=== PATIENT | male | born 1955 | race Caucasian/White ===

== ENCOUNTER → 2017-08-11 06:54 | Outpatient (CLI) | payer MEDICAID, SELFPAY ==
--- NOTE | 2017-08-11 06:57 | CT_ITS ---
STUDY: CT MAXILLOFACIAL SINUSES REASON FOR EXAM: Male, 61 years old. RADIATION DOSAGE (If Supplied By Facility): CTDIvol = ( 33.06 ) mGy, DLP = ( 858.64 ) mGycm TECHNIQUE: The patient was scanned in a multi detector CT scanner. High resolution axial imaging was performed without the administration of intravenous contrast material. Sagittal and coronal images were reconstructed. Individualized dose optimization techniques were used for this CT. COMPARISON: None. FINDINGS: FRONTAL SINUSES: Mucosal thickening of the frontal sinuses. ETHMOIDAL SINUSES: Opacification of the ethmoid sinuses bilaterally. MAXILLARY SINUSES: Mild degree of mucosal thickening of the left maxillary sinus. There is been prior resection of the medial aspects of both maxillary sinuses. SPHENOIDAL SINUSES: Mucosal thickening of the sphenoid sinuses. There is patency of the bilateral maxillary infundibuli with normal uncinate processes, ethmoid bullae, and hiatus semilunaris. Normal bilateral middle turbinates. Normal bilateral inferior turbinates. There is a left sided nasal septal deviation, but without a nasal septal spur. There is patency of the bilateral nasal airways. The visualized osseous structures are normal. The visualized bilateral orbital contents are normal. CT/Sinus/Facial Bone IMPRESSION: Medrano sinusitis. Electronically Signed: Juan Baires MD at 12:36 EST Tel [phone], Service support ,
== END ==
PROVIDERS: Family Provider Family Medicine; PCP Family Medicine; Visit Provider Otolaryngology
DX: J32.9 Chronic sinusitis, unspecified (principal)
CPT/HCPCS: 70486

== ENCOUNTER 2017-08-19 14:45 | Emergency (ER) | payer MEDICAID, SELFPAY ==
[2017-08-19 14:46] VITALS: BP 126/82; PULSE 70; RESP 16; TEMP 36.6; O2SAT 94; BMI 31.4
[2017-08-19 15:00] VITALS: O2SAT 92
--- NOTE | 2017-08-19 15:12 | RAD_ITS ---
STUDY: X-RAY CHEST REASON FOR EXAM: Male, 61 years old. Chest pain and shortness of breath. TECHNIQUE: Single AP portable view of the chest. COMPARISON: May 07, 2017. FINDINGS: Cardiac monitoring leads are present. There appears to be a neurostimulator within the spinal canal. The lungs are underexpanded. There is mild elevation of the right hemidiaphragm. There is right basilar subsegmental atelectasis. There is mild prominence of bronchovascular markings. There is no demonstrated pleural abnormality. There is borderline cardiomegaly. Normal mediastinum and marcell. Normal visualized pulmonary arteries. There is atherosclerotic calcification of the aortic arch with tortuosity. There is demineralization of the osseous structures. Normal visualized ribs, clavicles, and shoulders. There is no demonstrated abnormality of the visualized soft tissue structures of the upper abdomen. RAD/Chest 1 View (Portable) IMPRESSION: 1. Expiratory chest radiograph with pulmonary congestion. 2. A right basilar subsegmental atelectasis. Electronically Signed: Leyda Jain MD at 16:23 EST , Service support ,
--- NOTE | 2017-08-19 15:13 | EKG12_ITS ---
Test Reason : SOB Blood Pressure : / mmHG Vent. Rate : 071 BPM Atrial Rate : 000 BPM P-R Int : 000 ms QRS Dur : 090 ms QT Int : 394 ms P-R-T Axes : 000 -06 -44 degrees QTc Int : 428 ms Normal sinus rhythm Confirmed by ISHAN NGUYEN ([id number]), editorial manager DANY MONTALVO ([id number] on 08/22/2017 1:18:08 PM Referred By: JESUS Confirmed By:ISHAN NGUYEN
--- NOTE | 2017-08-19 15:24 | ED.DCSUM_ITS ---
- ER Visit Summary Date of Service: 08/19/17 Chief Complaint: Shortness of breath, pneumonia History of Present Illness: The patient is a 61 M patient reports fever, body aches, congestion, and cough for the past 6 days. He was seen at urgent care on the and was diagnosed with pneumonia. Patient had no labs or x-rays performed. He was started on albuterol, Medrol Dosepak, and Zithromax. Patient states he was told if not better 24 hours to go to the emergency room. Patient presents today stating he has not had any significant improvement. He does report when he was seen on the his pulse ox was initially 90% but did improve after an albuterol treatment. He has no known respiratory chronic illness. Physical Examination: Blood pressure is 126/82, temperature 97.8, heart rate 70 , respiratory rate 16, pulse ox 94% on room air. Patient sitting upright in bed in no acute distress. He appears nontoxic. Systolic blood pressure the time of my examination is in the 90s. Head and neck examination is unremarkable. Heart is regular rate and rhythm. Lung sounds are diminished throughout. He is speaking full sentences. Abdomen is soft nontender. Test Results: EKG is sinus at 71. No acute ischemia is noted. Artifact from spinal stimulator is noted. Portable chest x-ray reveals pulmonary congestion. Right basilar subsegmental atelectasis is noted. CBC was a white count of 4.1 with 73% neutrophils. Chemistry studies are significant only for glucose of 162. LFTs are normal. Troponin negative. BNP is normal at 56. Lactate is normal. Emergency Department Course and Treatment: Patient was given IV fluids and a cycle of aerosols. After initial round of aerosols there was slight improvement in his air movement. He received 2 more albuterol treatments. Patient was taken off of his supplemental oxygen. He is 92% on room air after returning from a relating to the restroom. He feels significantly improved. He was walked up and down the halls with his sats up to 96% with ambulation. Patient already has Medrol Dosepak, Zithromax, and albuterol at home. He is given a spacer for his inhaler. I also recommended taking Mucinex to help break up the chest congestion. Treatment Plan: [] Disposition: Discharge Impression: URI with bronchospasm This note was generated with Dragon dictation software. It may contain incorrect words, spelling, and punctuation that were not noted in review of the chart prior to signing ED Disposition - Plan for ED Patient: Chief Complaint: Shortness of Breath Referrals: Joshua Blood MD [Primary Care Provider] -
[2017-08-19] MEDS: Ipratropium/Albuterol Sulfate 3 ML AMPUL.NEB INHALATION (15:26)
[2017-08-19] MEDS: Albuterol 2.5 MG/3 ML VIAL.NEB. INHALATION ×4 (15:26→16:58)
[2017-08-19 15:29] VITALS: PULSE 65; RESP 16
[2017-08-19 15:31] LABS: Absolute Lymphocyte Count 0.72 X10^3/ul (0.83-4.51); Basophil# 0.02 X10^3/uL; Basophil% 0.5 % (0-1); Hematocrit 42.4 % (40-54); Hemoglobin 14.2 g/dl (13.0-16.5); Lymphocyte # 0.72 X10^3/ul (4.0); Lymphocyte % 17.7 % (19-41); Mean Corp Hgb Conc 33.5 g/gl (32-36); Mean Corpuscular Hgb 28.7 pg (27.0-32.0); Mean Corpuscular Volume 85.8 fL (80-94); Mean Platelet Vol. 10.4 fl (6.2-12.0); Monocyte# 0.36 X10^3/uL; Monocyte% 8.9 % (0-10); Neutrophil # 2.96 X10^3/uL (2.7-7.7); Neutrophil % 72.9 % (47-70); Platelet Count 152 K/mm3 (150-450); RBC Distribution Width CV 14.1 % (11.6-14.6); RBC Distribution Width SD 43.8 fl (35.1-43.9); Red Blood Count 4.94 M/mm3 (4.6-6.2); White Blood Count 4.1 K/mm3 (4.4-11.0)
[2017-08-19 15:36] LABS: POSITIVE COUNT NO; POSITIVE DIFFERENTIAL NO; POSITIVE MORPHOLOGY NO
[2017-08-19 15:44] LABS: AST(SGOT) 32 U/L (15-37); Alanine Aminotransfer ALT/SGPT 39 U/L (16-61); Albumin, Serum 3.3 g/dL (3.2-5.0); Alkaline Phosphatase 50 U/L (45-117); Anion Gap 8 (5-15); BUN 17 mg/dL (7-18); BUN/Creat Ratio 16.7 RATIO (10-20); Bilirubin, Direct 0.09 mg/dL (0.00-0.30); Calcium,Total 8.1 mg/dL (8.5-10.1); Chloride 107 mmol/L (98-107); Creatinine, Serum 1.02 mg/dL (0.70-1.30); EST Glomerular Filtration Rate 78 mL/min (>60); Est Glom Filt Rate - Afr Amer 95 mL/min (>60); Estimated Creatinine Clearance 79.98 ml/min; Globulin 3.7 g/dL (2.2-4.2); Glucose 162 mg/dL (74-106); Potassium 3.8 mmol/L (3.5-5.1); Sodium Level 139 mmol/L (136-145)
[2017-08-19] MEDS: 0.9% Normal Saline 1,000 ML 1000 ML IV (15:45)
[2017-08-19 16:24] LABS: Lactic Acid 1.8 mmol/L (0.4-2.0)
[2017-08-19 16:59] VITALS: PULSE 67; RESP 16
[2017-08-19 17:05] VITALS: BP 112/74; PULSE 64; RESP 17; O2SAT 96
[2017-08-19 17:28] VITALS: O2SAT 95
[2017-08-19 17:47] LABS: BNP,B-Type NATRIURETIC PEPTIDE 56.6 pg/mL (0-100)
--- NOTE | 2017-08-19 18:22 | ED.DEP ---
ED Disposition - Plan for ED Patient: Disposition: Home or Assisted Living Chief Complaint: Shortness of Breath Instructions: ED URI Viral W Wheezing Prescriptions: Guaifenesin [Mucinex] 1,200 mg PO BID PRN #10 tab PRN Reason: Chest Congestion/Secretions Referrals: Joshua Blood MD [Primary Care Provider] - 5-7 Days
== END 2017-08-19 18:33 | disposition home or self-care (01) ==
PROVIDERS: Emergency Provider Emergency Medicine; Family Provider Family Medicine; PCP Family Medicine
DX: J98.01 Acute bronchospasm (principal); J06.9 Acute upper respiratory infection, unspecified; J18.9 Pneumonia, unspecified organism; K21.9 Gastro-esophageal reflux disease without esophagitis; I10 Essential (primary) hypertension; E78.00 Pure hypercholesterolemia, unspecified; F41.9 Anxiety disorder, unspecified; Z79.51 Long term (current) use of inhaled steroids; Z79.82 Long term (current) use of aspirin; Z79.899 Other long term (current) drug therapy
CPT/HCPCS: 36415; 71045; 80048; 80076; 83605; 83880; 84484; 85025; 87040; 93005; 94640; 94664; 96360; 96361; 99284; J7030; A4216

== ENCOUNTER → 2019-01-25 | Outpatient (CLI) | payer OTHER, SELFPAY ==
--- NOTE | 2019-01-25 12:57 | CT_ITS ---
STUDY: CT LUMBAR SPINE WITHOUT CONTRAST REASON FOR EXAM: Male, 63 years old. Lumbar radiculopathy. Bilateral leg pain. History of multiple spinal surgeries and spinal cord stimulator. RADIATION DOSAGE (If Supplied By Facility): CTDIvol = ( 29.89 ) mGy, DLP = ( 853.84 ) mGycm TECHNIQUE: The patient was scanned in a multi detector CT scanner. High resolution transaxial imaging was performed. Images were obtained from T12 to the sixth. Sagittal and coronal images were reconstructed. Individualized dose optimization techniques were used for this CT. COMPARISON: None FINDINGS: Normal lumbar lordosis. There is no substantial scoliosis. Normal alignment of the lumbar vertebral bodies. There is no evidence of posterior fusion of L3-L5 with L4 laminectomy. There is no evidence of acute fracture or loss of vertebral axial height. T12-L1: There is endplate spondylosis. There is loss of disc height with vacuum disc phenomenon. There is facet joint degenerative change. Normal spinal canal and lateral recesses. Normal bilateral intervertebral neural foramina. L1-2: Endplate spondylosis. There is loss of disc height with a diffusely bulging annulus. There is facet joint degenerative change. Normal central canal and bilateral lateral recesses. Normal bilateral intervertebral neural foramina. L2-3: Loss of disc height with endplate spondylosis. There is a diffusely bulging annulus. There is facet joint degenerative change. There is minimal stenosis of the central canal. Normal bilateral lateral recesses. Narrowing on the bilateral intervertebral neural foramina without impingement on the exiting nerve root. L3-4: There is a disc spacer slightly to the left of center. There is surgical absence of the upper facet of the L4 vertebral body on the left. Normal central canal and bilateral lateral recesses. Normal bilateral intervertebral neural foramina. L4-5: There is a disc spacer to the left of center. There is surgical absence of the left facet joint. Normal central canal and bilateral lateral recesses. Normal bilateral intervertebral neural foramina. L5-S1: Normal endplates. There is mild loss of disc height with a minimal bulging annulus. There is marked facet joint degenerative change. Central canal. There is mild impingement on the lateral bilateral lateral recess. Normal bilateral intervertebral neural foramina. Mild atherosclerotic changes of the abdominal aorta. CT/Spine Lumbar without Contrast IMPRESSION: 1. Surgical fusion of L3-L5 as above. 2. Degenerative changes of the upper lumbar spine, as above. No acute fracture or subluxation. Electronically Signed: Aris Leonard DO at 17:08 EDT Tel [phone], Service support ,
== END | disposition home or self-care (01) ==
PROVIDERS: Family Provider Family Medicine; PCP Family Medicine
DX: M54.16 Radiculopathy, lumbar region (principal)
CPT/HCPCS: 72131

== ENCOUNTER → 2020-05-27 10:21 | Outpatient (CLI) | payer MEDICARE, SELFPAY ==
[2020-05-20 09:29] VITALS: BMI 30.7
--- NOTE | 2020-05-27 10:24 | ECHOD_ITS ---
Reason For Study: Arrhythmia Procedure This was a 2D Doppler, Color Flow transthoracic echocardiogram. Exam performed in department. Left Ventricle Normal LV size. The estimated ejection fraction is 53 %. Left ventricular systolic function is lower limits of normal. Stage 1 diastolic dysfunction. No regional wall motion abnormalities noted. Right Ventricle Normal RV size. Normal systolic function. Atria Normal left atrium. Normal right atrium. Bubble contrast study negative for right to left interatrial shunt. Mitral Valve Normal mitral valve. Mild (1+) eccentric mitral valve insufficiency. Tricuspid Valve Normal tricuspid valve. Mild tricuspid valve insufficiency. Pulmonary artery systolic pressure is 20 mmHg. Aortic Valve Normal aortic valve. Trisinus/trileaflet aortic valve. Pulmonic Valve Normal pulmonic valve. Great Vessels Normal aortic root. The pulmonary artery is normal size. Normal inferior vena cava. Pericardium/Pleural No pericardial effusion. Medication 22 gauge I.V. with prn adaptor inserted into right arm. Performed a rapid injection of agitated mix of 9 cc saline and 1cc air to assess for atrial septal defect. MMode/2D Measurements & Calculations LVIDd: 4.3 cm IVSd: 1.4 cm Ao root diam: 3.5 cm LVIDs: 2.7 cm LVPWd: 1.1 cm RVDd: 3.2 cm FS: 37.6 % LAV(MOD-bp): 50.3 ml EDV(MOD-sp4): 91.4 ml EDV(MOD-sp2): 90.4 ml LAV(MOD-bp) Indexed: 23.4 ml/m2 ESV(MOD-sp4): 44.4 ml EF(MOD-sp2): 54.3 % LAV(MOD-sp2): 57.3 ml EF(MOD-sp4): 51.5 % LAV(MOD-sp4): 43.8 ml SV(MOD-sp4): 47.1 ml SV(MOD-sp2): 49.1 ml LA A4 area: 17.0 cm2 LA dimension(2D): 4.2 cm RA A4 area: 10.8 cm2 Doppler Measurements & Calculations MV E max abraham: 55.9 cm/sec Lat Peak E' Abraham: 8.3 cm/sec Med Peak E' Abraham: 5.4 cm/sec MV A max abraham: 92.5 cm/sec E/E' lat: 6.8 E/E' med: 10.4 MV E/A: 0.60 LV V1 max: 91.3 cm/sec PA V2 max: 98.0 cm/sec TR max abraham: 202.0 cm/sec LV V1 max P.3 mmHg TR max P.4 mmHg Interpretation Summary Normal LV size. The estimated ejection fraction is 53 %. Left ventricular systolic function is lower limits of normal. Mild (1+) eccentric mitral valve insufficiency. Stage 1 diastolic dysfunction. Pulmonary artery systolic pressure is 20 mmHg. Ordering Physician: Bipin Fernandes Referring Physician: Aarti Resendiz M.D. Performed By: Leslie Contreras RDCS
== END ==
PROVIDERS: PCP Family Medicine; Referring Provider Internal Medicine Cardiovascular Disease; Visit Provider Internal Medicine Cardiovascular Disease
DX: R00.2 Palpitations (principal)
CPT/HCPCS: 93306; A4216

== ENCOUNTER → 2020-06-15 10:11 | Outpatient (CLI) | payer MEDICARE, SELFPAY ==
[2020-05-20 09:29] VITALS: BMI 30.7
== END ==
PROVIDERS: PCP Family Medicine; Referring Provider Registered Nurse; Visit Provider Registered Nurse
DX: R05 Cough (principal)
CPT/HCPCS: 87633; 87635; C9803; U0003

== ENCOUNTER → 2020-08-21 13:57 | Outpatient (CLI) | payer MEDICARE, SELFPAY ==
[2020-06-22 09:57] VITALS: BMI 29.0
--- NOTE | 2020-08-21 14:01 | RAD_ITS ---
STUDY: X-RAY - CERVICAL SPINE REASON FOR EXAM: Male, 64 years old. neck and right shoulder pain -- surgery years ago TECHNIQUE: 5 view(s) of the cervical spine were obtained. COMPARISON: None FINDINGS: Normal anterior atlantoaxial articulation. Normal odontoid process. There is straightening of the normal cervical lordosis. Status post anterior spinal fusion of C3, C4 and C5 with plate and screw hardware. Normal alignment of the fused segment and hardware. Interbody fusion hardware at C6 and C7. Facet articulations appear largely fused bilaterally. The oblique positioning is not ideal for evaluation of the foramen; however, I suspect a component of foraminal narrowing at most levels. The soft tissue structures are unremarkable. RAD/Cerv Spine 4 or 5 Views IMPRESSION: Straightening of the cervical spine status post anterior spinal fusion of C3, C4 and C5 with plate and screw hardware and interbody fusion of C6 and C7. Hardware appears in good position. Facet articulations appear largely fused bilaterally through these segments. I suspect significant foraminal narrowing bilaterally. CT evaluation recommended for more adequate visualization of the foramen. Electronically Signed: Shanti Mcintyre MD at 17:06 EST , Service support ,
== END ==
PROVIDERS: PCP Family Medicine; Referring Provider Family Medicine; Visit Provider Family Medicine
DX: M54.2 Cervicalgia (principal)
CPT/HCPCS: 72050

== ENCOUNTER 2021-10-02 11:16 | Outpatient (CLI) | payer MEDICARE, SELFPAY | END 2021-10-02 23:59 | disposition home or self-care (01) | LOC: LABSPEC 11:17 | PROVIDERS: PCP Family Medicine; Visit Provider Otolaryngology | DX: J32.9 Chronic sinusitis, unspecified (principal) | CPT/HCPCS: 87070; 87205 ==

== ENCOUNTER → 2021-10-14 | Outpatient (CLI) | payer MEDICARE, SELFPAY ==
--- NOTE | 2021-10-14 13:11 | CT_ITS ---
STUDY: CT MAXILLOFACIAL SINUSES REASON FOR EXAM: Male, 66 years old. CHRONIC SINUSITIS RADIATION DOSAGE (If Supplied By Facility): CTDIvol = ( 33.06 ) mGy, DLP = ( 780.13 ) mGycm TECHNIQUE: The patient was scanned in a multi detector CT scanner. High resolution axial imaging was performed without the administration of intravenous contrast material. Sagittal and coronal images were reconstructed. Individualized dose optimization techniques were used for this CT. COMPARISON: CT sinuses 08/11/2017. FINDINGS: FRONTAL SINUSES: Mucosal thickening bilateral greater on the left. ETHMOIDAL SINUSES: Partially opacified bilaterally. MAXILLARY SINUSES: Postsurgical changes bilaterally. Minimal mucosal thickening decreased compared to prior. SPHENOIDAL SINUSES: Minimal mucosal thickening. There is patency of the bilateral maxillary infundibuli with normal uncinate processes, ethmoid bullae, and hiatus semilunaris. Normal bilateral middle turbinates. Normal bilateral inferior turbinates. Mild leftward septal deviation. There is patency of the bilateral nasal airways. The visualized osseous structures are normal. The visualized bilateral orbital contents are normal. CT/Sinus/Facial Bone IMPRESSION: Pansinusitis similar to prior study. Electronically Signed: Jenni Acuna MD at 2:17 EDT ,
== END | disposition home or self-care (01) ==
LOC: CT 13:10
PROVIDERS: PCP Family Medicine; Referring Provider Otolaryngology; Visit Provider Otolaryngology
DX: J32.9 Chronic sinusitis, unspecified (principal)
CPT/HCPCS: 70486

== ENCOUNTER → 2022-05-05 | Outpatient (CLI) | payer MEDICARE, SELFPAY ==
--- NOTE | 2022-05-05 16:32 | CT_ITS ---
EXAM: CT SPINE - CERVICAL WITHOUT IV REASON FOR EXAM: Male, 66 years old. NECK PAIN CERVICAL RADICULITIS HISTORY: NECK PAIN CERVICAL RADICULITIS Individualized dose optimization techniques were used for this CT. TECHNIQUE: Multiplanar images were obtained of the cervical spine. IV contrast was not utilized. COMPARISON: xr 2.. FINDINGS: The vertebral bodies do maintain their height. The odontoid process is intact. No pre-vertebral soft tissue swelling is seen. The intravertebral disc height is lost. There are scattered lymph nodes in the neck. There are degenerative changes of the osseous structures. There is bilateral facet arthropathy. There are scattered levels of foraminal stenosis. There are vascular calcifications. Cervical spine fusion hardware noted. Fusion cages in place. CT/Spine Cervical without Contras IMPRESSION: Degenerative changes of the cervical spine. There are no acute findings. Electronically Signed: Trell Aguiar MD at 19:32 EST ,
== END | disposition home or self-care (01) ==
PROVIDERS: PCP Family Medicine
DX: M54.12 Radiculopathy, cervical region (principal)
CPT/HCPCS: 72125

== ENCOUNTER 2022-05-07 12:12 | Emergency (ER) | payer MEDICARE, SELFPAY ==
[2022-05-07 12:14] VITALS: BP 157/95; PULSE 93; RESP 14; TEMP 36.8; O2SAT 96; BMI 33.0
--- NOTE | 2022-05-07 12:37 | EDS_ITS ---
HPI History of Present Illness Chief Complaint: Dizziness Informant: patient Onset/Context/Timing Onset: Today Context: Sudden Onset Timing: Continuous Quality: Lightheaded Location: Generalized Worsened by: Nothing Relieved by: Nothing Narrative Narrative: Patient presents with dizziness that began today. Patient states he woke up and had a headache. Patient states he felt dizzy when he woke up. Patient describes it as a lightheaded feeling. Patient states nothing makes it worse and nothing makes it better. Patient admits to some increasing fatigue over the last few days. Patient states his blood pressure today was in the 150s systolic over upper 90s diastolic. Patient admits to a mild headache. Patient states nothing makes his dizziness worse and nothing makes it better. Patient denies any spinning sensation. Patient denies any nausea or vomiting. [facility] Medical History GERD (gastroesophageal reflux disease) Graves' disease Hyperlipidemia Obesity Home Medications fluticasone propionate 50 mcg/actuation nasal spray,suspension 9.9 ml NS PRN PRN Allergies 05/07/17 [History Last Taken Unknown] oxycodone-acetaminophen 5 mg-325 mg tablet 0.5 tab PO Q4H PRN PRN Pain 05/07/17 [History Last Taken Unknown] levothyroxine 25 mcg tablet (Levoxyl) 25 mcg PO DAILY 05/18/20 [History Last Taken Unknown] loratadine 10 mg disintegrating tablet (Alavert) 10 mg PO DAILY 05/18/20 [History Last Taken Unknown] pantoprazole 40 mg tablet,delayed release 40 mg PO DAILY 05/18/20 [History Last Taken Unknown] aspirin 81 mg tablet,delayed release (Adult Aspirin Regimen) 81 mg PO DAILY 05/20/20 [History Last Taken Unknown] ibuprofen 200 mg capsule 200 mg PO Q6H PRN 05/20/20 [History Last Taken Unknown] tizanidine 2 mg capsule 2 mg PO QHS 05/20/20 [History Last Taken Unknown] cholecalciferol (vitamin D3) 125 mcg (5,000 unit) capsule 125 mcg PO DAILY 06/22/20 [History Last Taken Unknown] multivitamin 1 tab PO DAILY 06/22/20 [History Last Taken Unknown] meclizine 25 mg tablet 25 mg PO Q8H PRN PRN Dizziness #20 tabs 05/07/22 [Rx Last Taken Unknown] Allergy/AdvReac Type Severity Reaction Status Date / Time promethazine [From Phenergan] AdvReac spinning Verified 05/07/22 12:14 Family History Brother Hypertension Heart disease Atrial Fib RFA Uncle CAD (coronary artery disease) maternal Myocardial infarction, Onset Age: 68 maternal Uncle CVA (cerebral vascular accident) Hypertension paternal Father Cancer lung cancer Grandmother Cancer lung Brother Heart disease Surgical History H/O arthroscopic knee surgery History of back surgery History of left heart catheterization (05/08/17) History of neck surgery S/P insertion of spinal cord stimulator Social History Smoking Status: Never smoker alcohol intake: never ROS ROS ED Constitutional Constitutional ED: Denies chills or fever(s) Eyes Eyes: Denies blurry vision or change in vision ENT ENT ED: Denies rhinorrhea or sore throat Cardiovascular Cardiovascular: Denies chest pain or palpitations Respiratory/Chest Respiratory/Chest: Denies cough or dyspnea Gastrointestinal Gastrointestinal: Denies nausea or vomiting Genitourinary Genitourinary ED: Denies dysuria or hematuria Musculoskeletal Musculoskeletal: Reports neck pain; Denies back pain Integumentary Denies abscess or rash Neurologic Neurologic: Reports headache(s); Denies weakness Allergic/Immunologic Allergic/Immunologic ED: Denies mouth swelling or urticaria EXAM Physical Exam Const Vital Signs: 05/07/22 12:14 05/07/22 12:44 05/07/22 13:35 Temperature 98.2 F Temperature Source Temporal Pulse Rate 93 Pulse Rate [Lying] 82 Pulse Rate [Sitting (for 1 minute prior to obtaining)] 96 Pulse Rate [Standing (for 1 minute prior to obtaining)] 96 Respiratory Rate 14 Respiratory Effort Normal Non-Labored Respiratory Pattern Normal Blood Pressure 157/95 H Blood Pressure [Lying] 157/97 H Blood Pressure [Sitting (for 1 minute prior to obtaining)] 138/101 H Blood Pressure [Standing (for 1 minute prior to obtaining)] 148/103 H Blood Pressure Mean 115 Blood Pressure Mean [Lying] 117 Blood Pressure Mean [Sitting (for 1 minute prior to obtaining)] 113 Blood Pressure Mean [Standing (for 1 minute prior to obtaining)] 118 Pulse Ox 96 Oxygen Delivery Method Room Air 05/07/22 14:20 Temperature Temperature Source Pulse Rate 84 Pulse Rate [Lying] Pulse Rate [Sitting (for 1 minute prior to obtaining)] Pulse Rate [Standing (for 1 minute prior to obtaining)] Respiratory Rate 18 Respiratory Effort Respiratory Pattern Blood Pressure 155/99 H Blood Pressure [Lying] Blood Pressure [Sitting (for 1 minute prior to obtaining)] Blood Pressure [Standing (for 1 minute prior to obtaining)] Blood Pressure Mean 117 Blood Pressure Mean [Lying] Blood Pressure Mean [Sitting (for 1 minute prior to obtaining)] Blood Pressure Mean [Standing (for 1 minute prior to obtaining)] Pulse Ox 93 Oxygen Delivery Method Room Air Positive well nourished and well developed General Appearance ED: well developed and NAD HEENT Reports moist mucous membranes Eyes PERRL and EOMs intact bilaterally Eyes Narrative: There is no nystagmus noted. Neck supple and no JVD Resp normal respiratory effort and clear to auscultation bilaterally Cardio regular rate, regular rhythm and no murmurs GI normal to inspection, nondistended, normoactive bowel sounds and non-tender Palpation: soft Extremity normal to inspection General Extremety ED: Negative for edema or tenderness General Extremity: Negative for edema Neuro oriented x3, CN's II-XII intact bilaterally and no sensory deficits noted Sensorium / Orientation: alert Motor Exam: strength 5/5 throughout Psych mental status grossly normal Skin no rashes or lesions noted MDM MDM MDM Narrative Medical decision making narrative: Patient was given IV fluids and meclizine here. CT scan of the brain was obtained. There is no acute intracranial abnormality. This was interpreted by the radiologist and reviewed by myself. CBC was within normal limits. Comprehensive metabolic profile was within normal limits. Patient is feeling better on reevaluation. Patient was able to ambulate to the bathroom without difficulty. Patient states his dizziness has improved. Patient was given a prescription for meclizine. Patient was instructed to continue to monitor his blood pressures at home. Patient was instructed to follow-up with his primary care physician in 3 to 5 days. Patient understood and was agreeable with the plan. All questions were answered. Lab Data Attestation: I reviewed the patient's lab results. Labs: Laboratory Results - last 24 hr 05/07/22 05/07/22 13:06 13:06 WBC 5.9 RBC 5.00 Hgb 15.1 Hct 44.0 MCV 88.0 MCH 30.2 MCHC 34.3 RDW Std Deviation 44.7 H RDW Coeff of Linda 13.9 Plt Count 266 MPV 9.4 Immature Gran % (Auto) 0.300 Neut % (Auto) 68.2 Lymph % (Auto) 21.9 [place] % (Auto) 6.0 Eos % (Auto) 2.7 Baso % (Auto) 0.9 Absolute Neuts (auto) 4.0 Absolute Lymphs (auto) 1.28 Nucleated RBC % 0 Sodium 140 Potassium 3.8 Chloride 108 H Carbon Dioxide 25.0 Anion Gap 7 BUN 17 Creatinine 1.02 Estim Creat Clear Calc 72.56 Est GFR (MDRD) Af Amer 94 Est GFR (MDRD) Non-Af 77 BUN/Creatinine Ratio 16.7 Glucose 139 H Calcium 9.2 Total Bilirubin 0.20 AST 17 ALT 24 Alkaline Phosphatase 53 Total Protein 7.2 Albumin 3.9 Globulin 3.3 Albumin/Globulin Ratio 1.2 Radiography Diagnostic Testing: Clinical Impression(s) from Imaging Studies Brain CT 05/07/22 12:43 IMPRESSION: No acute intracranial process identified. Mild chronic involutional and white matter changes. Mild paranasal sinus inflammatory disease. Electronically Signed: Manju Santana MD at 13:57 EST Reading Location ID and State: [facility] / ID Tel , Service support , Discharge Plan Triage Chief Complaint: Dizziness ED Provider: Param Bowman Dx/Rx/DC Orders Clinical Impression: Vertigo Instructions: ED Vertigo, Unspecified Prescriptions: New meclizine 25 MG tablet 25 mg PO Q8H PRN PRN (Reason: Dizziness) Qty: 20 0RF No Action pantoprazole 40 mg tablet,delayed release (DR/EC) 40 mg PO DAILY loratadine [Alavert] 10 mg tablet,disintegrating 10 mg PO DAILY levothyroxine [Levoxyl] 25 mcg tablet 25 mcg PO DAILY ibuprofen 200 mg capsule 200 mg PO Q6H PRN aspirin [Adult Aspirin Regimen] 81 mg tablet,delayed release (DR/EC) 81 mg PO DAILY cholecalciferol (vitamin D3) 125 mcg (5,000 unit) capsule 125 mcg PO DAILY multivitamin Tablet 1 tab PO DAILY oxycodone-acetaminophen 1 TABLET tablet 0.5 tab PO Q4H PRN PRN (Reason: Pain) fluticasone propionate 9.9 ML spray,suspension 9.9 ml NS PRN PRN (Reason: Allergies) tizanidine 2 mg capsule 2 mg PO QHS Primary Care Provider: Aarti Resendiz Referrals: Aarti Resendiz MD [Primary Care Provider] - 5-7 Days Disposition Disposition: Home, Self Care
--- NOTE | 2022-05-07 12:43 | CT_ITS ---
HISTORY: Dizziness. TECHNIQUE: Multiple axial images were obtained of the head without intravenous contrast. A radiation dose optimization technique was used for this scan. 261 images. COMPARISON: CT sinuses 10/14/2021. FINDINGS: BRAIN PARENCHYMA: Mild chronic small vessel ischemic gliosis. No acute intra-axial hemorrhage identified. CSF SPACES: Mild volume loss. Left parietal encephalomalacia, likely old infarct. No midline shift or other significant mass effect. No acute extra-axial hemorrhage seen. OTHER: Intact calvarium. Sinonasal postoperative change with mild frontal ethmoid mucosal thickening. Unremarkable orbits. CT/Brain/Head without Contrast IMPRESSION: No acute intracranial process identified. Mild chronic involutional and white matter changes. Mild paranasal sinus inflammatory disease. Electronically Signed: Manju Santana MD at 13:57 EST ,
[2022-05-07 12:44] VITALS: BP 138/101; BP 148/103; BP 157/97; PULSE 82; PULSE 96
[2022-05-07 13:13] LABS: Absolute Lymphocyte Count 1.28 X10^3/uL (0.83-4.51); Basophil# 0.05 X10^3/uL; Basophil% 0.9 % (0-1); Eosinophil# 0.16 X10^3/uL; Eosinophils% 2.7 % (0-5); Hemoglobin 15.1 g/dL (13.0-16.5); Lymphocyte # 1.28 X10^3/ul (0.83-4.51); Lymphocyte % 21.9 % (19-41); Mean Corp Hgb Conc 34.3 g/dL (32-36); Mean Corpuscular Hgb 30.2 pg (27.0-32.0); Mean Platelet Vol. 9.4 fl (6.2-12.0); Monocyte# 0.35 X10^3/uL; NRBC Flagged by Analyzer 0 % (0-5); Neutrophil # 3.99 X10^3/uL (2.7-7.7); Neutrophil % 68.2 % (47-70); Platelet Count 266 K/mm3 (150-450); RBC Distribution Width CV 13.9 % (11.6-14.6); RBC Distribution Width SD 44.7 fl (35.1-43.9); White Blood Count 5.9 K/mm3 (4.4-11.0)
[2022-05-07 13:29] LABS: ALB/GLOB Ratio 1.2 RATIO (0.9-2.4); AST(SGOT) 17 U/L (15-37); Alanine Aminotransfer ALT/SGPT 24 U/L (16-61); Albumin, Serum 3.9 g/dL (3.2-5.0); Alkaline Phosphatase 53 U/L (45-117); Anion Gap 7 (5-15); BUN 17 mg/dL (7-18); BUN/Creat Ratio 16.7 RATIO (10-20); Calcium,Total 9.2 mg/dL (8.5-10.1); Chloride 108 mmol/L (98-107); Creatinine, Serum 1.02 mg/dL (0.70-1.30); EST Glomerular Filtration Rate 77 mL/min (>60); Est Glom Filt Rate - Afr Amer 94 mL/min (>60); Estimated Creatinine Clearance 72.56 ml/min; Globulin 3.3 g/dL (2.2-4.2); Glucose 139 mg/dL (74-106); Potassium 3.8 mmol/L (3.5-5.1); Protein, Total 7.2 g/dL (6.4-8.2); Sodium Level 140 mmol/L (136-145)
[2022-05-07] MEDS: 0.9% Normal Saline 1,000 ML 1000 ML IV (13:33)
[2022-05-07] MEDS: Meclizine HCl 25 MG Tablet PO (14:18)
--- NOTE | 2022-05-07 14:19 | ED.RN ---
pt denies feeling dizzy at this time. was up to bathroom and back to bed.
[2022-05-07 14:20] VITALS: BP 155/99; PULSE 84; RESP 18; O2SAT 93
[2022-05-07 15:26] VITALS: RESP 16
== END 2022-05-07 15:40 | disposition home or self-care (01) ==
PROVIDERS: Emergency Provider Emergency Medicine; PCP Family Medicine; Visit Provider Emergency Medicine
DX: R42 Dizziness and giddiness (principal); E78.5 Hyperlipidemia, unspecified; R51.9 Headache, unspecified
CPT/HCPCS: 70450; 80053; 85025; 87428; 96360; 96361; 99285; J7030; A4216

== ENCOUNTER → 2023-02-07 | Outpatient (CLI) | payer MEDICARE, SELFPAY | END | disposition home or self-care (01) | LOC: CVS 13:22 | PROVIDERS: PCP Family Medicine; Referring Provider Physician Assistant Surgical; Visit Provider Physician Assistant Surgical | DX: S53.401A Unspecified sprain of right elbow, initial encounter (principal); M25.521 Pain in right elbow; M25.421 Effusion, right elbow; X58.XXXA Exposure to other specified factors, initial encounter ==

== ENCOUNTER 2023-07-21 15:49 | Outpatient (CLI) | payer MEDICARE, SELFPAY ==
--- OUTSIDE RECORDS SUMMARY | 2023-07-21 16:22 | XMS RPT_ITS | CCD ---
Author Name Unknown Address [address] [place] [address] Organization [facility] Care Team Providers Care Rug Setter [place] Name Role Phone CELY ASTORGA Unavailable Unavailable ARI ASTORGANETH Unavailable Unavailable ARI ASTORGANETH Unavailable Unavailable CELY ASTORGA Unavailable Unavailable NOEMI PAYAN Unavailable CELY ASTORGA E Unavailable Unavailable CELY ASTORGA Unavailable Unavailable Noemi Payan MD Primary Care Provider Noemi Payan MD Primary Care Provider Noemi Payan MD Primary Care Provider Noemi Payan MD Primary Care Provider HASAN, MIRIAN Referring Unavailable NOEMI PAYAN Primary Care Unavailab NOEMI Antoine Primary Care Unavailab le HASAN, MIRIAN Referring Unavailable NOEMI PAYAN Primary Care Unavailab le HASAN, MIRIAN Attending Unavailable NOEMI PAYAN Referring Unavailab le HASAN, MIRIAN Attending Unavailable NOEMI PAYAN Primary Care Unavailab hector Allergies Allergy Classification Reported Allergen(s) Allergy Type Date of Onset Reaction(s) Facility (8 sources) promethazine; Translations: [PROMETHAZINE HCL] Drug Allergy 7 Mental Status Change [facility] Repository (2 sources) Amoxicillin Drug Allergy 3 [facility] sources) Promethazine-Ph enylephrine Propensity to adverse reactions to drug 3 [facility] Work Phone: Medications Current Medications Medication Drug Class(es) Dates Sig (Normalized) Sig (Original) acetaminophen 325 mg / oxyCODONE hydrochloride 5 mg oral tablet (5 sources) Opioid Agonist Start: 03-03-2022 End: 04-02-2022 take 1 tablet by mouth once at bedtime oxyCODONE-acetaminop hen (PERCOCET) 5-325 MG per tablet Indications: Displacement of lumbar intervertebral disc without myelopathy Take 1 tablet by mouth in the morning and at bedtime for 30 days. 60 tablet 0 03/03/2022 04/02/2022 Active Completed/Discontinued Medications Medication Drug Class(es) Dates Sig (Normalized) Sig (Original) acetaminophen 250 mg / aspirin 250 mg / caffeine 65 mg oral tablet (2 sources) Platelet Aggregation Inhibitor, Nonsteroidal Anti-inflammatory Drug, Central Nervous System Stimulant, Methylxanthine take 1 tablet by mouth every six hours as needed for headache aspirin-acetamin ophen-caffeine (EXCEDRIN MIGRAINE) 250-250-65 MG per tablet Take 1 tablet by mouth every 6 hours as needed for Headaches 0 Suspended [id number] 200 actuat albuterol 0.09 mg/actuat metered dose inhaler (4 sources) beta2-Adrenergic Agonist Start: 08-24-2017 take 2 puff(s) by inhalation every four hours as needed for wheezing albuterol HFA (VENTOLIN HFA) 90 mcg/actuation inhaler Indications: Bacterial pneumonia Inhale 2 Puffs as instructed every 4 hours as needed for Wheezing/Shortne ss of Breath. 1 Inhaler 2 08/24/2017 Active Problems Active Problems Problem Classification Problem Date Documented Date Episodic/Chronic Diabetes mellitus without complication (9 sources) Prediabetes; Translations: [Prediabetes] Onset: 10-05-2018 Episodic Disorders of lipid metabolism (4 sources) Mixed hyperlipidemia; Translations: [Mixed hyperlipidemia] Onset: 06-13-2017 06-13-2017 Chronic Esophageal disorders (4 sources) Gastroesophageal reflux disease; Translations: [Gastro-esophageal reflux disease without esophagitis] 03-28-2017 Chronic Essential hypertension (1 source) Essential (primary) hypertension; Translations: [Essential (primary) hypertension] Onset: 04-26-2017 Chronic Nutritional deficiencies (8 sources) Vitamin D deficiency; Translations: [Vitamin D deficiency, unspecified] Onset: 09-11-2019 Chronic Other connective tissue disease (2 sources) Sympathetically maintained pain; Translations: [Neuralgia and neuritis, unspecified] 04-26-2018 Episodic Other lower respiratory disease (1 source) Snoring; Translations: [Snoring] Episodic Other nervous system disorders (2 sources) Complex regional pain syndrome; Translations: [Complex regional pain syndrome I, unspecified] 03-09-2017 Chronic Other nutritional; endocrine; and metabolic disorders (1 source) Obese class I; Translations: [Obesity, unspecified] Chronic Other nutritional; endocrine; and metabolic disorders (4 sources) Body mass index 30+ - obesity; Translations: [Obesity, unspecified] 03-28-2017 Chronic Other nutritional; endocrine; and metabolic disorders (2 sources) Obese class II; Translations: [Obesity, unspecified] Chronic Residual codes; unclassified (4 sources) H/O Spinal surgery; Translations: [Presence of other specified functional implants] 04-13-2017 Chronic Spondylosis; intervertebral disc disorders; other back problems (12 sources) Degeneration of cervical intervertebral disc; Translations: [Other cervical disc degeneration, unspecified cervical region] Onset: 05-16-2013 03-28-2017 Chronic Spondylosis; intervertebral disc disorders; other back problems (9 sources) Chronic back pain ; Translations: [Dorsalgia, unspecified] Onset: 05-16-2013 03-28-2017 Episodic Thyroid disorders (13 sources) Hypothyroidism; Translations: [Hypothyroidism, unspecified] Onset: 02-09-2017 Chronic Unclassified (1 source) Unknown / UNK(Unknown) Onset: 04-26-2017 Past or Other Problems Problem Classification Problem Date Documented Da te Episodic/Chronic Malaise and fatigue (4 sources) Fatigue; Translations: [Other fatigue] Onset: 06-13-2017 06-13-2017 Episodic Nonspecific chest pain (2 sources) Chest pain, unspecified; Translations: [Chest pain, unspecified] Onset: 04-26-2017 Episodic Other circulatory disease (3 sources) Elevated blood-pressure reading without diagnosis of hypertension; Translations: [Elevated blood-pressure reading, without diagnosis of hypertension] Onset: 10-04-2022 Episodic Other lower respiratory disease (1 source) Other forms of dyspnea; Translations: [Other forms of dyspnea] Onset: 04-26-2017 Episodic Other non-traumatic joint disorders (3 sources) Shoulder pain; Translations: [Pain in left shoulder] Onset: 08-20-2019 08-20-2019 Episodic Other non-traumatic joint disorders (1 source) Pain in left shoulder; Translations: [Pain in joint, shoulder region] Onset: 08-20-2019 08-20-2019 Episodic Results Test Name Value Interpretation Reference Range Facil ity Vital Signs Date Time Vital Sign Value Performing Clinician Faci lity 04-06-2023 09:23-0400 Body height 172.7 cm Mirian Carias MD Work Phone: [facility] 04-06-2023 09:23-0400 Body weight 104.33 kg Mirian Carias MD Work Phone: [facility] 04-06-2023 09:23-0400 Diastolic blood pressure 81 mm[Hg] Mirian Carias MD Work Phone: [facility] 04-06-2023 09:23-0400 Heart rate 83 /min Mirian Carias MD Work Phone: [facility] 04-06-2023 09:23-0400 Respiratory rate 16 /min Mirian Carias MD Work Phone: [facility] 04-06-2023 09:23-0400 SaO2% (BldA) [Mass fraction] 96 % Mirian Carias MD Work Phone: [facility] 04-06-2023 09:23-0400 Systolic blood pressure 130 mm[Hg] Mirian Carias MD Work Phone: [facility] 10-04-2022 09:11-0400 Diastolic blood pressure 94 mm[Hg] Mirian Carias MD Work Phone: [facility] 10-04-2022 09:11-0400 Systolic blood pressure 147 mm[Hg] Mirian Carias MD Work Phone: [facility] 10-04-2022 08:23-0400 Body height 172.7 cm Mirian Carias MD Work Phone: [facility] 10-04-2022 08:23-0400 Body temperature 97.5 [degF] Mirian Carias MD Work Phone: [facility] 10-04-2022 08:23-0400 Body weight 107.5 kg Mirian Carias MD Work Phone: [facility] 10-04-2022 08:23-0400 Heart rate 85 /min Mirian Carias MD Work Phone: [facility] 10-04-2022 08:23-0400 Respiratory rate 19 /min Mirian Carias MD Work Phone: [facility] 10-04-2022 08:23-0400 SaO2% (BldA) [Mass fraction] 97 % Mirian Carisa MD Work Phone: [facility] 06-16-2022 13:11-0500 Diastolic blood pressure 95 mm[Hg] [facility] [employer] 06-16-2022 13:11-0500 Heart rate 72 /min Robin Johansen MD [facility] [employer] 06-16-2022 13:11-0500 Respiratory rate 18 /min Robin Johansen MD Work [facility] [employer] 06-16-2022 13:11-0500 SaO2% (BldA) [Mass fraction] 95 % Robin Johansen MD [facility] 06-16-2022 13:11-0500 Systolic blood pressure 155 mm[Hg] Robin Johansen MD [facility] 06-16-2022 12:56-0500 Body temperature 97.5 [degF] Robin Johansen MD Work Phone: [facility] [employer] 06-16-2022 11:26-0500 Body height 180.3 cm Robin Johansen MD Work Phone[facility] 06-16-2022 11:26-0500 Body mass index (BMI) [Ratio] 29.99 kg/m2 Robin Johansen MD Work Phone: [facility] [employer] 06-16-2022 11:26-0500 Body weight 97.52 kg Robin Johansen MD [facility] 03-31-2022 13:08-0400 Diastolic blood pressure 88 mm[Hg] Robin Johansen MD [facility] 03-31-2022 13:08-0400 Heart rate 77 /min Robin Johansen MD [facility] 03-31-2022 13:08-0400 Respiratory rate 16 /min Robin Johansen MD [facility] 03-31-2022 13:08-0400 SaO2% (BldA) [Mass fraction] 96 % Robin Johansen MD [facility] 03-31-2022 13:08-0400 Systolic blood pressure 135 mm[Hg] Robin Johansen MD [facility] Phone[facility] 03-31-2022 11:37-0400 Body height 180.3 cm Robin Johansen MD Work Phone[facility] 03-31-2022 11:37-0400 Body mass index (BMI) [Ratio] 29.99 kg/m2 Robin Johansen MD [facility] 03-31-2022 11:37-0400 Body temperature 98.4 [degF] Robin Johansen MD [facility] 03-31-2022 11:37-0400 Body weight 97.52 kg Robin Johansen MD [facility] 12-30-2021 15:16-0400 Body height 180.3 cm Mirian Carias MD Work Phone: [facility] 12-30-2021 15:16-0400 Body weight 102.97 kg Mirian Carias MD Work Phone: [facility] 12-30-2021 15:16-0400 Diastolic blood pressure 89 mm[Hg] Mirian Carias MD Work Phone: [facility] 12-30-2021 15:16-0400 Heart rate 76 /min Mirian Carias MD Work Phone: [facility] 12-30-2021 15:16-0400 SaO2% (BldA) [Mass fraction] 96 % Mirian Carias MD Work Phone: [facility] 12-30-2021 15:16-0400 Systolic blood pressure 140 mm[Hg] Mirian Carias MD Work Phone: [facility] Encounters Encounter Date Encounter Type Care Provider Facility Start: 04-13-2023 End: 04-14-2023 [facility] Facility:[facility] Start: 04-06-2023 End: 04-06-[address] [facility] Facility:[facility] Start: 04-06-2023 End: 04-06-2023 Patient encounter procedure Mirian Carias MD Work Phone: Endocrinology Procedures Date Procedure Procedure Detail Performing Clinician Start: 01-21-2020 Adult depression screening assessment Mirian Carias MD Work Phone: Start: 09-25-2018 Lipid 1996 panel - S edison or Plasma Mirian Carias MD Work Phone: Plan of Treatment Date Care Activity Detail Author Start: 10-04-2025 Diabetes Screening Diabetes Screenin g [facility] Start: 01-03-2025 DIABETES SCREEN DIABETES SCREEN [facility] Start: 07-02-2024 DIABETES SCREEN DIABETES SCREEN [facility] Start: 09-26-2023 Lipid 1996 panel - Serum or Plasma Lipid Screening [facility] Start: 09-26-2023 LIPID SCREEN LIPID SCREEN [facility] Start: 04-06-2023 End: 06-06-2023 Hemoglobin A1c in Blood HGB A1C Lab Routine Prediabetes Expected: 04/06/2023, Expires: 06/06/2023 [facility] Work Phone: Immunizations Immunization Date Immunization Notes Care Provider Fa socoty 04-27-2020 pneumococcal conjuga te vaccine, 13 valent Mirian Carias MD Work Phone: [facility] 03-30-2020 influenza virus vacc ine, unspecified formulation Mirian Carias MD Work Phone: [facility] 04-16-2019 influenza, seasonal, injectable Mirian Carias MD Work Phone: [facility] Payers Date Payer Category Payer Medicare MMO MEDICARE MMO MEDADVANTAGE O [id number] 2018-Present [phone] [address] [place] [id number] O [id number] 2018 Medicare MMO MEDICARE MMO MEDADVANTAGE O [id number] 2018-Present [phone] [address] [place] [id number] O [id number] 2018 Unknown [id number] 1999 Unknown ESIS ESIS [id number] 1999-Present [address] [place] [address] [id number] Unknown [id number] Social History Date Type Detail Facility Start: 09-03-2016 End: 04-06-2023 Tobacco smoking status NHIS Never smoked tobacco [facility] Start: 09-03-2016 End: 04-06-2023 Tobacco use and exposure Smokeless tobacco non-user [facility] Start: 12-30-2021 End: 04-06-2023 Alcohol intake Current non-drinker of alcohol (finding) [facility] Start: 01-21-2020 History SDOH Alcohol Frequency 1 [facility] Start: 01-21-2020 History SDOH Physica l Activity MPS 0 [facility] Start: 01-21-2020 History SDOH Stress 2 [facility] Start: 01-21-2020 History SDOH Financial 4 [facility] Start: 01-21-2020 Education 12 [facility] Start: 1955 Sex Assigned At Not on file [facility] Start: 12-20-2021 End: 06-16-2022 Exposure to SARS-CoV-2 (event) Not sure [facility] Start: 01-21-2020 End: 04-06-2023 History of Social function [facility] Start: 01-21-2020 End: 04-06-2023 Alcohol Use Disorder Identification Test - Consumption [AUDIT-C] [facility] How often to you hav e a drink containing alcohol? Never [facility] Average Number of Drinks Not on file [facility] How hard is it for y ou to pay for the very basics like food, housing, medical care, and heating Not very hard [facility] Do you feel stress - tense, restless, nervous, or anxious, or unable to sleep at night because your mind is troubled all the time - these days [OSQ] Only a little [facility] (I/We) worried wheth er (my/our) food would run out before (I/we) got money to buy more. Never true [facility] Clinical Notes 12-30-2021 to 04-06-2023 Patient InstructionsMirian Carias MD - 04/06/2023 9:34 AM EDTPatient InstructionsMirian Carias MD - 10/04/2022 8:39 AM Umesh Gonzalez RN - 06/16/2022 1:27 PM ESTDischarge Instructions Note Date & Type Note Facility 04-06-2023 Note HNO ID: [id number] Author: Mirian Carias MD Service: ? Author Type: Physician Type: Progress Notes Filed: 04/06/2023 9:58 AM Note Text: Subjective: Jimena Simms is a 67 year old male here for hypothyroidism, vitamin D deficiency and pre-diabetes follow up. Interval history: Steroid injection in neck Reports increased stressors - his best friend is sick Previously, he had Graves disease, which has been in remission. History in brief, initially he had hypothyroidism and took Synthroid for few years Hyperthyroidism was diagnosed 3 years ago when he lost weight and developed palpitations At that time, he was started on methimazole Subsequently, he became hypothyroid and methimazole was discontinued in Feb 2017. In September 2018, his TSH was 5 and was started on Levothyroxine at that time Current treatment: Levothyroxine 50 mcg daily He ran out of levothyroxine 50 mcg a week ago, so he has been taking 25 mcg daily Previous treatment: Levothyroxine 25 mcg daily He takes protonix at night General symptoms: Fatigue: yes Energy level varies Weight change: weight loss of 7 lbs since last visit Change in bowel habits: No Temperature intolerance: No Pre-diabetes- last A1c was 5.9 He does more activity during summer time Vitamin D deficiency: He takes vitamin D 5000 IU intermittently REVIEW OF SYSTEMS: Answers submitted by the patient for this visit: Core Review of Systems (Submitted on 04/06/2023) Fever : No Night Sweats: No Recent Unintentional Weight Change: No Nasal Congestion: No Hearing Loss: Yes Vision Disturbance: No A Cough: No Difficulty Breathing?: No Chest Pain: No Irregular Heart Beat: No Leg Swelling: No Nausea: No Diarrhea: No Black Tarry Stools: No Difficulty Urinating?: No Awaken at Night More Than Once to Urinate?: No Joint Pain or Stiffness: Yes Muscle Aches: Yes Leg or Foot Discomfort at Night?: No A Rash: No Dizziness: No Headaches: Yes Memory Loss: No Seizures: No ALLERGIES: ALLERGIES Allergen Reactions Phenergan [Prometha* Mental Status Change MEDICATIONS: Current Outpatient Medications on File Prior to Visit Medication Sig loratadine (ALAVERT ORAL) Take by mouth. levothyroxine (SYNTHROID) 50 mcg tablet Take 1 tablet by mouth once daily. pantoprazole DR (PROTONIX) 40 mg tablet Take 1 tablet by mouth once daily. Take on empty stomach, 1/2 hr before meal. fluticasone (FLONASE) 50 mcg/actuation nasal spray USE TWO SPRAYS IN EACH NOSTRIL ONCE DAILY. RINSE MOUTH AFTER USE tiZANidine (ZANAFLEX) 2 mg tablet Take 2 mg by mouth once daily. oxyCODONE-acetaminophen (PERCOCET) 5-325 mg tablet Take 1 tablet by mouth every 4 hours as needed. PREDNISONE ORAL Take 1 tablet by mouth as needed. Lactobacillus acidophilus (FLORAJEN) 460 mg (20 billion cell) cap Take 460 mg by mouth once daily. meloxicam (MOBIC) 15 mg tablet Take 1 tablet by mouth once daily. With food. albuterol HFA (VENTOLIN HFA) 90 mcg/actuation inhaler Inhale 2 Puffs as instructed every 4 hours as needed for Wheezing/Shortness of Breath. atorvastatin (LIPITOR) 20 mg tablet Take 1 tablet by mouth daily at bedtime. For cholesterol. LORATADINE (CLARITIN ORAL) Take 1 tablet by mouth once daily. (Patient not taking: Reported on 10/04/2022) No current facility-administered medications on file prior to visit. PAST MEDICAL HISTORY: PAST MEDICAL HISTORY Diagnosis Date Allergic rhinitis Appendicitis Chronic back pain 2/2 injury at work for [employer]. Seeing Dr. Johansen pain management DDD (degenerative disc disease), cervical DDD (degenerative disc disease), lumbar Environmental allergies GERD (gastroesophageal reflux disease) Graves disease seeing Dr. Carias Hyperlipidemia Hypothyroidism Obesity (BMI 35.0-39.9 without comorbidity) Prediabetes Status post insertion of spinal cord stimulator PHYSICAL EXAM: BP 130/81 Pulse 83 Resp 16 Ht 172.7 cm (5' 8 ) Wt 104.3 kg (230 lb) SpO2 96% BMI 34.97 kg/m? General:Alert and oriented x3, no acute distress Eyes: Anicteric sclera. Pupils are equally round. Extraocular motions intact Thyroid: normal size, normal texture, no palpable nodules Lungs: Breathing unlabored, clear to auscultation. No wheezing Heart regular rate and rhythm, no murmer Abdomen:Normal abdominal sounds, non tender to palpation Neuro: Gait normal. Sensation grossly intact. No focal findings Musculoskeletal: Muscular strength intact, No joint swelling Extremities without edema, no deformities Skin: no rashes/ erythema LAB: Latest Reference Range AND Units 01/03/22 07:22 10/04/22 09:25 Hemoglobin A1C 4.3 - 5.6 % 6.2 (H) 5.9 (H) Estimated Average Glucose mg/dL 131 123 Free T4 0.9 - 1.7 ng/dL 1.2 TSH 0.270 - 4.200 mIU/L 2.690 2.950 Vitamin D 25 Hydroxy 31.0 - 80.0 ng/mL 38.5 ASSESSMENT/PLAN: 1) Hypothyroidism Clinically, he appears euthyroid Restart levothyroxine 50 mcg daily Updat (more content not included)... [facility] 04-06-2023 Instructions Mirian Carias MD - 04/06/2023 9:47 AM EDT Restart levothyroxine 50 mcg daily Get labs drawn in 7-10 days I will send you a message in my chart once the lab results become available Follow up in 6 months documented in this encounter [facility] 04-06-2023 History of Presen t illness Narrative Subjective: Jimena Simms is a 67 year old male here for hypothyroidism, vitamin D deficiency and pre-diabetes follow up. Interval history: Steroid injection in neck Reports increased stressors - his best friend is sick Previously, he had Graves disease, which has been in remission. History in brief, initially he had hypothyroidism and took Synthroid for few years Hyperthyroidism was diagnosed 3 years ago when he lost weight and developed palpitations At that time, he was started on methimazole Subsequently, he became hypothyroid and methimazole was discontinued in Feb 2017. In September 2018, his TSH was 5 and was started on Levothyroxine at that time Current treatment: Levothyroxine 50 mcg daily He ran out of levothyroxine 50 mcg a week ago, so he has been taking 25 mcg daily Previous treatment: Levothyroxine 25 mcg daily He takes protonix at night General symptoms: Fatigue: yes Energy level varies Weight change: weight loss of 7 lbs since last visit Change in bowel habits: No Temperature intolerance: No Pre-diabetes- last A1c was 5.9 He does more activity during summer time Vitamin D deficiency: He takes vitamin D 5000 IU intermittently REVIEW OF SYSTEMS: Answers submitted by the patient for this visit: Core Review of Systems (Submitted on 04/06/2023) Fever : No Night Sweats: No Recent Unintentional Weight Change: No Nasal Congestion: No Hearing Loss: Yes Vision Disturbance: No A Cough: No Difficulty Breathing?: No Chest Pain: No Irregular Heart Beat: No Leg Swelling: No Nausea: No Diarrhea: No Black Tarry Stools: No Difficulty Urinating?: No Awaken at Night More Than Once to Urinate?: No Joint Pain or Stiffness: Yes Muscle Aches: Yes Leg or Foot Discomfort at Night?: No A Rash: No Dizziness: No Headaches: Yes Memory Loss: No Seizures: No ALLERGIES: ALLERGIES Allergen Reactions Phenergan [Prometha* Mental Status Change MEDICATIONS: Current Outpatient Medications on File Prior to Visit Medication Sig loratadine (ALAVERT ORAL) Take by mouth. levothyroxine (SYNTHROID) 50 mcg tablet Take 1 tablet by mouth once daily. pantoprazole DR (PROTONIX) 40 mg tablet Take 1 tablet by mouth once daily. Take on empty stomach, 1/2 hr before meal. fluticasone (FLONASE) 50 mcg/actuation nasal spray USE TWO SPRAYS IN EACH NOSTRIL ONCE DAILY. RINSE MOUTH AFTER USE tiZANidine (ZANAFLEX) 2 mg tablet Take 2 mg by mouth once daily. oxyCODONE-acetaminophen (PERCOCET) 5-325 mg tablet Take 1 tablet by mouth every 4 hours as needed. PREDNISONE ORAL Take 1 tablet by mouth as needed. Lactobacillus acidophilus (FLORAJEN) 460 mg (20 billion cell) cap Take 460 mg by mouth once daily. meloxicam (MOBIC) 15 mg tablet Take 1 tablet by mouth once daily. With food. albuterol HFA (VENTOLIN HFA) 90 mcg/actuation inhaler Inhale 2 Puffs as instructed every 4 hours as needed for Wheezing/Shortness of Breath. atorvastatin (LIPITOR) 20 mg tablet Take 1 tablet by mouth daily at bedtime. For cholesterol. LORATADINE (CLARITIN ORAL) Take 1 tablet by mouth once daily. (Patient not taking: Reported on 10/04/2022) No current facility-administered medications on file prior to visit. PAST MEDICAL HISTORY: PAST MEDICAL HISTORY Diagnosis Date Allergic rhinitis Appendicitis Chronic back pain 2/2 injury at work for [employer]. Seeing Dr. Johansen pain management DDD (degenerative disc disease), cervical DDD (degenerative disc disease), lumbar Environmental allergies GERD (gastroesophageal reflux disease) Graves disease seeing Dr. Carias Hyperlipidemia Hypothyroidism Obesity (BMI 35.0-39.9 without comorbidity) Prediabetes Status post insertion of spinal cord stimulator PHYSICAL EXAM: BP 130/81 Pulse 83 Resp 16 Ht 172.7 cm (5' 8 ) Wt 104.3 kg (230 lb) SpO2 96% BMI 34.97 kg/m General:Alert and oriented x3, no acute distress Eyes: Anicteric sclera. Pupils are equally round. Extraocular motions intact Thyroid: normal size, normal texture, no palpable nodules Lungs: Breathing unlabored, clear to auscultation. No wheezing Heart regular rate and rhythm, no murmer Abdomen:Normal abdominal sounds, non tender to palpation Neuro: Gait normal. Sensation grossly intact. No focal findings Musculoskeletal: Muscular strength intact, No joint swelling Extremities without edema, no deformities Skin: no rashes/ erythema LAB: Latest Reference Range & Units 01/03/22 07:22 10/04/22 09:25 Hemoglobin A1C 4.3 - 5.6 % 6.2 (H) 5.9 (H) Estimated Average Glucose mg/dL 131 123 Free T4 0.9 - 1.7 ng/dL 1.2 TSH 0.270 - 4.200 mIU/L 2.690 2.950 Vitamin D 25 Hydroxy 31.0 - 80.0 ng/mL 38.5 ASSESSMENT/PLAN: 1) Hypothyroidism Clinically, he appears euthyroid Restart levothyroxine 50 mcg daily Update thyroid function function in 7-10 days 2) Pre-diabetes: 3) Obesity/BMI 34 Last A1c was 5.9 Patient has been successful losing weight since last visit Update an A1c 4) Vitamin D deficiency Vitamin D level was optimal Continue 5000 international unit(s) daily I will send him a message in my chart once the lab results become available Follow up in 6 months Mirian Carias MD documented in this encounter [facility] 10-04-2022 Note HNO ID: [id number] Author: Mirian Carias MD Service: ? Author Type: Physician Type: Progress Notes Filed: 10/04/2022 9:37 AM Note Text: Subjective: Jimena Simms is a 67 year old male here for hypothyroidism, vitamin D deficiency and pre-diabetes follow up. Interval history: He has DDD in C spine He received an epidural injection. Patient reports weight gain and intermittent fluctuations in his BP. Patient also received 2 epidural injection in his back last year Previously, he had Graves disease, which has been in remission. History in brief, initially he had hypothyroidism and took Synthroid for few years Hyperthyroidism was diagnosed 3 years ago when he lost weight and developed palpitations At that time, he was started on methimazole Subsequently, he became hypothyroid and methimazole was discontinued in Feb 2017. In September 2018, his TSH was 5 and was started on Levothyroxine at that time Current treatment: Levothyroxine 50 mcg daily He takes vitamin D along with Levothyroxine Previous treatment: Levothyroxine 25 mcg daily He takes protonix at night General symptoms: Fatigue: yes Energy level varies Weight change: weight gain of 10 lbs since last visit No changes in eating habits Change in bowel habits: No Temperature intolerance: No Pre-diabetes- last A1c was 6.2 Physical activity decreased during winter time Vitamin D deficiency: He takes vitamin D 5000 IU intermittently BP is elevated today He monitors BP at home No headaches or vision changes REVIEW OF SYSTEMS: Answers submitted by the patient for this visit: Core Review of Systems (Submitted on 09/27/2022) Fever : No Night Sweats: No Recent Unintentional Weight Change: Yes Nasal Congestion: No Hearing Loss: Yes Vision Disturbance: Yes A Cough: No Difficulty Breathing?: No Chest Pain: No Irregular Heart Beat: No Leg Swelling: No Nausea: No Diarrhea: No Black Tarry Stools: No Difficulty Urinating?: No Awaken at Night More Than Once to Urinate?: Yes Joint Pain or Stiffness: Yes Muscle Aches: Yes Leg or Foot Discomfort at Night?: No A Rash: No Dizziness: No Headaches: No Memory Loss: No Seizures: No ALLERGIES: ALLERGIES Allergen Reactions Phenergan [Prometha* Mental Status Change MEDICATIONS: Current Outpatient Medications on File Prior to Visit Medication Sig loratadine (ALAVERT ORAL) Take by mouth. levothyroxine (SYNTHROID) 50 mcg tablet Take 1 tablet by mouth once daily. pantoprazole DR (PROTONIX) 40 mg tablet Take 1 tablet by mouth once daily. Take on empty stomach, 1/2 hr before meal. fluticasone (FLONASE) 50 mcg/actuation nasal spray USE TWO SPRAYS IN EACH NOSTRIL ONCE DAILY. RINSE MOUTH AFTER USE tiZANidine (ZANAFLEX) 2 mg tablet Take 2 mg by mouth once daily. oxyCODONE-acetaminophen (PERCOCET) 5-325 mg tablet Take 1 tablet by mouth every 4 hours as needed. PREDNISONE ORAL Take 1 tablet by mouth as needed. Lactobacillus acidophilus (FLORAJEN) 460 mg (20 billion cell) cap Take 460 mg by mouth once daily. meloxicam (MOBIC) 15 mg tablet Take 1 tablet by mouth once daily. With food. albuterol HFA (VENTOLIN HFA) 90 mcg/actuation inhaler Inhale 2 Puffs as instructed every 4 hours as needed for Wheezing/Shortness of Breath. atorvastatin (LIPITOR) 20 mg tablet Take 1 tablet by mouth daily at bedtime. For cholesterol. LORATADINE (CLARITIN ORAL) Take 1 tablet by mouth once daily. (Patient not taking: Reported on 10/04/2022) No current facility-administered medications on file prior to visit. PAST MEDICAL HISTORY: PAST MEDICAL HISTORY Diagnosis Date Allergic rhinitis Appendicitis Chronic back pain 2/2 injury at work for [employer]. Seeing Dr. Johansen pain management DDD (degenerative disc disease), cervical DDD (degenerative disc disease), lumbar Environmental allergies GERD (gastroesophageal reflux disease) Graves disease seeing Dr. Carias Hyperlipidemia Hypothyroidism Obesity (BMI 35.0-39.9 without comorbidity) Prediabetes Status post insertion of spinal cord stimulator PAST SURGICAL HISTORY Procedure Laterality Date APPENDECTOMY COLONOSCOPY IR RADIO FREQUENCY ABLATION lumbar spine x2 PAST SURGICAL HISTORY OF cervical spine fusion PAST SURGICAL HISTORY OF fusion of L3-L5 PAST SURGICAL HISTORY OF microdiscectomy PAST SURGICAL HISTORY OF Right knee arthroscopy for meniscal tear PAST SURGICAL HISTORY OF ventral hernia repair PAST SURGICAL HISTORY OF sinus surgery S SPINAL CORD STIMULATOR, Social History Tobacco Use Smoking status: Never Smokeless tobacco: Never Substance Use Topics Alcohol use: No Drug use: No PHYSICAL EXAM: BP 142/92 (BP Site: Left Arm, BP Position: Sitting, BP Cuff Size: Extra Large Adult) Pulse 85 Temp 36.4 ?C (97.5 ?F) (Oral) Resp 19 Ht 172.7 cm (5' 8 ) Wt 107.5 kg (237 lb) SpO2 97% BMI 36.04 kg/m? General:Alert and oriented x3, no acute distress (more content not included)... [facility] 10-04-2022 Instructions Mirian Carias MD - 10/04/2022 8:50 AM EDT Get labs drawn. I will send you a message in my chart once the lab results become available Follow up in 6 months documented in this encounter [facility] 10-04-2022 History of Presen t illness Narrative Subjective: Jimena Simms is a 67 year old male here for hypothyroidism, vitamin D deficiency and pre-diabetes follow up. Interval history: He has DDD in C spine He received an epidural injection. Patient reports weight gain and intermittent fluctuations in his BP. Patient also received 2 epidural injection in his back last year Previously, he had Graves disease, which has been in remission. History in brief, initially he had hypothyroidism and took Synthroid for few years Hyperthyroidism was diagnosed 3 years ago when he lost weight and developed palpitations At that time, he was started on methimazole Subsequently, he became hypothyroid and methimazole was discontinued in Feb 2017. In September 2018, his TSH was 5 and was started on Levothyroxine at that time Current treatment: Levothyroxine 50 mcg daily He takes vitamin D along with Levothyroxine Previous treatment: Levothyroxine 25 mcg daily He takes protonix at night General symptoms: Fatigue: yes Energy level varies Weight change: weight gain of 10 lbs since last visit No changes in eating habits Change in bowel habits: No Temperature intolerance: No Pre-diabetes- last A1c was 6.2 Physical activity decreased during winter time Vitamin D deficiency: He takes vitamin D 5000 IU intermittently BP is elevated today He monitors BP at home No headaches or vision changes REVIEW OF SYSTEMS: Answers submitted by the patient for this visit: Core Review of Systems (Submitted on 09/27/2022) Fever : No Night Sweats: No Recent Unintentional Weight Change: Yes Nasal Congestion: No Hearing Loss: Yes Vision Disturbance: Yes A Cough: No Difficulty Breathing?: No Chest Pain: No Irregular Heart Beat: No Leg Swelling: No Nausea: No Diarrhea: No Black Tarry Stools: No Difficulty Urinating?: No Awaken at Night More Than Once to Urinate?: Yes Joint Pain or Stiffness: Yes Muscle Aches: Yes Leg or Foot Discomfort at Night?: No A Rash: No Dizziness: No Headaches: No Memory Loss: No Seizures: No ALLERGIES: ALLERGIES Allergen Reactions Phenergan [Prometha* Mental Status Change MEDICATIONS: Current Outpatient Medications on File Prior to Visit Medication Sig loratadine (ALAVERT ORAL) Take by mouth. levothyroxine (SYNTHROID) 50 mcg tablet Take 1 tablet by mouth once daily. pantoprazole DR (PROTONIX) 40 mg tablet Take 1 tablet by mouth once daily. Take on empty stomach, 1/2 hr before meal. fluticasone (FLONASE) 50 mcg/actuation nasal spray USE TWO SPRAYS IN EACH NOSTRIL ONCE DAILY. RINSE MOUTH AFTER USE tiZANidine (ZANAFLEX) 2 mg tablet Take 2 mg by mouth once daily. oxyCODONE-acetaminophen (PERCOCET) 5-325 mg tablet Take 1 tablet by mouth every 4 hours as needed. PREDNISONE ORAL Take 1 tablet by mouth as needed. Lactobacillus acidophilus (FLORAJEN) 460 mg (20 billion cell) cap Take 460 mg by mouth once daily. meloxicam (MOBIC) 15 mg tablet Take 1 tablet by mouth once daily. With food. albuterol HFA (VENTOLIN HFA) 90 mcg/actuation inhaler Inhale 2 Puffs as instructed every 4 hours as needed for Wheezing/Shortness of Breath. atorvastatin (LIPITOR) 20 mg tablet Take 1 tablet by mouth daily at bedtime. For cholesterol. LORATADINE (CLARITIN ORAL) Take 1 tablet by mouth once daily. (Patient not taking: Reported on 10/04/2022) No current facility-administered medications on file prior to visit. PAST MEDICAL HISTORY: PAST MEDICAL HISTORY Diagnosis Date Allergic rhinitis Appendicitis Chronic back pain 2/2 injury at work for [employer]. Seeing Dr. Johansen pain management DDD (degenerative disc disease), cervical DDD (degenerative disc disease), lumbar Environmental allergies GERD (gastroesophageal reflux disease) Graves disease seeing Dr. Carias Hyperlipidemia Hypothyroidism Obesity (BMI 35.0-39.9 without comorbidity) Prediabetes Status post insertion of spinal cord stimulator PAST SURGICAL HISTORY Procedure Laterality Date APPENDECTOMY COLONOSCOPY IR RADIO FREQUENCY ABLATION lumbar spine x2 PAST SURGICAL HISTORY OF cervical spine fusion PAST SURGICAL HISTORY OF fusion of L3-L5 PAST SURGICAL HISTORY OF microdiscectomy PAST SURGICAL HISTORY OF Right knee arthroscopy for meniscal tear PAST SURGICAL HISTORY OF ventral hernia repair PAST SURGICAL HISTORY OF sinus surgery S SPINAL CORD STIMULATOR, Social History Tobacco Use Smoking status: Never Smokeless tobacco: Never Substance Use Topics Alcohol use: No Drug use: No PHYSICAL EXAM: BP 142/92 (BP Site: Left Arm, BP Position: Sitting, BP Cuff Size: Extra Large Adult) Pulse 85 Temp 36.4 C (97.5 F) (Oral) Resp 19 Ht 172.7 cm (5' 8 ) Wt 107.5 kg (237 lb) SpO2 97% BMI 36.04 kg/m General:Alert and oriented x3, no acute distress Eyes: Anicteric sclera. Pupils are equally round. Extraocular motions intact Thyroid: normal size, normal texture, no palpable nodules Lungs: Breathing unlabored, clear to auscultation. No wheezing Heart regular rate and rhythm, no murmer Abdomen:Normal abdominal sounds, non tender to palpation Neuro: Gait normal. Sensation grossly intact. No focal findings Musculoskeletal: Muscular strength intact, No joint swelling Extremities without edema, no deformities Skin: no rashes/ erythema LAB: Latest Reference Range & Units 07/02/21 12:17 01/03/22 07:22 Hemoglobin A1C 4.3 - 5.6 % 6.1 (H) 6.2 (H) Estimated Average Glucose mg/dL 128 131 Free T4 0.9 - 1.7 ng/dL 1.0 1.2 TSH 0.270 - 4.200 mIU/L 4.930 (H) 2.690 Vitamin D 25 Hydroxy 31.0 - 80.0 ng/mL 40.8 ASSESSMENT/PLAN: 1) Hypothyroidism Clinically, he appears euthyroid Update thyroid function function today Then will adjust levothyroxine dose accordingly I educated the patient on proper administration of this medication which includes taking it on an empty stomach and alteast 2 hour apart from Calcium, iron and PPIs. Recommended him to take vitamin D in the evening 2) Pre-diabetes: 3) Obesity/BMI 36 Last A1c was 6.2 Weight gain since last visit- this is likely due to steroids Update an A1c Will consider starting metformin if A1c continues to trend up 4) Vitamin D deficiency Vitamin D level was optimal Continue 5000 international unit(s) daily 5) Elevated BP: 6) Snoring Initial DBP was elevated Repeat BP was unchanged He will continue to monitor BP at home Suggested him to talk to PCP regarding a sleep study I will send him a message in my chart once the lab results become available Follow up in 6 months Mirian Carias MD documented in this encounter [facility] 06-16-2022 History of Presen t illness Narrative DISCHARGE INSTRUCTIONS 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 VERBALIZED UNDERSTANDING OF INSTRUCTIONS AND WRITTEN INSTRUCTIONS GIVEN. DISCHARGED PER WHEELCHAIR. ASSESSMENT UNCHANGED EXCEPT NOTED. Pt arrived to PACU via stretcher. Report received from Cristina DELUCA. Vitals stable. Pt denies pain. Injection site - no bleeding noted. Will continue to monitor. Patient is able to demonstrate the ability to move from a reclining position to an upright position within the recliner. Pt checked in for procedure. IV started. 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 Will continue to monitor. documented in this encounter [facility] Work Phone: 06-16-2022 Hospital Discharg e instructions Jessica Jain RN - 06/16/2022 12:09 PM EST [facility] [phone] Post Pain Management Injection PATIENT INSTRUCTIONS: -Resume Normal Diet -Other ACTIVITY: -No driving or operating machinery for 8 hours post procedure without sedation and 24 hours with sedation. If you are seen driving during this time the proper authorities will be notified. -Do not stay alone for 4-6 hours after the procedure. -If you have had IV sedation, do not sign legal documents, make any major decisions, or be involved in work decisions for the remainder of the day. -May shower or bathe. -Resume normal activity when full movement/sensation has returned in extremities. 3) SITE CARE: -Observe puncture site for signs of infection (redness, warmth swelling, drainage with a foul odor, fever or increased tenderness). 4) EXPECTED SIDE EFFECTS: -Numbness/tingling/weakness in extremities, if this lasts more than [address] Johansen. -Muscle stiffness, soreness at puncture site (soreness may last 2-4 days). DIABETIC PATIENTS ONLY: -Increased glucose levels in all diabetic patients who have received a steroid injection. -Monitor blood sugars frequently for the first 5 days following procedure. -Adjust medication accordingly. 6) TO REACH DR. JOHANSEN: Call [phone] ADDITIONAL INSTRUCTIONS: Follow-up as scheduled or call for appointment if not already done. Patients taking Coumadin may resume taking as before the procedure. documented [facility] this encounter [facility] 03-31-[facility] History of Presen t illness Narrative Discharge instructions given to pt and verbalized understanding, states pain is at a tolerable level, no numbness or weakness noted,vitals stable, pt wheeled out to car without complications Pt arrived to PACU,A&O,no c/o pain and/or numbness or tingling, vitals stable, site unremarkable Patient was able to demonstrate the ability to move from a reclining position to an upright position within the recliner. documented in this encounter [facility]: 03-31-2022 Hospital Discharg e instructions Hyacinth Love RN - 03/31/2022 12:59 PM EDT [facility] [phone] Post Pain Management Injection PATIENT INSTRUCTIONS: -Resume Normal Diet -Other ACTIVITY: -No driving or operating machinery for 8 hours post procedure without sedation and 24 hours with sedation. If you are seen driving during this time the proper authorities will be notified. -Do not stay alone for 4-6 hours after the procedure. -If you have had IV sedation, do not sign legal documents, make any major decisions, or be involved in work decisions for the remainder of the day. -May shower or bathe. -Resume normal activity when full movement/sensation has returned in extremities. 3) SITE CARE: -Observe puncture site for signs of infection (redness, warmth swelling, drainage with a foul odor, fever or increased tenderness). 4) EXPECTED SIDE EFFECTS: -Numbness/tingling/weakness in extremities, if this lasts more than [address] Johansen. -Muscle stiffness, soreness at puncture site (soreness may last 2-4 days). DIABETIC PATIENTS ONLY: -Increased glucose levels in all diabetic patients who have received a steroid injection. -Monitor blood sugars frequently for the first 5 days following procedure. -Adjust medication accordingly. 6) TO REACH DR. JOHANSEN: Call [phone] ADDITIONAL INSTRUCTIONS: Follow-up as scheduled or call for appointment if not already done. Patients taking Coumadin may resume taking as before the procedure. documented in this encounter [employer] Phone: 12-30-2021 Instructions Mirian Carias MD - 12/30/2021 3:38 PM EDT Get labs drawn I will send you a message in my chart once the lab results become available Follow up to be determined based on the results documented in this encounter [facility] 12-30-2021 History of Presen t illness Narrative Subjective: Jimena Simms is a 66 year old male here for hypothyroidism, vitamin D deficiency and pre-diabetes follow up. Interval history: No new health issues Previously, he had Graves disease, which has been in remission. History in brief, initially he had hypothyroidism and took Synthroid for few years Hyperthyroidism was diagnosed 3 years ago when he lost weight and developed palpitations At that time, he was started on methimazole Subsequently, he became hypothyroid and methimazole was discontinued in Feb 2017. In September 2018, his TSH was 5 and was started on Levothyroxine at that time Current treatment: Levothyroxine 50 mcg daily Previous treatment: Levothyroxine 25 mcg daily He takes protonix at night General symptoms: Fatigue: yes Energy level varies Weight change: stable Appetite change: No Change in bowel habits: No Temperature intolerance: No Pre-diabetes- last A1c was 6.1 Continues to be physical active in the house Vitamin D deficiency: He takes vitamin D 5000 IU intermittently REVIEW OF SYSTEMS: ALLERGIES: ALLERGIES Allergen Reactions Phenergan [Prometha* Mental Status Change MEDICATIONS: Current Outpatient Medications on File Prior to Visit Medication Sig levothyroxine (SYNTHROID) 50 mcg tablet Take 1 tablet by mouth once daily. pantoprazole DR (PROTONIX) 40 mg tablet Take 1 tablet by mouth once daily. Take on empty stomach, 1/2 hr before meal. fluticasone (FLONASE) 50 mcg/actuation nasal spray USE TWO SPRAYS IN EACH NOSTRIL ONCE DAILY. RINSE MOUTH AFTER USE LORATADINE (CLARITIN ORAL) Take 1 tablet by mouth once daily. tiZANidine (ZANAFLEX) 2 mg tablet Take 2 mg by mouth once daily. oxyCODONE-acetaminophen (PERCOCET) 5-325 mg tablet Take 1 tablet by mouth every 4 hours as needed. PREDNISONE ORAL Take 1 tablet by mouth as needed. Lactobacillus acidophilus (FLORAJEN) 460 mg (20 billion cell) cap Take 460 mg by mouth once daily. meloxicam (MOBIC) 15 mg tablet Take 1 tablet by mouth once daily. With food. albuterol HFA (VENTOLIN HFA) 90 mcg/actuation inhaler Inhale 2 Puffs as instructed every 4 hours as needed for Wheezing/Shortness of Breath. atorvastatin (LIPITOR) 20 mg tablet Take 1 tablet by mouth daily at bedtime. For cholesterol. No current facility-administered medications on file prior to visit. PAST MEDICAL HISTORY: PAST MEDICAL HISTORY Diagnosis Date Allergic rhinitis Appendicitis Chronic back pain 2/2 injury at work for [employer]. Seeing Dr. Johansen pain management DDD (degenerative disc disease), cervical DDD (degenerative disc disease), lumbar Environmental allergies GERD (gastroesophageal reflux disease) Graves disease seeing Dr. Carias Hyperlipidemia Hypothyroidism Obesity (BMI 35.0-39.9 without comorbidity) Prediabetes Status post insertion of spinal cord stimulator PHYSICAL EXAM: BP 140/89 Pulse 76 Ht 180.3 cm (5' 11 ) Wt 103 kg (227 lb) SpO2 96% BMI 31.66 kg/m General:Alert and oriented x3, no acute distress Eyes: Anicteric sclera. Pupils are equally round. Extraocular motions intact Thyroid: normal size, normal texture, no palpable nodules Lungs: Breathing unlabored, clear to auscultation. No wheezing Heart regular rate and rhythm, no murmer Abdomen:Normal abdominal sounds, non tender to palpation Neuro: Gait normal. Sensation grossly intact. No focal findings Musculoskeletal: Muscular strength intact, No joint swelling Extremities without edema, no deformities Skin: no rashes/ erythema LAB: Ref. Range 07/02/2021 12:17 Hemoglobin A1C Latest Ref Range: 4.3 - 5.6 % 6.1 (H) Estimated Average Glucose Latest Units: mg/dL 128 Free T4 Latest Ref Range: 0.9 - 1.7 ng/dL 1.0 TSH Latest Ref Range: 0.270 - 4.200 uU/mL 4.930 (H) Vitamin D 25 Hydroxy Latest Ref Range: 31.0 - 80.0 ng/mL 40.8 ASSESSMENT/PLAN: 1) Hypothyroidism Clinically he appears euthyroid Update thyroid function function today Then will adjust levothyroxine dose accordingly I educated the patient on proper administration of this medication which includes taking it on an empty stomach and alteast 2 hour apart from Calcium, iron and PPIs. 2) Pre-diabetes: 3) Obesity/BMI 31 Last A1c was 6.1 Previously, he has been successful losing weight loss Update an A1c Will consider starting metformin if A1c continues to trend up 4) Vitamin D deficiency Vitamin D level was optimal Continue 5000 international unit(s) daily I will send him a message in my chart once the lab results become available Follow up to be determined based on lab results Mirian Carias MD 12/30/21 documented in this encounter [facility] Diagnosis Lumbar radiculopathy Thoracic or lumbosacral neuritis or radiculitis, unspecified documented in this encounter [employer] Phone: evaluation note* Diagnosis Hypothyroidism, unspecified type- Primary Pre-diabetes Other abnormal glucose Obesity, Class II, BMI 35-39.9 Obesity, unspecified Vitamin D deficiency Unspecified vitamin D deficiency Elevated BP without diagnosis of hypertension Snoring Other dyspnea and respiratory abnormality [facility] Diagnosis Hypothyroidism, unspecified type- Primary Prediabetes Other abnormal glucose Obesity, Class II, BMI 35-39.9 Obesity, unspecified Vitamin D deficiency Unspecified vitamin D deficiency documented in this encounter [facility] Summary Purpose Family History No Family History Records FoundNo Family History Records FoundNo Family History Records FoundNo Family History Records Found Advance Directives No Advanced Directives Records FoundDocuments on File Type Date Recorded 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 DATE CREATED AUTHOR AUTHOR'S ORGANIZ ATION 10/09/2022 [facility] DATE CREATED AUTHOR AUTHOR'S ORGANIZ ATION 04/15/2023 [facility] Source Comments (unrecognize d section and content) In the event this informatio n is protected by the Federal Confidentiality of Alcohol and Drug Abuse Patient Records regulations: The Federal rules restrict any use of the information to criminally investigate or prosecute any alcohol or drug abuse patient.[facility] the event this information is protected by the Federal Confidentiality of Alcohol and Drug Abuse Patient Records regulations: The Federal rules restrict any use of the information to criminally investigate or prosecute any alcohol or drug abuse patient.[facility] the event this information is protected by the Federal Confidentiality of Alcohol and Drug Abuse Patient Records regulations: The Federal rules restrict any use of the information to criminally investigate or prosecute any alcohol or drug abuse patient.[facility] the event this information is protected by the Federal Confidentiality of Alcohol and Drug Abuse Patient Records regulations: The Federal rules restrict any use of the information to criminally investigate or prosecute any alcohol or drug abuse patient.[facility] Reason for Visit (unrecogniz ed section and content) Specialty Diagnoses / Procedures Referred By Contac t Referred To Contact Diagnoses Radiculopathy, lumbar region Radiculopathy, lumbar region Procedures NH NJX AA&/STRD TFRML EPI LUMBAR/SACRAL 1 LEVEL CHG FLUOR NEEDLE/CATH SPINE/PARASPINAL DX/THER Robin Jaramillo MD [address] [facility], [address] [address] Referral ID Status Reason Start Date Expiration Date Visits Re quested Visits Authorized [id number] 03/28/2022 1 1 Specialty Diagnoses / Procedures Referred By Contac t Referred To Contact Diagnoses Lumbar radiculitis Lumbar radiculitis [M54.16] Procedures NH NJX DX/THER SBST INTRLMNR LMBR/SAC W/IMG GDN MIDLINE LUMBAR FIVE SACRAL ONE EPIDURAL STEROID INJECTION SITE CONFIRMED BY FLUOROSCOPY Robin Johansen MD [address] [facility] [address] [place] [id number] [facility] [address] [place] [address] Referral ID Status Reason Start Date Expiration Date Visits Re quested Visits Authorized [id number] 1 1 Reason Comments Thyroid Problem Reason Comments Follow Up Established Patient Care Teams (unrecognized sec tion and content) [employer] Relationship Specialty Start Date End Date Noemi Paayn MD [address] [place], [place] [phone] PCP - General Family Practice 03/28/17 [employer] Relationship Specialty Start Date End Date Noemi Payan MD PCP - General Family Medicine 06/09/17 [employer] Relationship Specialty Start Date End Date Noemi Payan MD PCP - General Family Medicine 06/09/17 [employer] Relationship Specialty Start Date End Date Noemi Payan MD [address] [place], [place] [phone] PCP - General Family Medicine 03/28/17 [employer] [place] Relationship Specialty Start Date End Date Noemi Payan MD [address] [place], [place] [phone] PCP - General Family Medicine 03/28/17 Scheduled Active and Recently Administ ered Medications (unrecognized section and content) PRN Medication Order 03/29/2022 03/30/2022 03/31/2022 betamethasone acetate-betamethasone sodium phosphate (CELESTONE) 9 mg, lidocaine 1 % 2.5 mL (CANCELED) PRN, Starting on Mary Jo 03/31/22 at 1248, Intra-op 1248 (Given - Provid er: Robin Johansen MD) iohexol (OMNIPAQUE 240) IV/PO solution (CANCELED) PRN, Starting on Mary Jo 03/31/22 at 1248, Until Mary Jo 03/31/22 at 1254, Intra-op 1248 (Given - Provid er: Robin Johansen MD) lidocaine PF 1 % injection (CANCELED) PRN, Starting on Mary Jo 03/31/22 at 1248, Until Mary Jo 03/31/22 at 1254, Intra-op 1248 (Given - Provid er: Robin Johansen MD) midazolam (VERSED) injection (CANCELED) PRN, Starting on Mary Jo 03/31/22 at 1245, Until Mary Jo 03/31/22 at 1254, Intra-op 1245 (Given - Provid er: Mireya Deleon RN) No Frequency Medication Order 03/29/2022 03/30/2022 03/31/2022 betamethasone acetate-betamethasone sodium phosphate (CELESTONE) 6 (3-3) MG/ML injection 1 dose, Starting on Mary Jo 03/31/22 at 1241, Until Mon04/01/22 at 0044, Cristina Bernal: cabinet override, Cristina Bernal: cabinet override 1245 (Due) midazolam (VERSED) 2 MG/2ML injection 1 dose, Starting on Mary Jo 03/31/22 at 1204, Until Mon04/01/22 at 0014, Mireya Deleon: cabinet override, Mireya Deleon: cabinet override 1215 (Due) midazolam (VERSED) 2 MG/2ML injection 1 dose, Starting on Mary Jo 03/31/22 at 1253, Until Mon04/01/22 at 0059, Mireya Deleon: cabinet override, Mireya Deleon: cabinet override 1300 (Due) Scheduled Medication Order 06/14/2022 06/15/2022 06/16/2022 lidocaine 1 % (PF) injection 0.1 mL (COMPLETED) 0.1 mL, IntraDERmal, ONCE, 1 dose, On Mary Jo 06/16/22 at 1200 1147 (Given - Provid er: Laura Gonzalez RN) Continuous Medication Order 06/14/2022 06/15/2022 06/16/2022 lactated ringers infusion (CANCELED) IntraVENous, at 50 mL/hr, CONTINUOUS, Starting on Mary Jo 06/16/22 at 1200, Pre-op (day of surgery) 1148 (New Bag - Prov ider: Laura Gonzalez, [phone])[id number] (Stopped - Provider: Laura Gonzalez RN) PRN Medication Order 06/14/2022 06/15/2022 06/16/2022 betamethasone acetate-betamethasone sodium phosphate (CELESTONE) 9 mg, lidocaine 1 % 1.5 mL (CANCELED) PRN, Starting on Mary Jo 06/16/22 at 1253, Intra-op 1253 (Given - Provid er: Robin Johansen MD) iohexol (OMNIPAQUE 240) IV/PO solution (CANCELED) PRN, Starting on Mary Jo 06/16/22 at 1252, Until Mary Jo 06/16/22 at 1256, Intra-op 1252 (Given - Provid er: Robin Johansen MD) lidocaine PF 1 % injection (CANCELED) PRN, Starting on Mary Jo 06/16/22 at 1255, Until Mary Jo 06/16/22 at 1256, Intra-op 1253 (Given - Provid er: Robin Johansen MD) midazolam (VERSED) injection (CANCELED) PRN, Starting on Mary Jo 06/16/22 at 1251, Until Mary Jo 06/16/22 at 1256, Intra-op 1251 (Given - Provid er: Cristina Bernal RN) No Frequency Medication Order 06/14/2022 06/15/2022 06/16/2022 betamethasone acetate-betamethasone sodium phosphate (CELESTONE) 6 (3-3) MG/ML injection 1 dose, Starting on Mary Jo 06/16/22 at 1235, Until Mon06/17/22 at 0044, Isis Bernaline: cabinet override, Cristina Bernal: cabinet override 1245 (Due) midazolam (VERSED) 2 MG/2ML injection 1 dose, Starting on Mary Jo 06/16/22 at 1236, Until Mon06/17/22 at 0044, Edelmira Bernalraine: cabinet override, Edelmira Bernalraine: cabinet override 1245 (Due) FOR RECORDS PERTAINING TO PATIENTS WHO ARE OR HAVE BEEN ENROLLED IN A CHEMICAL DEPENDENCY/SUBSTANCEABUSE PROGRAM, SOME INFORMATION MAY BE OMITTED. This clinical summary was aggregated from multiple sources. Caution should be exercised in using it in the provision of clinical care. This summary normalizes information from multiple sources, and as a consequence, information in this document may materially change the coding, format and clinical context of patient data. In addition, data may be omitted in some cases. CLINICAL DECISIONS SHOULD BE BASED ON THE PRIMARY CLINICAL RECORDS. [email or web address]. provides no warranty or guarantee of the accuracy or completeness of information in this document.
[2023-07-21 18:13] LABS: AST(SGOT) 17 U/L (15-37); Alanine Aminotransfer ALT/SGPT 22 U/L (16-61); Anion Gap 5 (5-15); BUN 20 mg/dL (7-18); BUN/Creat Ratio 17.9 RATIO (10-20); Calcium,Total 9.5 mg/dL (8.5-10.1); Chloride 108 mmol/L (98-107); Cholesterol 208 mg/dL (200); Creatinine, Serum 1.12 mg/dL (0.70-1.30); EST Glomerular Filtration Rate 69 mL/min (>60); Est Glom Filt Rate - Afr Amer 84 mL/min (>60); Glucose 86 mg/dL (74-106); High Density Lipoprotein 44 mg/dL; Potassium 4.3 mmol/L (3.5-5.1); Sodium Level 138 mmol/L (136-145); Triglycerides 186 mg/dL; Very Low Density Lipoprotein 37 mg/dL (5-40)
== END 2023-07-21 23:59 | disposition home or self-care (01) ==
LOC: MFPLAB 15:50
PROVIDERS: PCP Family Medicine; Visit Provider Family Medicine
DX: I10 Essential (primary) hypertension (principal); E78.5 Hyperlipidemia, unspecified
CPT/HCPCS: 36415; 80048; 80061; 84450; 84460

== ENCOUNTER → 2024-04-16 | Outpatient (CLI) | payer MEDICARE, SELFPAY ==
--- OUTSIDE RECORDS SUMMARY | 2024-04-16 11:15 | XMS RPT_ITS | CCD ---
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, No Primary Care Provider Unavailabl e HASARACELI MIRIAN Attending Unavailable NOEMI BLOOD Primary Care Unavailab hector HASARACELI, MIRIAN Referring Unavailable HASAN, MIRIAN Attending Unavailable NOEMI BLOOD Referring Unavailab NOEMI Antoine Primary Care Unavailab hector HASAN, MIRIAN Referring Unavailable PATITO EPPS Attending Unavailable PATITO EPPS Referring Unavailable No Family, Physician Primary Care Unavailable Noemi Blood MD Primary Care Provider Unavailable Primary Care Provider Unavailabl e Allergies Allergy Classification Reported Allergen(s) Allergy Type Date of Onset Reaction(s) Facility (12 sources) promethazine; Translations: [PROMETHAZINE HCL] Drug Allergy 7 Mental Status Change [facility] Repository (3 sources) Amoxicillin; Translations: [AMOXICILLIN] Drug Allergy 3 [facility] (3 sources) Promethazine-Ph enylephrine; Translations: [PROMETHAZINE-P HENYLEPHRINE] Propensity to adverse reactions to drug 3 [facility] Work Phone: Medications Current Medications Medication Drug Class(es) Dates Sig (Normalized) Sig (Original) acetaminophen 325 mg / oxyCODONE hydrochloride 5 mg oral tablet (9 sources) Opioid Agonist Start: 03-03-2022 End: 04-02-2022 take 1 tablet by mouth once at bedtime oxyCODONE-acetaminop hen (PERCOCET) 5-325 MG per tablet Indications: Displacement of lumbar intervertebral disc without myelopathy Take 1 tablet by mouth in the morning and at bedtime for 30 days. 60 tablet 0 03/03/2022 04/02/2022 Active take 1 tablet by duc th every four hours as needed oxyCODONE-acetaminophen (PERCOCET) 5-325 mg tablet Take 1 tablet by mouth every 4 hours as needed. Active Comment on above: Take 1 tablet by duc th every 4 hours as needed. [id number] actuat albuterol 0.09 mg/actuat metered dose inhaler (8 sources) beta2-Adrenergic Agonist Start : 08-24 take 2 puff(s) by inhalation every four hours as needed for wheezing albuterol HFA (VENTOLIN HFA) 90 mcg/actuation inhaler Indications: Bacterial pneumonia Inhale 2 Puffs as instructed every 4 hours as needed for Wheezing/Shortness of Breath. 1 Inhaler 2 08/24/2017 Active Comment on above: Inhale 2 Puffs as in structed every 4 hours as needed for Wheezing/Shortness of Breath. atorvastatin 20 mg oral tablet (8 sources) HMG-CoA Reductase Inhibitor Start : 05-01 take 1 tablet by mouth once daily at bedtime for hyperlipidemia atorvastatin (LIPITOR) 20 mg tablet Indications: Pure hypercholesterolemia Take 1 tablet by mouth daily at bedtime. For cholesterol. 30 tablet 5 05/01/2017 Active Comment on above: Take 1 tablet by duc th daily at bedtime. For cholesterol. cephalexin 250 mg oral capsule (1 source) Cephalosporin Antibacterial Start : 02-27 End: 03-31 cephALEXin (KEFLEX) 250 MG capsule Take 3 capsules TID, start the day before the procedure 90 capsule 0 02/27/2019 03/31/2022 Discontinued (LIST CLEANUP) fluticasone propionate 0.05 mg/actuat metered dose nasal spray (8 sources) Corticosteroid Start : 08-07 take 2 spray(s) by mouth once daily fluticasone (FLONASE) 50 mcg/actuation nasal spray Indications: Chronic rhinitis USE TWO SPRAYS IN EACH NOSTRIL ONCE DAILY. RINSE MOUTH AFTER USE 1 Bottle 11 08/07/2019 Active Comment on above: USE TWO SPRAYS IN EA CH NOSTRIL ONCE DAILY. RINSE MOUTH AFTER USE lactobacillus acidophilus 460 mg oral capsule (8 sources) Start : 02-09 Lactobacillus acidophilus (FLORAJEN) 460 mg (20 billion cell) cap Take 460 mg by mouth once daily. 30 capsule 02/10/2020 Active Comment on above: Take 460 mg by mouth once daily. levothyroxine sodium 0.05 mg oral tablet (12 sources) l-Thyroxine Start : 07-08 End: 03-14 take 1 tablet by mouth once daily levothyroxine (SYNTHROID) 50 mcg tablet Indications: Hypothyroidism, unspecified type Take 1 tablet by mouth once daily. 90 tablet 3 03/15/2024 Active Start: 03-16-2020 End: 04-26-2021 take 1 tablet by mouth once daily levothyroxine (LEVOXYL) 25 mcg tablet Take 1 tablet by mouth once daily. 30 tablet 11 03/16/2020 04/26/2021 Discontinued Comment on above: Take 1 tablet by duc th once daily. lisinopril 10 mg oral tablet (3 sources) Angiotensin Converting Enzyme Inhibitor Start: 10-16-2023 take 1 tablet by mouth once daily lisinopril (ZESTRIL) 10 mg tablet Take 1 tablet by mouth once daily. 10/16/2023 Active Loratadine (15 sources) take 1 tablet by mouth once daily LORATADINE (CLARITIN ORAL) Take 1 tablet by mouth once daily. Active loratadine (ALAV ERT ORAL) Take by mouth. Active loratadine (ALAV ERT ORAL) Take by mouth. 0 Active Loratadine (ALAV ERT PO) Take by mouth 0 Suspended Loratadine (ALAV ERT PO) Take by mouth 0 Active take 1 tablet by mouth once obed y LORATADINE (CLARITIN ORAL) Take 1 tablet by mouth once daily. 0 Active Comment on above: Take 1 tablet by duc th once daily. Take by mouth. meloxicam 15 mg oral tablet (8 sources) Nonsteroidal Anti-inflammatory Drug Start: 08-07-19 20 take 1 tablet by mouth once daily at mealtime meloxicam (MOBIC) 15 mg tablet Indications: Acute pain of left shoulder Take 1 tablet by mouth once daily. With food. 30 tablet 1 08/07/2019 Active Comment on above: Take 1 tablet by duc th once daily. With food. metFORMIN hydrochloride 500 mg oral tablet (4 sources) Biguanide Start: 10-13-19 23 End: 04-02-20 25 take 1 tablet by mouth twice daily at mealtime metFORMIN (GLUCOPHAGE) 500 mg tablet Take 1 tablet by mouth two times a day with meals. 180 tablet 3 04/04/2024 04/02/2025 Active Comment on above: Take 1 tablet by duc th twice daily with meals. pantoprazole 40 mg delayed release oral tablet (10 sources) Proton Pump Inhibitor Start: 03-09-20 21 take 1 tablet by mouth once daily before mealtime pantoprazole DR (PROTONIX) 40 mg tablet Take 1 tablet by mouth once daily. Take on empty stomach, 1/2 hr before meal. 90 tablet 03/09/2021 Active Start: 02-10-2020 End: 05-06-2020 take 1 tablet by mouth once daily before mealtime pantoprazole DR (PROTONIX) 40 mg tablet Take 1 tablet by mouth once daily. Take on empty stomach, 1/2 hr before meal. 90 tablet 02/10/2020 05/06/2020 Discontinued Pantoprazole Sod ium (PROTONIX PO) Take by mouth 0 Suspended Pantoprazole Sod ium (PROTONIX PO) Take by mouth 0 Active Comment on above: Take 1 tablet by duc th once daily. Take on empty stomach, 1/2 hr before meal. predniSONE (7 sources) PREDNISONE ORAL Take 1 tablet by mouth as needed. Active PREDNISONE ORAL Take 1 tablet by mouth as needed. 0 Active Comment on above: Take 1 tablet by duc th as needed. tiZANidine 2 mg oral tablet (9 sources) Central alpha-2 Adrenergic Agonist Start: 2 End: 2 take 1 tablet by mouth once daily tiZANidine (ZANAFLEX) 2 MG tablet Indications: Displacement of lumbar intervertebral disc without myelopathy Take 1 tablet by mouth daily 30 tablet 5 03/03/2022 04/02/2022 Active Comment on above: Take 2 mg by mouth o nce daily. Completed/Discontinued Medications Medication Drug Class(es) Dates Sig [...] hours as needed for Headaches 0 Suspended calcium chloride 0.0014 meq/ml / potassium chloride 0.004 meq/ml / sodium chloride 0.103 meq/ml / sodium lactate 0.028 meq/ml injectable solution (2 sources) Start: 06-16-2022 End: 06-16-2022 lactated ringers infusion Start: 03-31-2022 End: 03-31-2022 lactated ringers infusion 10 ml lidocaine hydrochloride 10 mg/ml injection (2 sources) Antiarrhythmic, Amide Local Anesthetic Start: 06-16-2022 End: 06-16-2022 lidocaine 1 % (PF) injection 0.1 mL Start: 03-31-2022 End: 03-31-2022 lidocaine 1 % (PF) injection 0.1 mL Naproxen (2 sources) Nonsteroidal Anti-inflammatory Drug Naproxen Sodium (ALEVE PO) Take by mouth 0 Suspended Naproxen Sodium (ALEVE PO) Take by mouth 0 Active Problems Active Problems Problem Classification Problem Date Documented Date Episodic/Chronic Disorders of lipid metabolism (8 sources) Mixed hyperlipidemia; Translations: [Mixed hyperlipidemia] Onset: 06-13-2017 06-13-2017 Chronic Esophageal disorders (8 sources) Gastroesophageal reflux disease; Translations: [Gastro-esophageal reflux disease without esophagitis] 03-28-2017 Chronic Essential hypertension (1 source) Essential (primary) hypertension; Translations: [Essential (primary) hypertension] Onset: 04-26-2017 Chronic Nonspecific chest pain (3 sources) Chest pain, unspecified; Translations: [Chest discomfort] Onset: 04-26-2017 04-28-2020 Episodic Nutritional deficiencies (11 sources) Vitamin D deficiency; Translations: [Vitamin D deficiency, unspecified] Onset: 09-11-2019 Chronic Other connective tissue disease (2 sources) Sympathetically maintained pain; Translations: [Neuralgia and neuritis, unspecified] 04-26-2018 Episodic Other lower respiratory disease (1 source) Snoring; Translations: [Snoring] Episodic Other lower respiratory disease (1 source) Dyspnea; Translations: [Shortness of breath] 04-28-2020 Episodic Other nervous system disorders (2 sources) Complex regional pain syndrome; Translations: [Complex regional pain syndrome I, unspecified] 03-09-2017 Chronic Other nutritional; endocrine; and metabolic disorders (4 sources) Obese class I; Translations: [Obesity, unspecified] Onset: 10-17-2023 Chronic Other nutritional; endocrine; and metabolic disorders (8 sources) Body mass index 30+ - obesity; Translations: [Obesity, unspecified] 03-28-2017 Chronic Other nutritional; endocrine; and metabolic disorders (2 sources) Obese class II; Translations: [Obesity, unspecified] Chronic Residual codes; unclassified (8 sources) H/O Spinal surgery; Translations: [Presence of other specified functional implants] 04-13-2017 Chronic Spondylosis; intervertebral disc disorders; other back problems (20 sources) Degeneration of cervical intervertebral disc; Translations: [Other cervical disc degeneration, unspecified cervical region] Onset: 05-16-2013 03-28-2017 Chronic Spondylosis; intervertebral disc disorders; other back problems (13 sources) Chronic back pain ; Translations: [Dorsalgia, unspecified] Onset: 05-16-2013 03-28-2017 Episodic Thyroid disorders (20 sources) Hypothyroidism; Translations: [Hypothyroidism, unspecified] Onset: 02-09-2017 Chronic Unclassified (1 source) Unknown / UNK(Unknown) Onset: 04-26-2017 Past or Other Problems Problem Classification Problem Date Documented Da te Episodic/Chronic Diabetes mellitus without complication (14 sources) Prediabetes; Translations: [Prediabetes] Onset: 10-05-2018 Episodic Malaise and fatigue (8 sources) Fatigue; Translations: [Other fatigue] Onset: 06-13-2017 06-13-2017 Episodic Other circulatory disease (6 sources) Elevated blood-pressure reading without diagnosis of hypertension; Translations: [Elevated blood-pressure reading, without diagnosis of hypertension] Onset: 10-04-2022 Episodic Other lower respiratory disease (1 source) Other forms of dyspnea; Translations: [Other forms of dyspnea] Onset: 04-26-2017 Episodic Other non-traumatic joint disorders (3 sources) Shoulder pain; Translations: [Pain in left shoulder] Onset: 08-20-2019 08-20-2019 Episodic Other non-traumatic joint disorders (5 sources) Pain in left shoulder; Translations: [Pain in joint, shoulder region] Onset: 08-20-2019 08-20-2019 Episodic Results Test Name Value Interpretation Reference Range Facility CT LUMBAR SPINE WO CONTRASTo n 01-10-2024 CT LUMBAR SPINE WO CONTRAST EXAMINATION: CT OF THE LUMBAR SPINE WITHOUT CONTRAST 01/10/2024 TECHNIQUE: CT of the lumbar spine was performed without the administration of intravenous contrast. Multiplanar reformatted images are provided for review. Adjustment of mA and/or kV according to patient size was utilized. Automated exposure control, iterative reconstruction, and/or weight based adjustment of the mA/kV was utilized to reduce the radiation dose to as low as reasonably achievable. COMPARISON: None HISTORY: ORDERING SYSTEM PROVIDED HISTORY: Postlaminectomy syndrome TECHNOLOGIST PROVIDED HISTORY: Reason for exam:->chronic LBP with a history of PLIF L3-5 associated with BLE weakness Reason for Exam: legs are wobbly; low back pain; chronic LBP with a history of PLIF L3-5 associated with BLE weakness, Postlaminectomy syndrome; personal hx of lumbar fusion-L3/L4; spinal stimulator; stem cell therapy FINDINGS: BONES/ALIGNMENT: Straightening of the cervical spine secondary to extensive fusion at the L4-5 and L5 S levels with intervertebral body spacers and bilateral pedicle screws. There is no osseous union across the endplates no lucency around the screws and metal failure. There is associated laminectomy defects facet arthropathy and probable fusion and graft material. DEGENERATIVE CHANGES: Moderate degenerative changes with near complete loss of disc height endplate osteophytes and sclerosis L1-2 L2-3. There is associated facet arthropathy at these levels by suspect moderate to high-grade central stenosis and moderate to high-grade foraminal narrowing. SP L5-S1 level demonstrates relative preservation of disc height. Facet arthropathy. Mild central stenosis a.m. moderate bilateral foraminal narrowing. SOFT TISSUES/RETROPERITONEUM: No paraspinal mass is seen. IMPRESSION: Extensive postsurgical changes L4-5 and L5-S1. Advanced degenerative changes L1-2 and L2-3. Recommend comparison with prior studies to evaluate for interval change. Consider MRI to further characterize if appropriate. Interpreted by: Bijan Gore MD Signed by: Bijan Gore MD 01/10/24 Final result Normal [facility] Comment on above: Order Comment: Reason for exam:->chronic LBP with a history of PLIF L3-5 associated with BLE weakness Reason for exam?->legs are wobbly; low back pain; chronic LBP with a history of PLIF L3-5 associated with BLE weakness, Postlaminectomy syndrome; personal hx of lumbar fusion-L3/L4; spinal stimulator; stem cell therapy CNOVon 10-17-2023 CNOV Office Visit (ENDMED ) SIMMSJIMENA DEL REAL Zara ([id number]) 1955 M Date Time Provider Department 10/17/23 10:00 AM MIRIAN JACKSON During your visit today, we recorded the following information about you: Pulse Blood pressure Weight 74/minute 110/72 100.9 kg Mirian Jackson MD 10/17/2023 10:56 AM Signed Subjective: Jimena Simms is a 68 year old male here for hypothyroidism, vitamin D deficiency and pre-diabetes follow up. Interval history: Started anti-hypertensive medication Previously, he had Graves disease, which has [...] night General symptoms: Fatigue: yes Energy level is fair Weight change No Change in bowel habits: No Temperature intolerance: No Pre-diabetes- last A1c was 5.9 He does more activity during summer time Vitamin D deficiency: He has not been taking vitamin D supplements REVIEW OF SYSTEMS: Answers submitted by the patient for this visit: Core Review of Systems (Submitted on 10/10/2023) Fever : No Night sweats: No Recent unintentional weight change: No Nasal Congestion: No Hearing Loss: Yes Vision Disturbance: No A cough: No Difficulty Breathing?: No Chest pain: No Irregular heartbeat: No Leg Swelling: No Nausea: No Diarrhea: No Black tarry stools: No Difficulty Urinating?: No Awaken at Night More Than Once to Urinate?: Yes Joint pain or stiffness: Yes Muscle aches: Yes Leg or Foot Discomfort at Night?: No A rash: No Dizziness: No Headaches: Yes Memory Loss: No Seizures: No ALLERGIES: ALLERGIES Allergen Reactions Phenergan [Prometha* Mental Status Change MEDICATIONS: Current Outpatient Medications on File Prior to Visit Medication Sig levothyroxine (SYNTHROID) 50 mcg tablet Take 1 tablet by mouth once daily. metFORMIN (GLUCOPHAGE) 500 mg tablet Take 1 tablet by mouth twice daily with meals. loratadine (ALAVERT ORAL) Take by mouth. pantoprazole DR (PROTONIX) 40 mg tablet Take 1 tablet by mouth once daily. Take on empty stomach, 1/2 hr before meal. PREDNISONE ORAL Take 1 tablet by mouth as needed. Lactobacillus acidophilus (FLORAJEN) 460 mg (20 billion cell) cap Take 460 mg by mouth once daily. fluticasone (FLONASE) 50 mcg/actuation nasal spray USE TWO SPRAYS IN EACH NOSTRIL ONCE DAILY. RINSE MOUTH AFTER USE meloxicam (MOBIC) 15 mg tablet Take 1 [...] daily. (Patient not taking: Reported on 10/04/2022) tiZANidine (ZANAFLEX) 2 mg tablet Take 2 mg by mouth once daily. oxyCODONE-acetaminophen (PERCOCET) 5-325 mg tablet Take 1 tablet by mouth every 4 hours as needed. No current facility-administered medications on file prior to visit. PAST MEDICAL HISTORY: PAST MEDICAL HISTORY Diagnosis Date Allergic rhinitis Appendicitis Chronic back pain 2/2 injury at work for [employer]. Seeing Dr. Augustine pain management DDD (degenerative disc disease), cervical DDD (degenerative disc disease), lumbar Environmental allergies GERD (gastroesophageal reflux disease) Graves disease seeing Dr. Jackson Hyperlipidemia Hypothyroidism Obesity (BMI 35.0-39.9 without comorbidity) Prediabetes Status post insertion of spinal cord stimulator PHYSICAL EXAM: BP 110/72 Pulse 74 Wt 100.9 kg (222 lb 7.1 oz) SpO2 96% BMI 33.82 kg/m? General:Alert and oriented x3, no acute distress Eyes: Anicteric sclera. Pupils are equally round. Extraocular motions intact Thyroid: normal size, normal texture, no palpable nodules Lungs: Breathing unlabored, clear to auscultation. No wheezing Heart regular rate and rhythm, no murmer Neuro: Gait normal. Sensation grossly intact. No focal findings Musculoskeletal: Muscular strength intact, No joint swelling Extremities without edema, no deformities Skin: no rashes/ erythema LAB: Latest Reference Range AND Units 10/04/22 09:25 04/13/23 14:49 Hemoglobin A1C 4.3 - 5.6 % 5.9 (H) 6.0 (H) Estimated Average Glucose mg/dL 123 126 Free T4 0.9 - 1.7 ng/dL 1.4 TSH 0.270 - 4.200 mIU/L 2.950 3. (more content not included)... Normal [facility] HbA1c (Bld)on 10-17-2023 Average glucose Estimated from glycated hemoglobin (Bld) [Mass/Vol] 137 mg/dL [facility] Comment on above: eAG: (Estimated average glucose) is a ca lculated value from HgbA1c and is personal banking representative of the average blood glucose level in the last 2-3 month period. HbA1c (Bld) [Mass fraction] 6.4 % High 4.3 - 5.6 % [facility] Comment on above: [place] [employer] guidelines indicate that patients with HgbA1c in the range 5.7-6.4% are at increased risk for development of diabetes, and intervention by lifestyle modification may be beneficial. HgbA1c greater or equal to 6.5% is considered diagnostic of diabetes. Interpretation and review of laboratory results Abnormal [facility] Average glucose Estimated from glycated hemoglobin (Bld) [Mass/Vol] 137 mg/dL [facility] Comment on above: Order Comment: Specimen Type: BLOOD SPEC IMEN Ordering Facility: [facility] Address: [address] [place] [address] Result Comment: eAG: (Estimated average glucose) is a calculated value from HgbA1c and is personal banking representative of the average blood glucose level in the last 2-3 month period. Performed By: #### 5 5454-3 #### [facility] CLIA [id number] [address] [place] [address] [place] HbA1c (Bld) [Mass fraction] 6.4 % High 4.3-5.6 [facility] Comment on above: Order Comment: Specimen Type: BLOOD SPEC IMEN Ordering Facility: [facility] Address: [address] [place] [address] Result Comment: [place] Diabetes Association guidelines indicate that patients with HgbA1c in the range 5.7-6.4% are at increased risk for development of diabetes, and intervention by lifestyle modification may be beneficial. HgbA1c greater or equal to 6.5% is considered diagnostic of diabetes. Performed By: #### 5 5454-3 #### [facility] CLIA [id number] [address] [place] [address] [place] THYROID STIMULATING HORMONEo n 10-17-2023 TSH Qn 2.890 m[IU]/L [facility] TSH Qnon 10-17-2023 Interpretation and review of laboratory results Normal [facility] TSH SerPl-aCncon 10-17-2023 TSH Qn 2.890 m[IU]/L Normal 0.270-4.20 0 [facility] Comment on above: Order Comment: Specimen Type: BLOOD SPEC IMEN Ordering Facility: [facility] Address: [address] [place] [address] Performed By: #### 3 016-3 #### [facility] CLIA [id number] [address] [place] [address] [place] HbA1c (Bld)on 04-13-2023 Average glucose Estimated from glycated hemoglobin (Bld) [Mass/Vol] 126 mg/dL Normal [facility] Comment on above: Order Comment: Specimen Type: BLOOD SPEC IMEN Ordering Facility: [facility] Address: [address] [place] [address] Result Comment: eAG: (Estimated average glucose) is a calculated value from HgbA1c and is personal banking representative of the average blood glucose level in the last 2-3 month period. Performed By: #### 5 5454-3 #### [facility] CLIA [id number] [address] [place] [address] [place] HbA1c (Bld) [Mass fraction] 6.0 % High 4.3-5.6 [facility] Comment on above: Order Comment: Specimen Type: BLOOD SPEC IMEN Ordering Facility: [facility] Address: [address] [place] [address] Result Comment: [place] Diabetes Association guidelines indicate that patients with HgbA1c in the range 5.7-6.4% are at increased risk for development of diabetes, and intervention by lifestyle modification may be beneficial. HgbA1c greater or equal to 6.5% is considered diagnostic of diabetes. Performed By: #### 5 5454-3 #### [facility] CLIA [id number] [address] [place] [address] [place] T4 Free SerPl-mCncon 023 Free T4 [Mass/Vol] 1.4 ng/dL Normal 0.9-1.7 [facility] Comment on above: Order Comment: Specimen Type: BLOOD SPEC IMEN Ordering Facility: [facility] Address: [address] [place] [address] Performed By: #### 3 024-7, 3016-3 #### [facility] CLIA [id number] [address] [place] [address] [place] TSH SerPl-aCncon 04-13-2023 TSH Qn 3.600 m[IU]/L Normal 0.270-4.20 0 [facility] Comment on above: Order Comment: Specimen Type: BLOOD SPEC IMEN Ordering Facility: [facility] Address: [address] [place] [address] Performed By: #### 3 024-7, 3016-3 #### [facility] CLIA [id number] [address] [place] [address] [id number] [id number] [facility] CNOVon 04-06-2023 CNOV Office Visit (ENDMED ) JIMENA SIMMS ([id number]) 1955 M Date Time Provider Department 04/06/23 9:40 AM MIRIAN JACKSON During your visit today, we recorded the following information about you: Pulse Respiration Blood pressure Weight 83/minute 16/minute 130/81 104.3 kg Height 1.727 m Mirian Jackson MD 04/06/2023 9:58 AM Signed Subjective: Jimena Simms is a 67 year [...] back pain 2/2 injury at work for [employer]. Seeing Dr. Augustine pain management DDD (degenerative disc disease), cervical DDD (degenerative disc disease), lumbar Environmental allergies GERD (gastroesophageal reflux disease) Graves disease seeing Dr. Jackson Hyperlipidemia Hypothyroidism Obesity (BMI 35.0-39.9 without comorbidity) [...] A1C 4.3 - 5.6 % 6.2 (H) (more content not included)... Normal [facility] TSH BLDon 10-04-2022 TSH Qn 2.950 m[IU]/L 0.270 - 4.200 mIU/L [facility] XR Chest PA and Lateralon IMPRESSION: No acute radiographic abnormality. Environmental Issues Instructor: LIVE Transcribe Date/Time: Apr 28 2020 11:53A Dictated by : JEFF STANLEY MD This examination was interpreted and the report reviewed and electronically signed by: JEFF STANLEY MD on Apr 28 2020 11:54AM [facility] [[email or web address]] DIVISION OF RADIOLOGY * * *Final Report* * * DATE OF EXAM: Apr 28 2020 9:09AM WOX 5291 - XR CHEST 2V FRONTAL/LAT / PROCEDURE REASON: multiple diagnoses * * * * Physician Interpretation * * * * EXAMINATION: CHEST RADIOGRAPH (2 VIEW FRONTAL & LATERAL) CLINICAL HISTORY: Chest pressure SOB (shortness of breath) MQ: XC2_6 EXAM DATE/TIME: 04/28/2020 9:09 AM COMPARISON: 09/25/2018 RESULT: Lines, tubes, and devices: None. Lungs and pleura: Shallow lung volumes. No consolidation. No lung mass. No pleural effusion. No pneumothorax. Cardiomediastinal silhouette: Normal cardiomediastinal silhouette. Bones and soft tissues: Degenerative changes are present within the thoracic spine. Neurostimulator lead terminating in the mid to lower thoracic spine. DIVISION OF RADIOLOGY Provider, Thalia Gabriel - 04/28/2020 * * *Final Report* * * DATE OF EXAM: Apr 28 2020 9:09AM WOX 5291 - XR CHEST 2V FRONTAL/LAT / PROCEDURE REASON: multiple diagnoses * * * * Physician Interpretation * * * * EXAMINATION: CHEST RADIOGRAPH (2 VIEW FRONTAL & LATERAL) CLINICAL HISTORY: Chest pressure SOB (shortness of breath) MQ: XC2_6 EXAM DATE/TIME: 04/28/2020 9:09 AM COMPARISON: 09/25/2018 RESULT: Lines, tubes, and devices: None. Lungs and pleura: Shallow lung volumes. No consolidation. No lung mass. No pleural effusion. No pneumothorax. Cardiomediastinal silhouette: Normal cardiomediastinal silhouette. Bones and soft tissues: Degenerative changes are present within the thoracic spine. Neurostimulator lead terminating in the mid to lower thoracic spine. IMPRESSION IMPRESSION: No acute radiographic abnormality. Environmental Issues Instructor: PSCB Transcribe Date/Time: Apr 28 2020 11:53A Dictated by : JEFF STANLEY MD This examination was interpreted and the report reviewed and electronically signed by: JEFF STANLEY MD on Apr 28 2020 11:54AM EST [facility] Radiology Study observation (narrative) [facility] XR Chest PA and LateralOrder ed By: [facility] Provider on 04-28-2020 [facility] CNOVon 04-26-2017 CNOV Office Visit (AGCARDWST) ANIBAL SIMMS ([id number]) 1955 MDate Time Provider Vuzrlezxvo88/1/17 10:00 AM CELY ASTORGAWSFran During your visit today, we recorded the following information about you: Pulse Blood pressure Weight 72/minute 133/85 110.1 kgCely Astorga MD 04/26/2017 4:50 PM SignedPERTINENT CARDIAC HISTORYChest painDOMARY ELLENNHL?Grave's diseaseADHERENCE TO GUIDELINESACE-I or ARB for HF with prior LVEFANDlt;40 (NQF 0081) - N/AASA or Plavix for ASHD (NQF 0067) - metBeta suri for ASHD with prior HI or prior LVEFANDlt;40 (NQF 0070) - N/ABeta suri for HF with prior LVEFANDlt;40 (NQF 0083) - N/AACE-I or ARB for ASHD with DM or prior LVEFANDlt;40 (NQF 0066) - N/AStatin therapy for ASHD or FHL or DM - N/ABMI documented and plan if ANDgt;25 (NQF 0421) - lifestyle recommendation formTobacco use screening and referral (NQF 0028) - lifestyle recommendation formRecommendation for whole food, plant based diet - lifestyle recommendation formCLINICAL IMPRESSION/PLAN:Jimena Simms presents with symptoms that are suspicious for LV dysfunction,ischemia, or arrhythmia. I've advised him to continue his current medicationwhich now includes propranolol. He will add aspirin 81 milligrams daily and Ihave given him a prescription for nitroglycerin with instructions in its use.I've asked him to go to emergency department for pain that is unrelieved orassociated with nausea, diaphoresis or shortness of breath. If his symptomsbecome unstable, we will proceed directly with angiography.Lexiscan nuclear stress test will be carried out in the near future. He willhave an echocardiogram for assessment of valvular disease and LV function. Iencouraged him to have his labs done today.I will see him in one month or as needed.Thank you for asking me to see and make recommendations on Jimena Simms.This report is available to you in the shared medical record.Written and verbal health teaching given to patient, patient verbalizesunderstanding and agrees with treatment plan.This note was generated using [employer] voice recognition system, and there may besome incorrect words, spellings, and punctuation that were not noted inchecking the note before saving.DIAGNOSIS FOR VISIT:Chest painHISTORY OF PRESENT ILLNESSMichael D Simms is a 61-year-old gentleman who is seen at the request of , for recommendations regarding several month history of intermittentchest pressure, dyspnea, exercise intolerance, and occasional diaphoresis.He reports that he has had intermittent pressure in the chest which can occursometimes at rest but is typically worsened by exertion. These episodes canlast from minutes to hours. They're sometimes associated with diaphoresis.He has noted that he is more short of breath with minimal activity. Bloodpressure has been more labile. He has noticed decreased exercise tolerance. Hehas a previous spinal injury but continues to walk.He has Graves' disease and was placed on a beta suri when this diagnosis wasmade as his heart rate was high and it was pounding. He has noticed someincreased heart rate recently, but denies a sensation of palpitations. He wasrecently taken off Tapazole and is awaiting determination of whether he willrequire supplementation.He denies TIAs, amaurosis, claudication.Risk factors for coronary disease include hypertension and possiblehyperlipidemia.ALLERGIES:A LLERGIESAllergen Reactions- Phenergan [Prometha* Mental Status ChangeCURRENT OUTPATIENT MEDICATIONS:propranolol (INDERAL) 20 mg tablet Take 1 tablet by mouth twice daily.fluticasone (FLONASE) 50 mcg/actuation nasal spray Use 1 Hodge in each nostrilonce daily.Cholecalciferol, Vitamin D3, (VITAMIN D) 1,000 unit cap Take 1,000 Units bymouth once daily.pregabalin (LYRICA) 50 mg capsule Take 1 capsule by mouth twice daily.LORATADINE (CLARITIN ORAL) Take by mouth.esomeprazole (NEXIUM) 20 mg capsule Take 20 mg by mouth DAILY (6 AM).tiZANidine (ZANAFLEX) 2 mg tablet Take 2 mg by mouth every 6 hours as needed.oxyCODONE-acetaminophen (PERCOCET) 5-325 mg tablet Take 1 tablet by mouth every4 hours as needed.metHIMazole (TAPAZOLE) 10 mg tablet Take 1 tablet by mouth once daily.PAST MEDICAL HISTORYDiagnosis Date- Allergic rhinitis- Appendicitis- Chronic back pain 2/2 injury at work for [employer]. Seeing Dr. Augustine pain management- DDD (degenerative disc disease), cervical- DDD (degenerative disc disease), lumbar- Environmental allergies- GERD (gastroesophageal reflux disease)- Graves disease seeing Dr. Jackson- Hypothyroidism- Obesity (BMI 35.0-39.9 without comorbidity)- Status post insertion of spinal cord stimulatorPAST SURGICAL HISTORYProcedure Laterality Date- APPENDECTOMY- COLONOSCOPY- IR RADIO FREQUENCY ABLATION lumbar spine x2- PAST SURGICAL HISTORY OF cervical spine fusion- PAST SURGICAL HISTORY OF fusion of L3-L5- PAST SURGICAL HISTORY OF microdiscectomy- PAST SURGICAL HISTORY OF Right knee arthroscopy for meniscal tear- PAST SURGICAL HISTORY OF ventral hernia repair- PAST SURGICAL HISTORY OF sinus surgery- S SPINAL CORD STIMULATOR,FAMILY HISTORYProblem Relation Age of Onset- Thyroid Mother- dementia [OTHER] Mother- Cancer Father lung- Alzheimer's Disease Maternal Aunt- dementia [OTHER] Maternal Uncle- Stroke Paternal Uncle- Cancer Paternal Grandmother mouth/throatSocial History Marital status: Spouse name: Years of education: Number of children:Social History Main Topics Smoking status: Never Smoker Smokeless status: Never Used Alcohol use: No Drug use: No Sexual activity: Yes Partners with: FemaleREVIEW OF SYSTEMS: General: No chills, fever, weight loss, night sweats.SHEENT: No change in vision or auditory acuity. Respiratory: No productivecough. Cardiac: As noted above. GI: No melena. History of GERD. : Nodysuria. Musculoskeletal: No myalgias. Neurologic: No strokes. Psychiatric:No depression. Endocrine: No diabetes.Otherwise as above Hematologic: Historyof anemia.PHYSICAL EXAMINATION: S/he is alert and in no distressVITAL SIGNS: BP 133/85 Pulse 72 Wt 242 lb 12.8 oz (110.1kg)SHEENT: Skin is warm and dry. Pupils are round and reactive. Retinal vesselsare grossly unremarkable. No xanthelasmas appreciated. Pharynx is benign.There is no oral cyanosis. Neck: supple. No adenopathy or thyroidenlargement. Chest: Clear to percussion and auscultation. Trachea is midline. Air entry is equal. There is no chest wall tenderness. Cardiac: Regularrhythm. S1 and S2 are normal. PMI is nondisplaced. Soft systolic ejectionmurmur without radiation. No click is heard. Carotids are brisk withoutbruits. JVP is less than 10 cm. Abdomen: Soft and nontender. Obesityprecludes adequate examination. There are no pulsatile masses or bruits. Noliver enlargement. Bowel sounds are active. : Deferred. Extremities: Traceedema. Pulses are intact and symmetrical. No clubbing or cyanosis. Nofemoral bruits. Neurologic: Grossly normal motor and sensory. Gait is laboreddue to back pain. He would not be able to ambulate on a treadmill. S/he isalert and oriented x4. Musculoskeletal: No joint deformities.EKG shows sinus rhythm with first degree AV block.Labs include just thyroid studies. Basic profile and lipids have been ordered,but not drawn.Electronically Signed:Cely Astorga MDNovember 2016 10:43 [facility]: Anthony Wilcox MD 04/26/2017 10:46 AM SignedTake aspirin 81 mg dailyUse nitro for chest pain and go to ER if pain is not relievedLIFESTYLE CHANGEA healthy lifestyle is the most important component of your overall treatmentplan. Please give serious thought to the following areas and commit to makinglong term changes.EAT A WHOLE FOOD, PLANT BASED DIETThe nutrition your body gets is more important than the medicine you take.What matters most is the overall way you eat. We encourage you to minimize theuse of animal products (which include dairy and all meats except fatty fish)and use whole, unprocessed plant foods to provide your protein, vitamins andother nutrients. We have a lot of information to share with you on this topic. We also hold Shared Medical Appointments, where you can come visit with in the company of other patients and spend over an hour talking aboutthe challenges of changing the way you eat. This is not a ANDquot;dietANDquot;.It is a way of life that you will keep with you.EXERCISE REGULARLYIt is not important to spend hours in the gym, lifting weights and perspiringheavily. A total of 2-3 hours per week of aerobic (causing you to bemoderately short of breath) exercise is sufficient to improve your health.Talk to us before you begin a new exercise program, if you have heart diseaseor experience shortness of breath or chest pain.REDUCE STRESSChronic emotional and physical stress leads to disease. Ways of reducingstress include meditation, visualization, prayer, yoga and other forms ofrelaxation therapy. Consistency is the dominguez. Find a technique that works foryou and do it every day.CULTIVATE RELATIONSHIPSLoneliness and isolation have a major negative impact on health. Seek outothers who can love, care for and nurture you. Avoid hurtful relationships.MAINTAIN IDEAL BODY WEIGHTThe best way to do this is to do all the things above. Our bodies naturallyfind the right weight if we keep moving and feed ourselves the right food. Ifyour BMI is greater than 25, we strongly recommend a referral to a weightmanagement program. Please speak to us or your family physician aboutavailable programs.AVOID NICOTINE IN ALL FORMSThis includes all tobacco products, whether chewed, smoked, vaped, or rubbed onthe skin. Smoking cessation programs, which can make use of tobaccosubstitutes, medications to suppress cravings and behavior management, areavailable. Please contact your family physician about programs in your area.Referring Provider: CELY ASTORGA [[id number]]Allergies As of Date: 04/26/2017 Noted Allergy ReactionPHENERGAN (PROMETHAZINE HCL) 09/03/2016 1 - Mental Status ChangeDate Reviewed: 04/26/2017Reviewed by: Uzma Ribeiro) Aurea - Fully AssessedReason for Visit: Consult [502]Primary Visit Diagnosis:Chest pain, unspecified type [R07.9] Other Visit Diagnoses:CRANDALL (dyspnea on exertion) [R06.09] Hypertension, essential [I10]Order(s):ECHO [685502] Order #: [id number]: 1 FUTURE NM CARDIAC PERF STRESS/PHARM [6550023] Order #: [id number] FUTURE regadenoson (LEXISCAN) 0.4 mg/5 mL syrgInject 5 mL intravenously one time only for 1 dose. Give IV push over 10 seconds and follow with 5 ml of normal salineDisp: 5 mLRfl: 0 IV START - SPECIFY [[id number]] Order #: [id number]: 1 IV DISCONTINUE [[id number]] Order #: [id number]: 1 aspirin, enteric coated (ASPIR-LOW) 81 mg EC tabletTake 1 tablet by mouth once daily.Disp: Rfl: 0 nitroglycerin sublingual (NITROQUICK) 0.4 mg SL tabletDissolve 1 tablet under the tongue as needed. for chest pain,every 5 min x3Disp: 1 Bottle of 25Rfl: 3 ECG COMPLETE W INTERPRETATION [ECG01] Order #: [id number] FUTUREPrescriptions as of 04/26/2017 Sig: PROPRANOLOL 20 MG TABLET Take 1 tablet by mouth twice * FLUTICASONE 50 MCG/ACTUATION * Use 1 Hodge in each nostril o* CHOLECALCIFEROL (VITAMIN D3) * Take 1,000 Units by mouth onc* PREGABALIN 50 MG CAPSULE Take 1 capsule by mouth twice* CLARITIN ORAL Take by mouth. ESOMEPRAZOLE MAGNESIUM 20 MG * Take 20 mg by mouth DAILY (6 * TIZANIDINE 2 MG TABLET Take 2 mg by mouth every 6 ho* OXYCODONE-ACETAMINOPHEN 5 MG-* Take 1 tablet by mouth every * REGADENOSON 0.4 MG/5 ML INTRA* Inject 5 mL intravenously one* ASPIRIN 81 MG TABLET,DELAYED * Take 1 tablet by mouth once d* NITROGLYCERIN 0.4 MG SUBLINGU* Dissolve 1 tablet under the t* METHIMAZOLE 10 MG TABLET Take 1 tablet by mouth once d*Problem List As Of Date 04/26/2017 Noted Resolved Graves disease [E05.00] INVALID FOR* GERD (gastroesophageal reflux disease) [K21.9] Chronic back pain [M54.9, G89.29] More... DDD (degenerative disc disease), cervical [M50.* DDD (degenerative disc disease), lumbar [M51.36] Obesity (BMI 35.0-39.9 without comorbidity) [E6* Hypothyroidism [E03.9] Status post insertion of spinal cord stimulator* Other instructions from your clinician: Take aspirin 81 mg daily Use nitro for chest pain and go to ER if pain is not relieved LIFESTYLE CHANGE A healthy lifestyle is the most important component of your overall treatment plan. Please give serious thought to the following areas and commit to making assisted changes. EAT A WHOLE FOOD, PLANT BASED DIET The nutrition your body gets is more important than the medicine you take. What matters most is the overall way you eat. We encourage you to minimize the use of animal products (which include dairy and all meats except fatty fish) and use whole, unprocessed plant foods to provide your protein, vitamins and other nutrients. We have a lot of information to share with you on this topic. We also hold Shared Medical Appointments, where you can come visit with Dr. Astorga in the company of other patients and spend over an hour talking about the challenges of changing the way you eat. This is not a diet . It is a way of life that you will keep with you. EXERCISE REGULARLY It is not important to spend hours in the gym, lifting weights and perspiring heavily. A total of 2-3 hours per week of aerobic (causing you to be moderately short of breath) exercise is sufficient to improve your health. Talk to us before you begin a new exercise program, if you have heart disease or experience shortness of breath or chest pain. REDUCE STRESS Chronic emotional and physical stress leads to disease. Ways of reducing stress include meditation, visualization, prayer, yoga and other forms of relaxation therapy. Consistency is the dominguez. Find a technique that works for you and do it every day. CULTIVATE RELATIONSHIPS Loneliness and isolation have a major negative impact on health. Seek out others who can love, care for and nurture you. Avoid hurtful relationships. MAINTAIN IDEAL BODY WEIGHT The best way to do this is to do all the things above. Our bodies naturally find the right weight if we keep moving and feed ourselves the right food. If your BMI is greater than 25, we strongly recommend a referral to a weight management program. Please speak to us or your family physician about available programs. AVOID NICOTINE IN ALL FORMS This includes all tobacco products, whether chewed, smoked, vaped, or rubbed on the skin. Smoking cessation programs, which can make use of tobacco substitutes, medications to suppress cravings and behavior management, are available. Please contact your family physician about programs in your area.Prescriptions ordered this encounter Disp Refills Start End REGADENOSON 0.4 MG/5 ML INTRAVENOUS * 5 mL 0 04/26/2017 04/26/2017 Class: In Office Route: INTRAVENOUS Sig: Inject 5 mL intravenously one time only for 1 dose. Give IV push over 10 seconds and follow with 5 ml of normal saline ASPIRIN 81 MG TABLET,DELAYED RELEASE 0 04/26/2017 Class: Med Update Route: ORAL Sig: Take 1 tablet by mouth once daily. NITROGLYCERIN 0.4 MG SUBLINGUAL TABL* 1 Mk* 3 04/26/2017 Route: SUBLINGUAL Sig: Dissolve 1 tablet under the tongue as needed. for chest pain,every 5 min [id number] and Disposition History RecordedEncounter Number: [id number] Status:Closed by CELY ASTORGA MD on 04/26/17 Normal [facility] PROGRESSon 04-26-2017 PROGRESS HNO ID: [id number] thor: Cely Hawley: (none)Author Type: PhysicianType: Progress NotesFiled: 04/26/2017 4:50 PMNote Text:PERTINENT CARDIAC HISTORYChest painDOEHTNHL?Grave's diseaseADHERENCE TO GUIDELINESACE-I or ARB for HF with prior LVEF<40 (NQF 0081) - N/AASA or Plavix for ASHD (NQF 0067) - metBeta suri for ASHD with prior HI or prior LVEF<40 (NQF 0070) - N/ABeta suri for HF with prior LVEF<40 (NQF 0083) - N/AACE-I or ARB for ASHD with DM or prior LVEF<40 (NQF 0066) - N/AStatin therapy for ASHD or FHL or DM - N/ABMI documented and plan if >25 (NQF 0421) - lifestyle recommendation formTobacco use screening and referral (NQF 0028) - lifestyle recommendationformRecommendation for whole food, plant based diet - lifestyle recommendationformCLINICAL IMPRESSION/PLAN:Jimena Simms presents with symptoms that are suspicious for LVdysfunction, ischemia, or arrhythmia. I've advised him to continue hiscurrent medication which now includes propranolol. He will add aspirin 81milligrams daily and I have given him a prescription for nitroglycerinwith instructions in its use. I've asked him to go to emergency departmentfor pain that is unrelieved or associated with nausea, diaphoresis orshortness of breath. If his symptoms become unstable, we will proceeddirectly with angiography.Lexiscan nuclear stress test will be carried out in the near future. Hewill have an echocardiogram for assessment of valvular disease and LVfunction. I encouraged him to have his labs done today.I will see him in one month or as needed.Thank you for asking me to see and make recommendations on Jimena Siegel. This report is available to you in the shared medical record.Written and verbal health teaching given to patient, patient verbalizesunderstanding and agrees with treatment plan.This note was generated using Dragon voice recognition system, and theremay be some incorrect words, spellings, and punctuation that were notnoted in checking the note before saving.DIAGNOSIS FOR VISIT:Chest painHISTORY OF PRESENT ILLNESSJimena Simms is a 61-year-old gentleman who is seen at the request ofDr. Blood, for recommendations regarding several month history ofintermittent chest pressure, dyspnea, exercise intolerance, and occasionaldiaphoresis.He reports that he has had intermittent pressure in the chest which canoccur sometimes at rest but is typically worsened by exertion. Theseepisodes can last from minutes to hours. They're sometimes associated withdiaphoresis.He has noted that he is more short of breath with minimal activity. Bloodpressure has been more labile. He has noticed decreased exercisetolerance. He has a previous spinal injury but continues to walk.He has Graves' disease and was placed on a beta suri when thisdiagnosis was made as his heart rate was high and it was pounding. He hasnoticed some increased heart rate recently, but denies a sensation ofpalpitations. He was recently taken off Tapazole and is awaitingdetermination of whether he will require supplementation.He denies TIAs, amaurosis, claudication.Risk factors for coronary disease include hypertension and possiblehyperlipidemia.ALLERGIES:A LLERGIESAllergen Reactions- Phenergan [Prometha* Mental Status ChangeCURRENT OUTPATIENT MEDICATIONS:propranolol (INDERAL) 20 mg tablet Take 1 tablet by mouth twice daily.fluticasone (FLONASE) 50 mcg/actuation nasal spray Use 1 Hodge in eachnostril once daily.Cholecalciferol, Vitamin D3, (VITAMIN D) 1,000 unit cap Take 1,000 Unitsby mouth once daily.pregabalin (LYRICA) 50 mg capsule Take 1 capsule by mouth twice daily.LORATADINE (CLARITIN ORAL) Take by mouth.esomeprazole (NEXIUM) 20 mg capsule Take 20 mg by mouth DAILY (6 AM).tiZANidine (ZANAFLEX) 2 mg tablet Take 2 mg by mouth every 6 hours asneeded.oxyCODONE-acetaminophen (PERCOCET) 5-325 mg tablet Take 1 tablet by mouthevery 4 hours as needed.metHIMazole (TAPAZOLE) 10 mg tablet Take 1 tablet by mouth once daily.PAST MEDICAL HISTORYDiagnosis Date- Allergic rhinitis- Appendicitis- Chronic back pain 2/2 injury at work for [employer]. Seeing Dr. Augustine pain management- DDD (degenerative disc disease), cervical- DDD (degenerative disc disease), lumbar- Environmental allergies- GERD (gastroesophageal reflux disease)- Graves disease seeing Dr. Jackson- Hypothyroidism- Obesity (BMI 35.0-39.9 without comorbidity)- Status post insertion of spinal cord stimulatorPAST SURGICAL HISTORYProcedure Laterality Date- APPENDECTOMY- COLONOSCOPY- IR RADIO FREQUENCY ABLATION lumbar spine x2- PAST SURGICAL HISTORY OF cervical spine fusion- PAST SURGICAL HISTORY OF fusion of L3-L5- PAST SURGICAL HISTORY OF microdiscectomy- PAST SURGICAL HISTORY OF Right knee arthroscopy for meniscal tear- PAST SURGICAL HISTORY OF ventral hernia repair- PAST SURGICAL HISTORY OF sinus surgery- S SPINAL CORD STIMULATOR,FAMILY HISTORYProblem Relation Age of Onset- Thyroid Mother- dementia [OTHER] Mother- Cancer Father lung- Alzheimer's Disease Maternal Aunt- dementia [OTHER] Maternal Uncle- Stroke Paternal Uncle- Cancer Paternal Grandmother mouth/throatSocial History Marital status: Spouse name: Years of education: Number of children:Social History Main Topics Smoking status: Never Smoker Smokeless status: Never Used Alcohol use: No Drug use: No Sexual activity: Yes Partners with: FemaleREVIEW OF SYSTEMS: General: No chills, fever, weight loss, night sweats. SHEENT: No change in vision or auditory acuity. Respiratory: Noproductive cough. Cardiac: As noted above. GI: No melena. History ofGERD. : No dysuria. Musculoskeletal: No myalgias. Neurologic: Nostrokes. Psychiatric: No depression. Endocrine: No diabetes.Otherwise asabove Hematologic: History of anemia.PHYSICAL EXAMINATION: S/he is alert and in no distressVITAL SIGNS: BP 133/85 Pulse 72 Wt 242 lb 12.8 oz (110.1kg)SHEENT: Skin is warm and dry. Pupils are round and reactive. Retinalvessels are grossly unremarkable. No xanthelasmas appreciated. Pharynxis benign. There is no oral cyanosis. Neck: supple. No adenopathy orthyroid enlargement. Chest: Clear to percussion and auscultation.Trachea is midline. Air entry is equal. There is no chest walltenderness. Cardiac: Regular rhythm. S1 and S2 are normal. PMI isnondisplaced. Soft systolic ejection murmur without radiation. No clickis heard. Carotids are brisk without bruits. JVP is less than 10 cm.Abdomen: Soft and nontender. Obesity precludes adequate examination. Thereare no pulsatile masses or bruits. No liver enlargement. Bowel soundsare active. : Deferred. Extremities: Trace edema. Pulses are intactand symmetrical. No clubbing or cyanosis. No femoral bruits.Neurologic: Grossly normal motor and sensory. Gait is labored due to backpain. He would not be able to ambulate on a treadmill. S/he is alert andoriented x4. Musculoskeletal: No joint deformities.EKG shows sinus rhythm with first degree AV block.Labs include just thyroid studies. Basic profile and lipids have beenordered, but not drawn.Electronically Signed:Cely Astorga MDNovember 2016 10:43 [facility]: Noemi Blood MD [facility] Vital Signs Date Time Vital Sign Value Performing Clinician Faci lennyy 10-17-2023 09:46-0400 Body mass index (BMI) [Ratio] 33.82 kg/m2 Mirian Jackson MD Work Phone: [facility] 10-17-2023 09:46-0400 Body weight 100.9 kg Mirian Jackson MD Work Phone: [facility] 10-17-2023 09:46-0400 Diastolic blood pressure 72 mm[Hg] Mirian Jackson MD Work Phone: [facility] 10-17-2023 09:46-0400 Heart rate 74 /min Mirian Jackson MD Work Phone: [facility] 10-17-2023 09:46-0400 SaO2% (BldA) [Mass fraction] 96 % Mirian Jackson MD Work Phone: [facility] 10-17-2023 09:46-0400 Systolic blood pressure 110 mm[Hg] Mirian Jackson MD Work Phone: [facility] 04-06-2023 09:23-0400 Body height 172.7 cm Mirian Jackson MD Work Phone: [facility] 04-06-2023 09:23-0400 Body weight 104.33 kg Mirian Jackson MD Work Phone: [facility] 04-06-2023 09:23-0400 Diastolic blood pressure 81 mm[Hg] Mirian Jackson MD Work Phone: [facility] 04-06-2023 09:23-0400 Heart rate 83 /min Mirian Jackson MD Work Phone: [facility] 04-06-2023 09:23-0400 Respiratory rate 16 /min Mirian Jackson MD Work Phone: [facility] 04-06-2023 09:23-0400 SaO2% (BldA) [Mass fraction] 96 % Mirian Jackson MD Work Phone: [facility] 04-06-2023 09:23-0400 Systolic blood pressure 130 mm[Hg] Mirian Jackson MD Work Phone: [facility] 10-04-2022 09:11-0400 Diastolic blood pressure 94 mm[Hg] Mirian Jackson MD Work Phone: [facility] 10-04-2022 09:11-0400 Systolic blood pressure 147 mm[Hg] Mirian Jackson MD Work Phone: [facility] 10-04-2022 08:23-0400 Body height 172.7 cm Mirian Jackson MD Work Phone: [facility] 10-04-2022 08:23-0400 Body temperature 97.5 [degF] Mirian Jackson MD Work Phone: [facility] 10-04-2022 08:23-0400 Body weight 107.5 kg Mirian Jackson MD Work Phone: [facility] 10-04-2022 08:23-0400 Heart rate 85 /min Mirian Jackson MD Work Phone: [facility] 10-04-2022 08:23-0400 Respiratory rate 19 /min Mirian Jackson MD Work Phone: [facility] 10-04-2022 08:23-0400 SaO2% (BldA) [Mass fraction] 97 % Mirian Jackson MD Work Phone: [facility] 06-16-2022 13:11-0500 Diastolic blood pressure 95 mm[Hg] [facility] Augustine [facility] 06-16-2022 13:11-0500 Heart rate 72 /min Robin Augustine MD Work Phone: [facility] 06-16-2022 13:11-0500 Respiratory rate 18 /min Robin Augustine MD Work Phone[facility] 06-16-2022 13:11-0500 SaO2% (BldA) [Mass fraction] 95 % Robin Augustine MD [facility] 06-16-2022 13:11-0500 Systolic blood pressure 155 mm[Hg] Robin Augustine MD [facility] 06-16-2022 12:56-0500 Body temperature 97.5 [degF] Robin Augustine MD [facility] 06-16-2022 11:26-0500 Body height 180.3 cm Robin Augustine MD [facility] 06-16-2022 11:26-0500 Body mass index (BMI) [Ratio] 29.99 kg/m2 Robin Augustine MD [facility] 06-16-2022 11:26-0500 Body weight 97.52 kg Robin Augustine MD [facility] 03-31-2022 13:08-0400 Diastolic blood pressure 88 mm[Hg] Robin Augustine MD [facility] 03-31-2022 13:08-0400 Heart rate 77 /min Robin Augustine MD [facility] 03-31-2022 13:08-0400 Respiratory rate 16 /min Robin Augustine MD [facility] 03-31-2022 13:08-0400 SaO2% (BldA) [Mass fraction] 96 % Robin Augustine MD [facility] 03-31-2022 13:08-0400 Systolic blood pressure 135 mm[Hg] Robin Augustine MD [facility] 03-31-2022 11:37-0400 Body height 180.3 cm Robin Augustine MD [facility] 03-31-2022 11:37-0400 Body mass index (BMI) [Ratio] 29.99 kg/m2 Robin Augustine MD [facility] 03-31-2022 11:37-0400 Body temperature 98.4 [degF] Robin Augustine MD [facility] 03-31-2022 11:37-0400 Body weight 97.52 kg Robin Augustine MD [facility] 12-30-2021 15:16-0400 Body height 180.3 cm Mirian Jackson MD Work Phone: [facility] 12-30-2021 15:16-0400 Body weight 102.97 kg Mirian Jackson MD Work Phone: [facility] 12-30-2021 15:16-0400 Diastolic blood pressure 89 mm[Hg] Mirian Jackson MD Work Phone: [facility] 12-30-2021 15:16-0400 Heart rate 76 /min Mirian Jackson MD Work Phone: [facility] 12-30-2021 15:160400 SaO2% (BldA) [Mass fraction] 96 % Mirian Jackson MD Work Phone: [facility] 12-30-2021 15:160400 Systolic blood pressure 140 mm[Hg] Mirian Jackson MD Work Phone: [facility] Encounters Encounter Date Encounter Type Care Provider Facility Start: 04-03-2024 End: 04-04-2024 Refill Mirian Jackson MD Work Phone: Endocrinology Comment on above: Refill Request Start: 03-14-2024 End: 03-15-2024 Refill Mirian Jackson MD Work Phone: Endocrinology Comment on above: Refill Request Start: 01-10-2024 End: 01-10-[address] [facility] Start: 10-17-2023 End: 10-18-2023 ambulatory [facility] Facility:[facility] Start: 10-17-2023 End: 10-17-2023 Patient encounter procedure Mirian Jackson MD Work Phone: Endocrinology Comment on above: Hypothyroidism, unsp ecified type (Primary Dx); Prediabetes Start: 04-13-2023 End: 04-14-2023 [facility] Start: 04-06-2023 End: 04-06-2023 ambulatory [facility] Facility:[facility] Start: 04-06-2023 End: 04-06-2023 Patient encounter procedure Mirian Jackson MD Work Phone: Endocrinology Comment on above: Hypothyroidism, unsp ecified type (Primary Dx); Prediabetes; Obesity, Class II, BMI 35-39.9; Vitamin D deficiency Start: 10-04-2022 End: 10-04-2022 Patient encounter procedure Mirian Jackson MD Work Phone: Endocrinology Comment on above: Hypothyroidism, unsp ecified type (Primary Dx); Pre-diabetes; Obesity, Class II, BMI 35-39.9; Vitamin D deficiency; Elevated BP without diagnosis of hypertension; Snoring Start: 06-16-2022 End: 06-16-2022 Subsequent hospital visit by physician Robin Augustine MD Work Phone: [facility] Start: 03-31-2022 End: 03-31-2022 Subsequent hospital visit by physician Robin Augustine MD Work Phone: [facility] Start: 01-05-2022 ambulatory Mirian Jackson MD Work Phone: Endocrinology Comment on above: results Start: 12-30-2021 End: 12-30-2021 Patient encounter procedure Mirian Jackson MD Work Phone: Endocrinology Comment on above: Hypothyroidism, unsp ecified type (Primary Dx); Pre-diabetes; Obesity (BMI 30.0-34.9); Vitamin D deficiency Start: 04-28-2020 End: 04-28-2020 Subsequent hospital visit by physician [facility] Work Phone: Radiology Comment on above: Chest pressure [R07. 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 AGENT.[employer]PAR[employer] Work Phone: Start: 01-21-2020 Adult depression screening assessment Mirian Jackson MD Work Phone: Start: 09-25-2018 Lipid 1996 panel - S edison or Plasma Mirian Jackson MD Work Phone: Plan of Treatment Date Care Activity Detail Author Start: 2029 RSV Vaccine (1 - 1-d ose 75+ series) RSV Vaccine (1 - 1-dose 75+ series) [facility] Start: 10-16-2026 Diabetes Screening Diabetes Screenin g [facility] Start: 10-04-2025 Diabetes Screening Diabetes Screenin g [facility] Start: 01-03-2025 DIABETES SCREEN DIABETES SCREEN [facility] Start: 07-02-2024 DIABETES SCREEN DIABETES SCREEN [facility] Start: 04-18-2024 End: 04-18-2024 Patient encounter procedure 04/18/2024 10:40 AM EDT Office Visit Endocrinology [address] [address] Mirian Jackson MD [address] [address] 6 month f/u hypothyroid Endocrinology Comment on above: 6 month f/u hypothyr oid Start: 02-25-2024 Covid-19 Vaccine () Covid-19 Vaccine () [facility] Start: 02-25-2024 Covid-19 Vaccine () Covid-19 Vaccine () [facility] Start: 02-25-2024 Influenza vaccination [facility] Start: 09-26-2023 Lipid 1996 panel - Serum or Plasma Lipid Screening [facility] Start: 09-26-2023 Lipid panel Lipid Screening [facility] Start: 09-26-2023 LIPID SCREEN LIPID SCREEN [facility] Start: 06-26-2023 Advance Directive Discussion Advance Directive Discussion [facility] Start: 06-26-2023 Behavioral Health Screening Behavioral Health Screening [facility] Start: 04-06-2023 End: 06-06-2023 Hemoglobin A1c in Blood HGB A1C Lab Routine Prediabetes Expected: 04/06/2023, Expires: 06/06/2023 [facility] Work Phone: Comment on above: Expected: 04/06/2023 , Expires: 06/06/2023 Start: 04-06-2023 End: 06-06-2023 Thyrotropin [Units/volume] in Serum or Plasma TSH BLD Lab Routine Hypothyroidism, unspecified type Expected: 04/06/2023, Expires: 06/06/2023 [facility] Work Phone: Comment on above: Expected: 04/06/2023 , Expires: 06/06/2023 Start: 04-06-2023 End: 06-06-2023 Thyroxine (T4) free [Mass/volume] in Serum or Plasma T4 FREE/FREE THYROX Lab Routine Hypothyroidism, unspecified type Expected: 04/06/2023, Expires: 06/06/2023 [facility] Work Phone: Comment on above: Expected: 04/06/2023 , Expires: 06/06/2023 Start: 02-24-2023 Covid-19 Vaccine () Covid-19 Vaccine () [facility] Start: 02-24-2023 Influenza vaccination [facility] Start: 10-04-2022 End: 12-04-2022 25-hydroxyvitamin D3 [Mass/volume] in Serum or Plasma [facility] Work Phone: Comment on above: Expected: 10/04/2022 , Expires: 12/04/2022 Start: 10-04-2022 End: 12-04-2022 Hemoglobin A1c in Blood [facility] Work Phone: Comment on above: Expected: 10/04/2022 , Expires: 12/04/2022 Start: 07-01-2022 End: 07-01-2022 Patient encounter procedure 07/01/2022 Office Visit Pain Management Robin Augustine MD [address] [facility], [place] [address] [facility] Start: 06-26-2022 ADVANCE DIRECTIVE DISCUSSION ADVANCE DIRECTIVE DISCUSSION [facility] Start: 06-26-2022 DEPRESSION ASSESSMENT DEPRESSION ASS ESSMENT [facility] Start: 06-16-2022 End: 06-16-2022 Njx dx/ther sbst intrlmnr lmbr/sac w/img gdn EPIDURAL STEROID INJECTION Lumbar radiculitis 06/16/2022 12:30 PM [facility] Start: 04-18-2022 End: 04-18-2022 Patient encounter procedure 04/18/2022 Office Visit Pain Management Robin Augustine MD [address] [facility] [place] [address] [facility] Start: 03-31-2022 End: 03-31-2022 Njx anes&/strd w/img tfrml edrl lmbr/sac 1 lvl EPIDURAL STEROID INJECTION Lumbar radiculitis 03/31/2022 12:34 PM EDT [facility] Start: 02-24-2022 Influenza vaccination INFLUENZA (#1) [facility] Start: 01-24-2022 Influenza vaccination Flu vaccine (# 1) [facility] Start: 12-30-2021 End: 03-01-2022 Hemoglobin A1c in Blood HGB A1C Lab Routine Pre-diabetes Expected: 12/30/2021, Expires: 03/01/2022 [facility] Work Phone: Comment on above: Expected: 12/30/2021 , Expires: 03/01/2022 Start: 12-30-2021 End: 03-01-2022 Thyrotropin [Units/volume] in Serum or Plasma TSH BLD Lab Routine Hypothyroidism, unspecified type Expected: 12/30/2021, Expires: 03/01/2022 [facility] Work Phone: Comment on above: Expected: 12/30/2021 , Expires: 03/01/2022 Start: 12-30-2021 End: 03-01-2022 Thyroxine (T4) free [Mass/volume] in Serum or Plasma T4 FREE/FREE THYROX Lab Routine Hypothyroidism, unspecified type Expected: 12/30/2021, Expires: 03/01/2022 [facility] Work Phone: Comment on above: Expected: 12/30/2021 , Expires: 03/01/2022 Start: 09-14-2021 COVID-19 VACCINE (4 - Booster for Moderna series) COVID-19 VACCINE (4 - Booster for Moderna series) [facility] Start: 07-12-2021 COVID-19 VACCINE (4 - Booster for Moderna series) COVID-19 VACCINE (4 - Booster for Moderna series) [facility] Start: 06-26-2021 ADVANCE DIRECTIVE DISCUSSION ADVANCE DIRECTIVE DISCUSSION [facility] Start: 04-27-2021 ANNUAL PCP TEAM COFFEE TASTER PINEDA DISEASE VISIT ANNUAL PCP TEAM CHRONIC DISEASE VISIT [facility] Start: 04-27-2021 Pneumococcal 65+ yea rs Vaccine (2 - PPSV23 if available, else PCV20) Pneumococcal 65+ years Vaccine (2 - PPSV23 if available, else PCV20) [facility] Start: 04-27-2021 Pneumococcal 65+ yea rs Vaccine (2 - PPSV23 or PCV20) Pneumococcal 65+ years Vaccine (2 - PPSV23 or PCV20) [facility] Start: 04-27-2021 Pneumococcal Vaccine : 65+ (2 - PPSV23 or PCV20) Pneumococcal Vaccine: 65+ (2 - PPSV23 or PCV20) [facility] Start: 04-27-2021 Pneumococcal Vaccine : 65+ (2 of 2 - PPSV23 or PCV20) Pneumococcal Vaccine: 65+ (2 of 2 - PPSV23 or PCV20) [facility] Start: 04-27-2021 PNEUMOCOCCAL: 65+ (2 - PPSV23 if available, else PCV20) PNEUMOCOCCAL: 65+ (2 - PPSV23 if available, else PCV20) [facility] Start: 04-27-2021 PNEUMOCOCCAL: 65+ (2 - PPSV23 or PCV20) PNEUMOCOCCAL: 65+ (2 - PPSV23 or PCV20) [facility] Start: 01-20-2021 Adult depression screening assessment DEPRESSION SCREENING [facility] Start: 04-23-2019 Screening for malign ant neoplasm of colon [facility] Start: 2014 RSV Vaccine (1 - 1-d ose 60+ series) RSV Vaccine (1 - 1-dose 60+ series) [facility] Start: 2009 PROSTATE CANCER SCREENING DISCUSSION PROSTATE CANCER SCREENING DISCUSSION [facility] Start: 2004 Shingles vaccine (1 of 2) Shingles vaccine (1 of 2) [facility] Start: 2004 SHINGRIX VACCINE (1 of 2) SHINGRIX VACCINE (1 of 2) [facility] Start: 09-10-1999 COLOGUARD (FIT-DNA) COLOGUARD (FIT-D NA) [facility] Start: 09-10-1999 Colonoscopy COLONOSCOPY [facility] Start: 09-10-1999 COLORECTAL CANCER SCREENING COLORECTAL CANCER SCREENING [facility] Start: 09-10-[address] COLONOGRAPHY [facility] Start: 09-10-1999 FECAL OCCULT BLOOD FECAL OCCULT BLOO D [facility] Start: 09-10-1999 Screening for malign ant neoplasm of colon [facility] Start: 09-10-1999 SIGMOIDOSCOPY SIGMOIDOSCOPY [facility] Start: 1994 Lipid panel Lipids [facility] Start: 1989 Diabetes screen Diabetes screen [facility] Start: 1973 DTaP/Tdap/Td vaccine (1 - Tdap) DTaP/Tdap/Td vaccine (1 - Tdap) [facility] Start: 1973 Urine microalbumin profile [facility] Start: 1972 Anxiety Screening Anxiety Screening [facility] Start: 1972 Depression Screening Depression Scre ening [facility] Start: 1972 Hepatitis C screening Hepatitis C sc reen [facility] Start: 1966 Depression Screen Depression Screen [facility] Start: [birth year]-12-1956 COVID-19 Vaccine (#1) COVID-19 Vacci ne (#1) [facility] Immunizations Immunization Date Immunization Notes Care Provider Fa cili 04-27-2020 pneumococcal conjuga te vaccine, 13 valent Mirian Jackson MD Work Phone: [facility] 03-30-2020 influenza virus vacc ine, unspecified formulation Mirian Jackson MD Work Phone: [facility] 04-16-2019 influenza, seasonal, injectable Mirian Jackson MD Work Phone: [facility] Payers Date Payer Category Payer Medicare MMO MEDICARE MMO MED[employer]VANTAGE [facility] [id number] 2018-Present [phone] [address] [place] [address] [facility] [id number] 2018 Medicare MMO MEDICARE MMO [employer]VANTAGE HMO [id number] 2018-Present [phone] [address] [place] [address] O [id number] 2018 Unknown [id number] 1999 Unknown ESIS ESIS [id number] 1999-Present [address] [place] [address] [id number] 1999 Unknown 1999 1955 Unknown [id number] Unknown [id number] Social History Date Type Detail Facility Start: 09-03-2016 End: 04-06-2023 Tobacco smoking status VAIS Never smoked tobacco [facility] Start: 09-03-2016 End: 04-06-2023 Tobacco use and exposure Smokeless tobacco non-user [facility] Start: 12-30-2021 End: 10-17-2023 Alcohol intake Current non-drinker of alcohol (finding) [facility] Start: 01-21-2020 History SDOH Alcohol Frequency 1 [facility] Start: 01-21-2020 History SDOH Physica l Activity MPS 0 [facility] Start: 01-21-2020 History SDOH Stress 2 [facility] Start: 01-21-2020 History SDOH Financial 4 [facility] Start: 01-21-2020 Education 12 [facility] Start: 1955 Sex Assigned At Not on file [facility] Start: 03-28-2020 End: 06-16-2022 Exposure to SARS-CoV-2 (event) Not sure [facility] Start: 01-21-2020 End: 04-06-2023 History of Social function [facility] Start: 01-21-2020 End: 04-06-2023 Alcohol Use Disorder Identification Test - Consumption [AUDIT-C] [facility] How often to you hav e a drink containing alcohol? Never [facility] Average Number of Drinks Not on file [facility] How hard is it for y ou to pay for the very basics like food, housing, medical care, and heating Not very hard [facility] Do you feel stress - tense, restless, nervous, or anxious, or unable to sleep at night because your mind is troubled all the time - these days [OSQ] Only a little [facility] (I/We) worried f f [facility] (my/our) food would run out before (I/we) got money to buy more. Never true [facility] Clinical Notes 04-28-2020 to 04-03-2024 Telephone Encounter - Gail Montoya - 04/03/2024 11:20 AM EDTTelephone Encounter - Gail Montoya - 04/03/2024 11:20 AM EDTTelephone Encounter - Jordyn Portillo MA - 03/15/2024 10:40 AM EDT Note Date & Type Note Facility 04-03-2024 Telephone encount er Note Prescription Refill Information The patient has been identified by name and date of : Yes Caregiver verified no other encounters exist for this prescription request: Yes Caregiver confirmed with patient/requestor that no other refills are due, in the near future, with this provider at this time: Yes The last office visit in the department: 10/17/23 Does the patient have a future office visit with this provider/department: Yes 04/18/24 Requested Prescriptions Pending Prescriptions Disp Refills metFORMIN (GLUCOPHAGE) 500 mg tablet 180 tablet 1 Sig: Take 1 tablet by mouth two times a day with meals. Gail Montoya April 03, 2024 11:21 AM [facility] 04-03-2024 Miscellaneous Notes Formattin g of this note is different from the original. Prescription Refill Information The patient has been identified by name and date of : Yes Caregiver verified no other encounters exist for this prescription request: Yes Caregiver confirmed with patient/requestor that no other refills are due, in the near future, with this provider at this time: Yes The last office visit in the department: 10/17/23 Does the patient have a future office visit with this provider/department: Yes 04/18/24 Requested Prescriptions Pending Prescriptions Disp Refills metFORMIN (GLUCOPHAGE) 500 mg tablet 180 tablet 1 Sig: Take 1 tablet by mouth two times a day with meals. Gail Montoya April 03, 2024 11:21 AM documented in this encounter [facility] 03-15-2024 Telephone encount er Note Prescription Refill Information The patient has been identified by name and date of : Yes Caregiver verified no other encounters exist for this prescription request: Yes Caregiver confirmed with patient/requestor that no other refills are due, in the near future, with this provider at this time: Yes The last office visit in the department: 09/2023 Does the patient have a future office visit with this provider/department: Yes Requested Prescriptions Pending Prescriptions Disp Refills levothyroxine (SYNTHROID) 50 mcg tablet 90 tablet 3 Sig: Take 1 tablet by mouth once daily. Jordyn Portillo MA March 15, 2024 10:43 AM [facility] 03-15-2024 Miscellaneous Notes Formattin g of this note is different from the original. Prescription Refill Information The patient has been identified by name and date of : Yes Caregiver verified no other encounters exist for this prescription request: Yes Caregiver confirmed with patient/requestor that no other refills are due, in the near future, with this provider at this time: Yes The last office visit in the department: 09/2023 Does the patient have a future office visit with this provider/department: Yes Requested Prescriptions Pending Prescriptions Disp Refills levothyroxine (SYNTHROID) 50 mcg tablet 90 tablet 3 Sig: Take 1 tablet by mouth once daily. Jordyn Portillo MA March 15, 2024 10:43 AM documented in this encounter [facility] 10-17-2023 Note HNO ID: [id number] Author: MIRIAN JACKSON MD Service: ? Author Type: Physician Type: Progress Notes Filed: 10/17/2023 10:56 Note Text: Subjective: Jimena Simms is a 68 year old male here for hypothyroidism, vitamin D deficiency and pre-diabetes follow up. Interval history: Started anti-hypertensive medication Previously, he had Graves disease, which has [...] night General symptoms: Fatigue: yes Energy level is fair Weight change No Change in bowel habits: No Temperature intolerance: No Pre-diabetes- last A1c was 5.9 He does more activity during summer time Vitamin D deficiency: He has not been taking vitamin D supplements REVIEW OF SYSTEMS: Answers submitted by the patient for this visit: Core Review of Systems (Submitted on 10/10/2023) Fever : No Night sweats: No Recent unintentional weight change: No Nasal Congestion: No Hearing Loss: Yes Vision Disturbance: No A cough: No Difficulty Breathing?: No Chest pain: No Irregular heartbeat: No Leg Swelling: No Nausea: No Diarrhea: No Black tarry stools: No Difficulty Urinating?: No Awaken at Night More Than Once to Urinate?: Yes Joint pain or stiffness: Yes Muscle aches: Yes Leg or Foot Discomfort at Night?: No A rash: No Dizziness: No Headaches: Yes Memory Loss: No Seizures: No ALLERGIES: ALLERGIES Allergen Reactions Phenergan [Prometha* Mental Status Change MEDICATIONS: Current Outpatient Medications on File Prior to Visit Medication Sig levothyroxine (SYNTHROID) 50 mcg tablet Take 1 tablet by mouth once daily. metFORMIN (GLUCOPHAGE) 500 mg tablet Take 1 tablet by mouth twice daily with meals. loratadine (ALAVERT ORAL) Take by mouth. pantoprazole DR (PROTONIX) 40 mg tablet Take 1 tablet by mouth once daily. Take on empty stomach, 1/2 hr before meal. PREDNISONE ORAL Take 1 tablet by mouth as needed. Lactobacillus acidophilus (FLORAJEN) 460 mg (20 billion cell) cap Take 460 mg by mouth once daily. fluticasone (FLONASE) 50 mcg/actuation nasal spray USE TWO SPRAYS IN EACH NOSTRIL ONCE DAILY. RINSE MOUTH AFTER USE meloxicam (MOBIC) 15 mg tablet Take 1 [...] daily. (Patient not taking: Reported on 10/04/2022) tiZANidine (ZANAFLEX) 2 mg tablet Take 2 mg by mouth once daily. oxyCODONE-acetaminophen (PERCOCET) 5-325 mg tablet Take 1 tablet by mouth every 4 hours as needed. No current facility-administered medications on file prior to visit. PAST MEDICAL HISTORY: PAST MEDICAL HISTORY Diagnosis Date Allergic rhinitis Appendicitis Chronic back pain 2/2 injury at work for [employer]. Seeing Dr. Augustine pain management DDD (degenerative disc disease), cervical DDD (degenerative disc disease), lumbar Environmental allergies GERD (gastroesophageal reflux disease) Graves disease seeing Dr. Jackson Hyperlipidemia Hypothyroidism Obesity (BMI 35.0-39.9 without comorbidity) Prediabetes Status post insertion of spinal cord stimulator PHYSICAL EXAM: BP 110/72 Pulse 74 Wt 100.9 kg (222 lb 7.1 oz) SpO2 96% BMI 33.82 kg/m? General:Alert and oriented x3, no acute distress Eyes: Anicteric sclera. Pupils are equally round. Extraocular motions intact Thyroid: normal size, normal texture, no palpable nodules Lungs: Breathing unlabored, clear to auscultation. No wheezing Heart regular rate and rhythm, no murmer Neuro: Gait normal. Sensation grossly intact. No focal findings Musculoskeletal: Muscular strength intact, No joint swelling Extremities without edema, no deformities Skin: no rashes/ erythema LAB: Latest Reference Range AND Units 10/04/22 09:25 04/13/23 14:49 Hemoglobin A1C 4.3 - 5.6 % 5.9 (H) 6.0 (H) Estimated Average Glucose mg/dL 123 126 Free T4 0.9 - 1.7 ng/dL 1.4 TSH 0.270 - 4.200 mIU/L 2.950 3.600 ASSESSMENT/PLAN: 1) Hypothyroidism Clinically, he appears euthyroid Continue levothyroxine 50 mcg daily Update thyroid function function Addressed his questions/concerns about Graves disease reactivation and Graves eye disease 2) (more content not included)... [facility] 10-17-2023 History of Presen t illness Narrative Subjective: Jimena Simms is a 68 year old male here for hypothyroidism, vitamin D deficiency and pre-diabetes follow up. Interval history: Started anti-hypertensive medication Previously, he had Graves disease, which has [...] night General symptoms: Fatigue: yes Energy level is fair Weight change No Change in bowel habits: No Temperature intolerance: No Pre-diabetes- last A1c was 5.9 He does more activity during summer time Vitamin D deficiency: He has not been taking vitamin D supplements REVIEW OF SYSTEMS: Answers submitted by the patient for this visit: Core Review of Systems (Submitted on 10/10/2023) Fever : No Night sweats: No Recent unintentional weight change: No Nasal Congestion: No Hearing Loss: Yes Vision Disturbance: No A cough: No Difficulty Breathing?: No Chest pain: No Irregular heartbeat: No Leg Swelling: No Nausea: No Diarrhea: No Black tarry stools: No Difficulty Urinating?: No Awaken at Night More Than Once to Urinate?: Yes Joint pain or stiffness: Yes Muscle aches: Yes Leg or Foot Discomfort at Night?: No A rash: No Dizziness: No Headaches: Yes Memory Loss: No Seizures: No ALLERGIES: ALLERGIES Allergen Reactions Phenergan [Prometha* Mental Status Change MEDICATIONS: Current Outpatient Medications on File Prior to Visit Medication Sig levothyroxine (SYNTHROID) 50 mcg tablet Take 1 tablet by mouth once daily. metFORMIN (GLUCOPHAGE) 500 mg tablet Take 1 tablet by mouth twice daily with meals. loratadine (ALAVERT ORAL) Take by mouth. pantoprazole DR (PROTONIX) 40 mg tablet Take 1 tablet by mouth once daily. Take on empty stomach, 1/2 hr before meal. PREDNISONE ORAL Take 1 tablet by mouth as needed. Lactobacillus acidophilus (FLORAJEN) 460 mg (20 billion cell) cap Take 460 mg by mouth once daily. fluticasone (FLONASE) 50 mcg/actuation nasal spray USE TWO SPRAYS IN EACH NOSTRIL ONCE DAILY. RINSE MOUTH AFTER USE meloxicam (MOBIC) 15 mg tablet Take 1 [...] daily. (Patient not taking: Reported on 10/04/2022) tiZANidine (ZANAFLEX) 2 mg tablet Take 2 mg by mouth once daily. oxyCODONE-acetaminophen (PERCOCET) 5-325 mg tablet Take 1 tablet by mouth every 4 hours as needed. No current facility-administered medications on file prior to visit. PAST MEDICAL HISTORY: PAST MEDICAL HISTORY Diagnosis Date Allergic rhinitis Appendicitis Chronic back pain 2/2 injury at work for [employer]. Seeing Dr. Augustine pain management DDD (degenerative disc disease), cervical DDD (degenerative disc disease), lumbar Environmental allergies GERD (gastroesophageal reflux disease) Graves disease seeing Dr. Jackson Hyperlipidemia Hypothyroidism Obesity (BMI 35.0-39.9 without comorbidity) Prediabetes Status post insertion of spinal cord stimulator PHYSICAL EXAM: BP 110/72 Pulse 74 Wt 100.9 kg (222 lb 7.1 oz) SpO2 96% BMI 33.82 kg/m General:Alert and oriented x3, no acute distress Eyes: Anicteric sclera. Pupils are equally round. Extraocular motions intact Thyroid: normal size, normal texture, no palpable nodules Lungs: Breathing unlabored, clear to auscultation. No wheezing Heart regular rate and rhythm, no murmer Neuro: Gait normal. Sensation grossly intact. No focal findings Musculoskeletal: Muscular strength intact, No joint swelling Extremities without edema, no deformities Skin: no rashes/ erythema LAB: Latest Reference Range & Units 10/04/22 09:25 04/13/23 14:49 Hemoglobin A1C 4.3 - 5.6 % 5.9 (H) 6.0 (H) Estimated Average Glucose mg/dL 123 126 Free T4 0.9 - 1.7 ng/dL 1.4 TSH 0.270 - 4.200 mIU/L 2.950 3.600 ASSESSMENT/PLAN: 1) Hypothyroidism Clinically, he appears euthyroid Continue levothyroxine 50 mcg daily Update thyroid function function Addressed his questions/concerns about Graves disease reactivation and Graves eye disease 2) Pre-diabetes: Update an A1c 3) Vitamin D deficiency Last Vitamin D level was optimal Patient is off vitamin D supplements I will send him a message in my chart once the lab results become available Follow up in 6 months per patient preference Mirian Jackson MD documented in this encounter [facility] 04-06-2023 Note HNO ID: [id number] Author: Mirian Jackson MD Service: ? Author Type: Physician Type: [...] back pain 2/2 injury at work for [employer]. Seeing Dr. Augustine pain management DDD (degenerative disc disease), cervical DDD (degenerative disc disease), lumbar Environmental allergies GERD (gastroesophageal reflux disease) Graves disease seeing Dr. Jackson Hyperlipidemia Hypothyroidism Obesity (BMI 35.0-39.9 without comorbidity) [...] mcg daily Updat (more content not included)... [facility] 04-06-2023 Instructions Mirian Jackson MD - 04/06/2023 9:47 AM EDT Restart levothyroxine 50 mcg daily Get labs drawn in 7-10 days I will send you a message in my chart once the lab results become available Follow up in 6 months documented in this encounter [facility] 04-06-2023 History of Presen t illness [...] back pain 2/2 injury at work for [employer]. Seeing Dr. Augustine pain management DDD (degenerative disc disease), cervical DDD (degenerative disc disease), lumbar Environmental allergies GERD (gastroesophageal reflux disease) Graves disease seeing Dr. Jackson Hyperlipidemia Hypothyroidism Obesity (BMI 35.0-39.9 without comorbidity) [...] available Follow up in 6 months Mirian Jackson MD documented in this encounter [facility] 10-04-2022 Instructions Mirian Jackson MD - 10/04/2022 8:50 AM EDT Get labs drawn. I will send you a message in my chart once the lab results become available Follow up in 6 months documented in this encounter [facility] 10-04-2022 History of Presen t illness [...] injury at work for [employer]. Seeing Dr. Augustine pain management DDD (degenerative disc disease), cervical DDD (degenerative disc disease), lumbar Environmental allergies GERD (gastroesophageal reflux disease) Graves disease seeing Dr. 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 VERBALIZED UNDERSTANDING OF INSTRUCTIONS AND WRITTEN INSTRUCTIONS [...] checked in for procedure. IV started. 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 Will continue to monitor. documented in this encounter [employer] Phone: 06-16-2022 Hospital Discharg e instructions Jessica Jain RN - 06/16/2022 12:09 PM EST [facility] [phone] Post Pain Management Injection PATIENT INSTRUCTIONS: -Resume [...] lasts more than [address] Augustine. -Muscle stiffness, soreness at puncture site (soreness may last 2-4 days). DIABETIC PATIENTS ONLY: -Increased glucose levels in all diabetic patients who have received a steroid injection. -Monitor blood sugars frequently for the first 5 days following procedure. -Adjust medication accordingly. 6) TO REACH DR. AUGUSTINE: Call [phone] ADDITIONAL INSTRUCTIONS: Follow-up as scheduled or call for appointment if not already done. Patients taking Coumadin may resume taking as before the procedure. documented in this encounter [facility] Work Phone: 03-31-2022 History of Presen t illness [...] within the recliner. documented in this encounter [facility] [employer] Phone: 03-31-2022 Hospital Discharg e instructions Hyacinth Love RN - 03/31/2022 12:59 PM EDT [facility] [phone] Post Pain Management Injection PATIENT INSTRUCTIONS: -Resume [...] lasts more than [address] Augustine. -Muscle stiffness, soreness at puncture site (soreness may last 2-4 days). DIABETIC PATIENTS ONLY: -Increased glucose levels in all diabetic patients who have received a steroid injection. -Monitor blood sugars frequently for the first 5 days following procedure. -Adjust medication accordingly. 6) TO REACH DR. AUGUSTINE: Call [phone] ADDITIONAL INSTRUCTIONS: Follow-up as scheduled or call for appointment if not already done. Patients taking Coumadin may resume taking as before the procedure. documented in this encounter [facility] Work Phone: 12-30-2021 Instructions Mirian Jackson MD - 12/30/2021 3:38 PM EDT Get labs drawn I will send you a message in my chart once the lab results become available Follow up to be determined based on the results documented in this encounter [facility] 12-30-2021 History of Presen t illness [...] injury at work for [employer]. Seeing Dr. Augustine pain management DDD (degenerative disc disease), cervical DDD (degenerative disc disease), lumbar Environmental allergies GERD (gastroesophageal reflux disease) Graves disease seeing Dr. Jackson Hyperlipidemia Hypothyroidism Obesity (BMI 35.0-39.9 without comorbidity) [...] be determined based on lab results Mirian Jackson MD 12/30/21 documented in this encounter [facility] 04-28-2020 History of Presen t illness Narrative Radiology Service Progress Note PATIENT NAME: Jimena Simms DATE OF SERVICE: April 28, 2020 TIME: 9:02 AM PATIENT IDENTITY VERIFICATION COMPLETED USING TWO (2) IDENTIFIERS: Name and Date of confirmed by patient verbally. FALL SCREENING: Has the patient had 2 falls in the last year or 1 fall with injury or currently using an Ambulatory Assistive Device (Walker, Cane, Wheelchair, Crutches, etc.)? No PATIENT GENDER DATA: Male PATIENT RELEVANT IMPLANT DATA REVIEWED: Yes RADIOLOGY DEPARTMENT: General X-ray: Exam(s) Completed: Chest X-Ray PERIPHERAL IV DATA: Not applicable SIGNED BY: RT Jc April 28, 2020 9:02 AM documented in this encounter [facility] Evaluation note Diagnosis Hypothyroidism, unspecified type- Primary Pre-diabetes Other abnormal glucose Obesity (BMI 30.0-34.9) Obesity, unspecified Vitamin D deficiency Unspecified vitamin D deficiency [facility] Diagnosis Lumbar radiculopathy Thoracic or lumbosacral neuritis or radiculitis, unspecified documented in this encounter [facility] [employer] Phone: evaluation note* Diagnosis Hypothyroidism, unspecified type- Primary Pre-diabetes Other abnormal glucose Obesity, Class II, BMI 35-39.9 Obesity, unspecified Vitamin D deficiency Unspecified vitamin D deficiency Elevated BP without diagnosis of hypertension Snoring Other dyspnea and respiratory abnormality documented in this encounter [facility] note* Diagnosis Hypothyroidism, unspecified type- Primary Prediabetes Other abnormal glucose Obesity, Class II, BMI 35-39.9 Obesity, unspecified Vitamin D deficiency Unspecified vitamin D deficiency documented in this encounter [facility] note* Diagnosis Hypothyroidism, unspecified type- Primary Prediabetes Other abnormal glucose documented in this encounter [facility] note* Diagnosis Hypothyroidism, unspecified type documented in this encounter [facility] note* Diagnosis Chest pressure Other chest pain SOB (shortness of breath) Shortness of breath documented in this encounter [facility] Summary Purpose Family History No Family History Records FoundNo Family History Records FoundNo Family History Records FoundNo Family History Records FoundNo Family History Records Found Advance Directives Documents on File Type Date Recorded Patient Health And Safety Representative Expl anation Advance Directive(s) 09/10/2019 2:25 PM Advance Directive(s) 06/10/2017 10:40 AM Additional Source Comments (unrecognized sect ion and content) No Status Records FoundNo Status Records FoundNo Status Records FoundNo Status Records FoundNo Status Records Found INFORMATION SOURCE (unrecogn ized section and content) DATE CREATED AUTHOR 12/15/2017 [facility] DATE CREATED AUTHOR AUTHOR'S ORGANIZ ATION 12/19/2017 [facility] DATE CREATED AUTHOR AUTHOR'S ORGANIZ ATION 10/18/2023 [facility] DATE CREATED AUTHOR AUTHOR'S ORGANIZ ATION 10/18/2023 [facility] DATE CREATED AUTHOR AUTHOR'S ORGANIZ ATION 01/25/2024 [facility] Source Comments (unrecognize d section and content) In the event this informatio n is protected by the Federal Confidentiality of Alcohol and Drug Abuse Patient Records regulations: The Federal rules restrict any use of the information to criminally investigate or prosecute any alcohol or drug abuse patient.[facility] the event this information is protected by the Federal Confidentiality of Alcohol and Drug Abuse Patient Records regulations: The Federal rules restrict any use of the information to criminally investigate or prosecute any alcohol or drug abuse patient.[facility] the event this information is protected by the Federal Confidentiality of Alcohol and Drug Abuse Patient Records regulations: The Federal rules restrict any use of the information to criminally investigate or prosecute any alcohol or drug abuse patient.[facility] the event this information is protected by the Federal Confidentiality of Alcohol and Drug Abuse Patient Records regulations: The Federal rules restrict any use of the information to criminally investigate or prosecute any alcohol or drug abuse patient.[facility] the event this information is protected by the Federal Confidentiality of Alcohol and Drug Abuse Patient Records regulations: The Federal rules restrict any use of the information to criminally investigate or prosecute any alcohol or drug abuse patient.[facility] the event this information is protected by the Federal Confidentiality of Alcohol and Drug Abuse Patient Records regulations: The Federal rules restrict any use of the information to criminally investigate or prosecute any alcohol or drug abuse patient.[facility] the event this information is protected by the Federal Confidentiality of Alcohol and Drug Abuse Patient Records regulations: The Federal rules restrict any use of the information to criminally investigate or prosecute any alcohol or drug abuse patient.[facility] the event this information is protected by the Federal Confidentiality of Alcohol and Drug Abuse Patient Records regulations: The Federal rules restrict any use of the information to criminally investigate or prosecute any alcohol or drug abuse patient.[facility] Reason for Visit (unrecogniz ed section and content) Reason Comments Follow Up Specialty Diagnoses / Procedures Referred By Contac t Referred To Contact Diagnoses Radiculopathy, lumbar region Radiculopathy, lumbar region Procedures MT NJX AA&/STRD TFRML EPI LUMBAR/SACRAL 1 LEVEL CHG FLUOR NEEDLE/CATH SPINE/PARASPINAL DX/THER Robin Jaramillo MD [address] [facility], [address] [place] [address] Referral ID Status Reason Start Date Expiration Date Visits Re quested Visits Authorized [id number] 03/28/2022 1 1 Specialty Diagnoses / Procedures Referred By Contac t Referred To Contact Diagnoses Lumbar radiculitis Lumbar radiculitis [M54.16] Procedures MT NJX DX/THER SBST INTRLMNR LMBR/SAC W/IMG GDN MIDLINE LUMBAR FIVE SACRAL ONE EPIDURAL STEROID INJECTION SITE CONFIRMED BY FLUOROSCOPY Robin Augustine MD [address] [facility], [address] [place] [address] [facility] [address] [place] [address] Referral ID Status Reason Start Date Expiration Date Visits Re quested Visits Authorized [id number] 1 1 Reason Comments Thyroid Problem Reason Comments Follow Up Established Patient Reason Onset Date Comments Refill Request 03/14/2024 Reason Onset Date Comments Refill Request 04/03/2024 Care Teams (unrecognized sec tion and content) Research Subject Relationship Specialty Start Date End Date Noemi Blood MD [address] [place] [address] PCP - General Family Practice 03/28/17 Research Subject Relationship Specialty Start Date End Date Noemi Blood MD [address] [place] [address] PCP - General Family Practice 03/28/17 Research Subject Relationship Specialty Start Date End Date Noemi Blood MD PCP - General Family Medicine 06/09/17 Research Subject Relationship Specialty Start Date End Date Noemi Blood MD PCP - General Family Medicine 06/09/17 Research Subject Relationship Specialty Start Date End Date Noemi Blood MD [address] [place] [address] PCP - General Family Medicine 03/28/17 Research Subject Relationship Specialty Start Date End Date Noemi Blood MD [address] [place] [address] PCP - General Family Medicine 03/28/17 Research Subject Relationship Specialty Start Date End Date Pcp, No, [employer] 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[employer]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 PCP - [facility] 08/31/23 03/25/24 Research Subject Relationship Specialty Start Date End Date Pcp, No, [employer] AGENT PCP - General Adult Health 08/31/23 03/25/24 Research Subject Relationship Specialty Start Date End Date Noemi Blood MD [address] [place] [address] PCP - General Family Medicine 03/28/17 08/30/23 Scheduled Active and Recently Administ ered Medications (unrecognized section and content) Medication Order 03/29/2022 03/30/2022 03/31/2022 lactated ringers infusion (COMPLETED) IntraVENous, at 50 mL/hr, ONCE, On Mary Jo 03/31/22 at 1215, For 1 dose 1158 (New Bag - Prov ider: Roslyn Philip RN) lidocaine 1 % (PF) injection 0.1 mL (COMPLETED) 0.1 mL, IntraDERmal, ONCE, 1 dose, On Mary Jo 03/31/22 at 1215 1157 (Given - Provid er: Roslyn Philip RN) PRN Medication Order 03/29/2022 03/30/2022 03/31/2022 betamethasone acetate-betamethasone sodium phosphate (CELESTONE) 9 mg, lidocaine 1 % 2.5 mL (CANCELED) PRN, Starting on Mary Jo 03/31/22 at 1248, Intra-op 1248 (Given - Provid er: Robin Augustine MD) iohexol (OMNIPAQUE 240) IV/PO solution (CANCELED) PRN, Starting on Mary Jo 03/31/22 at 1248, Until Mary Jo 03/31/22 at 1254, Intra-op 1248 (Given - Provid er: Robin Augustine MD) lidocaine PF 1 % injection (CANCELED) PRN, Starting on Mary Jo 03/31/22 at 1248, Until Mary Jo 03/31/22 at 1254, Intra-op 1248 (Given - Provid er: Robin Augustine MD) midazolam (VERSED) injection (CANCELED) PRN, Starting [...] 1148 (New Bag - Prov ider: Laura Gonzalez RN)1318 (Stopped - Provider: Laura Gonzalez RN) PRN Medication Order 06/14/2022 06/15/2022 06/16/2022 betamethasone acetate-betamethasone sodium phosphate (CELESTONE) 9 mg, lidocaine 1 % 1.5 mL (CANCELED) PRN, Starting on Mary Jo 06/16/22 at 1253, Intra-op 1253 (Given - Provid er: Robin Augustine MD) iohexol (OMNIPAQUE 240) IV/PO solution (CANCELED) PRN, Starting on Mary Jo 06/16/22 at 1252, Until Mary Jo 06/16/22 at 1256, Intra-op 1252 (Given - Provid er: Robin Augustine MD) lidocaine PF 1 % injection (CANCELED) PRN, Starting on Mary Jo 06/16/22 at 1255, Until Mary Jo 06/16/22 at 1256, Intra-op 1253 (Given - Provid er: Robin Augustine MD) midazolam (VERSED) injection (CANCELED) PRN, Starting on Mary Jo 06/16/22 at 1251, Until Mary Jo 06/16/22 at 1256, Intra-op 1251 (Given - Provid er: Cristina Bernal RN) No Frequency Medication Order 06/14/2022 06/15/2022 06/16/2022 betamethasone acetate-betamethasone sodium phosphate (CELESTONE) 6 (3-3) MG/ML injection 1 dose, Starting on Mary Jo 06/16/22 at 1235, Until Mon06/17/22 at 0044, Cristina Bernal: cabinet overrideGabe Lorraine: cabinet override 1245 (Due) midazolam (VERSED) 2 MG/2ML injection 1 dose, Starting on Mary Jo 06/16/22 at 1236, Until Mon06/17/22 at 0044, Cristina Bernal: cabinet overrideGabe Lorraine: cabinet override 1245 (Due) FOR RECORDS PERTAINING [...] BE BASED ON THE PRIMARY CLINICAL RECORDS. [facility] [employer] [facility]. provides no warranty or guarantee of the accuracy or completeness of information in this document.
[2024-04-16 12:50] LABS: PSA,Total - Annual Screen 0.76 ng/mL (0.00-4.00)
== END | disposition home or self-care (01) ==
LOC: MTLAB 10:51
PROVIDERS: PCP Family Medicine; Referring Provider Nurse Practitioner Family; Visit Provider Nurse Practitioner Family
DX: Z12.5 Encounter for screening for malignant neoplasm of prostate (principal)
CPT/HCPCS: 36415; 84153; G0103

== ENCOUNTER → 2024-09-04 | Outpatient (CLI) | payer MEDICARE, SELFPAY ==
[2024-09-04 12:21] LABS: Absolute Lymphocyte Count 1.47 X10^3/uL (0.83-4.51); Absolute Neutrophil Count 4.2 X10^3/uL (2.0-7.7); Basophil# 0.04 X10^3/uL; Basophil% 0.6 % (0-1); Eosinophil# 0.31 X10^3/uL; Eosinophils% 4.8 % (0-5); Hematocrit 42.2 % (40-54); Lymphocyte # 1.47 X10^3/ul (0.83-4.51); Lymphocyte % 22.8 % (19-41); Mean Corp Hgb Conc 33.2 g/dL (32-36); Mean Corpuscular Hgb 29.2 pg (27.0-32.0); Mean Corpuscular Volume 88.1 fL (80-94); Mean Platelet Vol. 9.4 fl (6.2-12.0); Monocyte# 0.44 X10^3/uL; Monocyte% 6.8 % (0-10); NRBC Flagged by Analyzer 0 % (0-5); Neutrophil # 4.18 X10^3/uL (2.7-7.7); Neutrophil % 64.8 % (47-70); Platelet Count 278 K/mm3 (150-450); RBC Distribution Width CV 13.6 % (11.6-14.6); Red Blood Count 4.79 M/mm3 (4.6-6.2); White Blood Count 6.5 K/mm3 (4.4-11.0)
[2024-09-04 12:41] VITALS: BP 162/93; PULSE 84; RESP 18; TEMP 36.5; O2SAT 96; BMI 30.8
--- NOTE | 2024-09-04 12:45 | RAD_ITS ---
PROCEDURE: LUMBAR MYELOGRAM REASON FOR EXAM: Chronic low back pain. Prior lumbar surgery. TECHNIQUE: The procedure as well as the benefits and possible complications including infection and bleeding were explained to the patient. Informed consent was obtained. The patient was in the prone position. The overlying skin was prepped and draped in the usual sterile fashion. Following local anesthetic application, puncture at the L3-L4 level was performed. Clear CSF fluid was seen. Following this, 10 cc of Isovue M 200 was injected intrathecally. Images were obtained. A CT scan will follow. COMPARISON: None. FINDINGS: The patient is status post intrapedicular screw and meenu fixation at the L3-L4 and L4-L5 levels with prosthetic disc placement. Marked degree of disc space narrowing at the T12-L1, L1-L2 and L2-L3 levels. There is evidence of spinal stenosis as well as bilateral neural foraminal stenosis at the L1-L2 and L2 L3 levels. CT scan will follow. RAD/Lumbar Myelogram IMPRESSION: Spinal and bilateral neural foraminal stenosis at the L1-L2 and L2-L3 levels. CT scan of the lumbar spine will follow. The patient tolerated the procedure well. Reading Location: [facility]
[2024-09-04] MEDS: Lidocaine 2% (5ml sdv) 5 ML VIAL.MPF INFILT (13:05)
--- NOTE | 2024-09-04 13:40 | CT_ITS ---
PROCEDURE: SPINE LUMBAR WITH intrathecal contrast administration. REASON FOR EXAM: Chronic low back pain. Prior lower back fusion. History of spinal cord stimulator placement. . TECHNIQUE: Lumbar spine CT with intrathecal contrast administration. CONTRAST: 10 mL of Isovue M 200 following lumbar puncture. COMPARISON: None. FINDINGS: Vertebrae: The patient is status post laminectomy and intrapedicular screw and meenu fixation at the L3-L4 and L4-L5 levels. There is evidence of bone graft placement at the level of the transverse processes bilaterally. Alignment: No spondylolisthesis. L1-2: There is a marked degree of disc space narrowing and degeneration at the L1-L2 level with anterior spondylosis. Facet joint osteoarthritis and hypertrophy worse on the right side with the marked degree of bilateral neural foraminal stenosis worse on the right side. L2-3: Marked degree of disc space narrowing and disc degeneration with spondylosis. There is evidence of facet joint osteoarthritis and hypertrophy with bilateral neural foraminal stenosis. This is severe bilaterally. L3-4: Status post fusion as described. There is evidence of a prosthetic disc. There is evidence of right neural foraminal stenosis due to hypertrophy of the facet joint and bone grafting at that site. There is deformity of the thecal sac. L4-5: Status post fusion. No significant stenosis seen. L5-S1: The disc space is well-maintained. No significant abnormality is seen. Sacrum: Visualized upper sacrum and SI joints are unremarkable. Visualized retroperitoneal structures are unremarkable. CT/Spine Lumbar WITH Contrast IMPRESSION: Status post fusion at the L3-L4 and L4-L5 levels with evidence of marked degree of bilateral neural foraminal stenosis at the L1-L2 and L2-L3 levels. One or more dose reduction techniques were used (e.g., Automated exposure contr ol, adjustment of the mA and/or kV according to patient size, use of iterative reconstruction technique). Reading Location: [place] [id number]
[2024-09-04 14:20] VITALS: BP 125/79; PULSE 68; RESP 16; O2SAT 95
== END | disposition home or self-care (01) ==
PROVIDERS: Radiology Diagnostic Radiology; PCP Family Medicine; Referring Provider Orthopaedic Surgery Orthopaedic Surgery of the Spine; Visit Provider Orthopaedic Surgery Orthopaedic Surgery of the Spine
DX: Z01.818 Encounter for other preprocedural examination (principal); M51.362 Other intervertebral disc degeneration, lumbar region with discogenic back pain and lower extremity pain; Z98.1 Arthrodesis status
CPT/HCPCS: 36415; 62304; 72132; 85025; 85610; Q9965

== ENCOUNTER → 2024-09-25 | Outpatient (CLI) | payer MEDICARE, SELFPAY ==
[2024-09-25 15:33] LABS: Amphetamine Urine NEGATIVE (<1000 ng/mL); Barbiturate Urine NEGATIVE (< 200 ng/mL); Benzodiazepine Urine NEGATIVE (< 200 ng/mL); Buprenorphine Urine NEGATIVE (< 200 ng/mL); Cocaine Urine NEGATIVE (< 300 ng/mL); Fentanyl, Urine NEGATIVE; Methadone Urine NEGATIVE (< 300 ng/mL); Opiates Urine NEGATIVE (< 300 ng/mL); Oxycodone, Urine PRESUMPTIVE POSITIVE (< 100 ng/mL); PCP Urine NEGATIVE (< 25 ng/mL); THC Urine NEGATIVE (< 50 ng/mL)
== END | disposition home or self-care (01) ==
LOC: LAB 13:23
PROVIDERS: PCP Family Medicine; Referring Provider Anesthesiology; Visit Provider Anesthesiology
DX: F11.20 Opioid dependence, uncomplicated (principal)
CPT/HCPCS: 80307

== ENCOUNTER → 2024-10-21 | Outpatient (CLI) | payer MEDICARE, SELFPAY ==
[2024-10-21 16:25] LABS: ALB/GLOB Ratio 1.7 RATIO (0.9-2.4); AST(SGOT) 20 U/L (<=37); Alanine Aminotransfer ALT/SGPT 17 U/L (<=46); Albumin, Serum 4.3 g/dL (3.4-4.8); Alkaline Phosphatase 45 U/L (40-129); Anion Gap 10 (5-15); BUN 22 mg/dL (4-19); BUN/Creat Ratio 21.2 RATIO (10-20); Calcium,Total 9.5 mg/dL (7.6-11.0); Chloride 104 mmol/L (98-108); Cholesterol 200 mg/dL (<=200); Creatinine, Serum 1.04 mg/dL (0.70-1.20); EST Glomerular Filtration Rate 77 (>60); Globulin 2.5 g/dL (2.2-4.2); Glucose 95 mg/dL (70-99); High Density Lipoprotein 49 mg/dL; Low Density Lipoprotein Calc. 122 mg/dL; Potassium 4.9 mmol/L (3.3-5.1); Protein, Total 6.8 g/dL (5.9-8.4); Sodium Level 137 mmol/L (133-145); Total Bilirubin 0.19 mg/dL (0.00-1.30); Triglycerides 147 mg/dL; Very Low Density Lipoprotein 29 mg/dL (5-40); cholesterol:hdl ratio screen 4.09
== END | disposition home or self-care (01) ==
LOC: MFPLAB 12:32
PROVIDERS: PCP Family Medicine; Referring Provider Family Medicine; Visit Provider Family Medicine
DX: I10 Essential (primary) hypertension (principal); E05.00 Thyrotoxicosis with diffuse goiter without thyrotoxic crisis or storm
CPT/HCPCS: 36415; 80053; 80061; 84443

== ENCOUNTER 2024-11-20 14:36 | Inpatient (IN) | payer MEDICARE, SELFPAY ==
--- NOTE | 2024-11-06 12:15 | PAT.ANESEVAL ---
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 When Was Last Pacemaker Check QUESTION #4 FULL TEXT: You/Your Family Experience fever (hyperthermia) with Anesthesia Last Oral Intake Last Oral intake: Last Oral Intake NPO since Meds taken in AM with sips of water? 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: PONV - pressure tank operator Female No 11/06/24 09:27 HX of Motion Sickness No 11/06/24 09:27 HX of N/V After Surgery No 11/06/24 09:27 Non-Smoker Yes 11/06/24 09:27 Duration of Surgery greater Yes 11/06/24 09:27 than 60 minutes Number of Risk Factors 2 11/06/24 09:27 PONV Score Moderate Risk 11/06/24 09:27 Height & Weight Height & Weight: Anesthesia: Height & Weight Height 5 ft 10 in 09/04/24 12:41 Respiratory Assessment Respiratory Assessment - pressure tank operator: Respiratory Tract Infection Hx - pressure tank operator Hx Respiratory Tract Infection No 11/06/24 09:27 STOP Sleep Apnea STOP Sleep Apnea - pressure tank operator: STOP Sleep Apnea - pressure tank operator Hx Hypertension Yes: controlled with med 11/06/24 09:27 Hx Sleep Apnea No 11/06/24 09:27 CPAP BIPAP Do you snore loudly (louder No 11/06/24 09:27 than talking or can be heard Do you often feel tired/ No 11/06/24 09:27 fatigued/ sleepy during daytime? Has anyone observed you stop No 11/06/24 09:27 breathing during sleep? STOP Results Negative 11/06/24 09:27 QUESTION #5 FULL TEXT : Do you snore loudly (louder than talking or can be heard through closed doors)? 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 Specify any problems Hx of Preganancy in last 3 N/A 11/06/24 09:27 Months Nurse Filling Out Transfusion [facility] 11/06/24 09:27 & Questions: Date: 11/06/24 11/06/24 09:27 Time: :11/06/24 09:27 Patient unable to answer at this time (ie. confused, unrespo /Reproduction History /Reproductive History - pressure tank operator: /Reproductive Hx- pressure tank operator Hx Now No 11/06/24 09:27 Gestational Age (in weeks): EDC: Hx Hx Para Hx Section SAB No 11/06/24 09:27 [facility] Medical History (Updated 11/06/24 @ 09:35 by Sosa Neal) Wears hearing aid Loss of hearing Wears glasses History of steroid therapy Thyroid disease Ambulates with cane Hypertension Pre-diabetes Back pain Non-smoker History of echocardiogram Cardiology follow-up encounter History of Holter monitoring GERD (gastroesophageal reflux disease) Obesity Graves' disease Hyperlipidemia Home Medications ?Medication ?Instructions ?Recorded ?Last Taken ?Type oxycodone-acetaminophen 5 mg-325 0.5 tab PO Q4H PRN PRN Pain 05/07/17 Unknown History mg tablet loratadine 10 mg disintegrating 10 mg PO QHS seasonal allergies 05/18/20 Unknown History tablet (Alavert) pantoprazole 40 mg tablet,delayed 40 mg PO QHS gerd 05/18/20 Unknown History release tizanidine 2 mg capsule 2 mg PO QHS pain 05/20/20 Unknown History levothyroxine 50 mcg tablet 50 mcg PO QDAY thyroid 08/01/24 Unknown History lisinopril 10 mg tablet 10 mg PO QHS htn 08/01/24 Unknown History metformin 500 mg tablet 500 mg PO QHS pre- diabetes 08/01/24 Unknown History ynwuywj-jssjzilcawywu-wjymfgrl 250 1 tab PO Q6H PRN headaches 11/06/24 Unknown History mg-250 mg-65 mg tablet (Excedrin Extra Strength) fluticasone propionate 50 2 spray intranasal QHS congestion 11/06/24 Unknown History mcg/actuation nasal spray,suspension (24 Hour Allergy Relief) Allergy/AdvReac Type Severity Reaction Status Date / Time promethazine (From Phenergan) AdvReac spinning Verified 11/06/24 09:21 Family History Brother Hypertension Heart disease Atrial Fib RFA Uncle CAD (coronary artery disease) maternal Myocardial infarction, Onset Age: 68 maternal Uncle CVA (cerebral vascular accident) Hypertension paternal Father Cancer lung cancer Grandmother Cancer lung Brother Heart disease Surgical History (Updated 11/06/24 @ 09:35 by Sosa Neal) Hx of appendectomy H/O hernia repair S/P insertion of spinal cord stimulator H/O arthroscopic knee surgery History of neck surgery History of back surgery History of left heart catheterization (05/08/17) Social History Smoking Status: Never smoker alcohol intake: never Audit: Pertinent Findings Pertinent Findings EKG Perinent findings: 05/27/2020. Normal sinus rhythm. 71 bpm. Echo (EF%) pertinent findings: 05/27/2020. EF 53%. PA pressure 20 mmHg. Consult pertinent findings: Cardiology 05/20/2020. 048. Rapid palpitations. Etiology unclear. Obtain echo and event monitor. Atypical chest pain. He has undergone cardiac catheterization and stress both of which have been normal in the last 3 years. No further workup at this time. Recommendation Anesthesia Recommendation Anesthesia recommendation: OPTIMIZED for anesthesia
[2024-11-07 12:00] LABS: Hemoglobin A1c 6.2 % (<=5.6)
[2024-11-07 12:21] LABS: Magnesium 2.1 mg/dL (1.5-2.2)
[2024-11-07 12:26] LABS: Hepatitis B Surface Antibody Nonreactive
[2024-11-07 12:31] LABS: HIV Nonreactive (Nonreactive); Hepatitis C Antibody Nonreactive (Nonreactive)
[2024-11-08 05:07] LABS: Hepatitis A AB, Total Negative (Negative)
[2024-11-20] VITALS (18 sets, daily range): BP systolic 83–131; BP diastolic 43–98; PULSE 76–111; RESP 16–18; TEMP 35.9–36.7; O2SAT 93–100; BMI 31.6
[2024-11-20] MEDS: Lactated Ringers 1,000 ML 15 ML IV (07:52)
[2024-11-20] MEDS: Acetaminophen 500 MG Tablet 1000 MG PO ×2 (07:53→21:44)
[2024-11-20] MEDS: Magnesium 1 GM over 15 mins IV (07:53)
--- NOTE | 2024-11-20 08:13 | PCM.PRE.AN2 ---
ASA Classification* ASA Classification ASA Classification: 3 Assessment & Plan Anesthesia* Anesthesia Assessment Anesthesia Assessment: Discussed sedation and/or anesthesia options, risks, benefits, and alternatives with patient/parents/legal guardian/POA. Questions invited. The patient/parents/legal guardian/POA seems to understand and agrees to proceed with anesthesia plan. Reviewed the physical assessment, medical history, allergy history and patient home medications list prior to surgery/procedure/anesthetic and documented any changes. Performed airway and anesthesia risk assessments. Anesthesia Type Anesthesia Type: General History Source History Obtained from:: Patient and Chart Anesthesia Focused Assessment* Temperature: 98.1 F Pulse Rate: 76 Blood Pressure: 117/67 Respiratory Rate: 16 Pulse Ox: 100 Oxygen Delivery Method: Room Air Airway Assessment Mouth opens: >3 cm Mallampati Score: III Teeth Condition: Intact Neck Range of motion (ROM): Limited ROM Focused Labs Anesthesia Preop lab: CBC WBC 6.5 K/mm3 (4.4-11.0) 09/04/24 11:53 09/04/24 RBC 4.79 M/mm3 (4.6-6.2) 09/04/24 11:53 09/04/24 Hgb 14.0 g/dL (13.0-16.5) 09/04/24 11:53 09/04/24 Hct 42.2 % (40-54) 09/04/24 11:53 09/04/24 Plt Count 278 K/mm3 (150-450) 09/04/24 11:53 09/04/24 CHEMISTRY Potassium 4.9 mmol/L (3.3-5.1) 10/21/24 12:32 10/21/24 Sodium 137 mmol/L (133-145) 10/21/24 12:32 10/21/24 Magnesium 2.1 mg/dL (1.5-2.2) 11/07/24 09:56 11/07/24 BUN 22 mg/dL (4-19) H 10/21/24 12:32 10/21/24 Creatinine 1.04 mg/dL (0.70-1.20) 10/21/24 12:32 10/21/24 Glucose 95 mg/dL (70-99) 10/21/24 12:32 10/21/24 TSH 3.410 uIU/mL (0.300-4.200) 10/21/24 12:32 10/21/24 COAG Pre-Assessment Diagnosis/Proposed Procedure Planned Operative Procedure(s): (N/A) 360 Lumbar Fusion L1-2, L2-3, and L1-2, L2-3, L3-4 and L4-5 revision posterior instrumentation possible removal of hardware Anesthesia History 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 When Was Last Pacemaker Check QUESTION #4 FULL TEXT: You/Your Family Experience fever (hyperthermia) with Anesthesia Last Oral Intake Last Oral intake: Last Oral Intake NPO since 05:00 11/20/24 07:37 Meds taken in AM with sips of No 11/20/24 07:37 water? Meds patient instructed to take am of surgery PONV PONV - technical solutions consultant: PONV - technical solutions consultant Female No 11/06/24 09:27 HX of Motion Sickness No 11/06/24 09:27 HX of N/V After Surgery No 11/06/24 09:27 Non-Smoker Yes 11/06/24 09:27 Duration of Surgery greater Yes 11/06/24 09:27 than 60 minutes Number of Risk Factors 2 11/06/24 09:27 PONV Score Moderate Risk 11/06/24 09:27 Height & Weight Height & Weight: Anesthesia: Height & Weight Height 5 ft 10 in 11/20/24 07:37 Weight: 99.972 kg 11/20/24 07:37 Body Mass Index (BMI) 31.6 11/20/24 07:37 Respiratory Assessment Respiratory Assessment - technical solutions consultant: Respiratory Tract Infection Hx - technical solutions consultant Hx Respiratory Tract Infection No 11/06/24 09:27 STOP Sleep Apnea STOP Sleep Apnea - technical solutions consultant: STOP Sleep Apnea - technical solutions consultant Hx Hypertension Yes: controlled with med 11/06/24 09:27 Hx Sleep Apnea No 11/06/24 09:27 CPAP BIPAP Do you snore loudly (louder No 11/06/24 09:27 than talking or can be heard Do you often feel tired/ No 11/06/24 09:27 fatigued/ sleepy during daytime? Has anyone observed you stop No 11/06/24 09:27 breathing during sleep? STOP Results Negative 11/06/24 09:27 QUESTION #5 FULL TEXT : Do you snore loudly (louder than talking or can be heard through closed doors)? 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 Specify any problems Hx of Preganancy in last 3 N/A 11/06/24 09:27 Months Nurse Filling Out Transfusion [facility] 11/06/24 09:27 & Questions: Date: 11/06/24 11/06/24 09:27 Time: 09:11/06/24 09:27 Patient unable to answer at this time (ie. confused, unrespo /Reproduction History /Reproductive History - technical solutions consultant: /Reproductive Hx- technical solutions consultant Hx Now No 11/06/24 09:27 Gestational Age (in weeks): EDC: Hx Hx Para Hx Section SAB No 11/06/24 09:27 Active Medications Active Medications: Current Medications Generic Name Dose Route Start Last Admin Trade Name Freq PRN Reason Stop Dose Admin Cefazolin Sodium 2 gm/ Sodium 110 mls @ 150 mls/hr 11/20/24 07:30 Chloride IV 11/20/24 08:13 INTRAOP ONE Lactated Ringer's 1,000 mls @ 15 mls/hr 11/20/24 07:15 11/20/24 07:52 IV 15 mls/hr .Q48H DAMION Administration Insulin Human Lispro 1 - 6 unit 11/20/24 07:30 Insulin Lispro 100 Unit/Ml Insuln.Pen SC 11/20/24 18:00 Q4H PRN PRN BG>/= 180, SEE PROTOCOL Protocol PFSH Medical History Wears hearing aid Loss of hearing Wears glasses History of steroid therapy Thyroid disease Ambulates with cane Hypertension Pre-diabetes Back pain Non-smoker History of echocardiogram Cardiology follow-up encounter History of Holter monitoring GERD (gastroesophageal reflux disease) Obesity Graves' disease Hyperlipidemia Home Medications ?Medication ?Instructions ?Recorded ?Last Taken ?Type oxycodone-acetaminophen 5 mg-325 0.5 tab PO Q4H PRN PRN Pain 05/07/17 11/19/24 20:00 History mg tablet loratadine 10 mg disintegrating 10 mg PO QHS seasonal allergies 05/18/20 11/19/24 20:00 History tablet (Alavert) pantoprazole 40 mg tablet,delayed 40 mg PO QHS gerd 05/18/20 11/19/24 20:00 History release tizanidine 2 mg capsule 2 mg PO QHS pain 05/20/20 11/19/24 20:00 History levothyroxine 50 mcg tablet 50 mcg PO QDAY thyroid 08/01/24 11/19/24 20:00 History lisinopril 10 mg tablet 10 mg PO QHS htn 08/01/24 11/19/24 20:00 History metformin 500 mg tablet 500 mg PO QHS pre- diabetes 08/01/24 11/19/24 20:00 History jcahuef-rfbmxnckiexnx-ixyebncl 250 1 tab PO Q6H PRN headaches 11/06/24 11/13/24 History mg-250 mg-65 mg tablet (Excedrin Extra Strength) fluticasone propionate 50 2 spray intranasal QHS congestion 11/06/24 11/19/24 20:00 History mcg/actuation nasal spray,suspension (24 Hour Allergy Relief) Allergy/AdvReac Type Severity Reaction Status Date / Time promethazine (From Phenergan) AdvReac spinning Verified 11/20/24 07:30 Family History Brother Hypertension Heart disease Atrial Fib RFA Uncle CAD (coronary artery disease) maternal Myocardial infarction, Onset Age: 68 maternal Uncle CVA (cerebral vascular accident) Hypertension paternal Father Cancer lung cancer Grandmother Cancer lung Brother Heart disease Surgical History Hx of appendectomy H/O hernia repair S/P insertion of spinal cord stimulator H/O arthroscopic knee surgery History of neck surgery History of back surgery History of left heart catheterization (05/08/17) Social History Smoking Status: Never smoker alcohol intake: never Review of Systems (Anesthesia) ROS Narrative System reviewed and no additional complaints, except as documented.
[2024-11-20 08:24] LABS: Bedside Glucose 101 mg/dL (74-106)
--- NOTE | 2024-11-20 08:42 | PCM.HP.BLA ---
History and Physical Date of Admission: 11/20/24 MR#: [id number] Acct: [id number] Name: JIMENA GUAJARDO Rep #: [id number] : 1955 Provider: Dr. Mayank Figueroa MD Age/Sex: 69/M Location: [facility] [place] Status: Signed Intake Vital Signs 09/05/2511:41 11/07/2513:45 Height 5 ft 10 in 5 ft 10 in Weight: 215 lb BMI 30.8 Intake Visit Reasons: lumbar spine Chief Complaint: Pre op Accompanied by: Self Is patient in pain?: Yes Pain scale (1-10): 9 Allergies promethazine (From Phenergan) Adverse Reaction (Verified 11/07/24 14:49) spinning Medications ?Medication ?Instructions ?Recorded ?Confirmed ?Type oxycodone-acetaminophen 5 mg-325 0.5 tab PO Q4H PRN PRN Pain 05/07/17 11/07/24 History mg tablet loratadine 10 mg disintegrating 10 mg PO QHS seasonal allergies 05/18/20 11/07/24 History tablet (Alavert) pantoprazole 40 mg tablet,delayed 40 mg PO QHS gerd 05/18/20 11/07/24 History release tizanidine 2 mg capsule 2 mg PO QHS pain 05/20/20 11/07/24 History levothyroxine 50 mcg tablet 50 mcg PO QDAY thyroid 08/01/24 11/07/24 History lisinopril 10 mg tablet 10 mg PO QHS htn 08/01/24 11/07/24 History metformin 500 mg tablet 500 mg PO QHS pre- diabetes 08/01/24 11/07/24 History efkwxzq-exnspcgbdkrha-qxrpbzgq 250 1 tab PO Q6H PRN headaches 11/06/24 11/07/24 History mg-250 mg-65 mg tablet (Excedrin Extra Strength) fluticasone propionate 50 2 spray intranasal QHS congestion 11/06/24 11/07/24 History mcg/actuation nasal spray,suspension (24 Hour Allergy Relief) Have you fallen in the past year?: No PFSH Medical History Wears hearing aid Loss of hearing Wears glasses History of steroid therapy Thyroid disease Ambulates with cane Hypertension Pre-diabetes Back pain Non-smoker History of echocardiogram Cardiology follow-up encounter History of Holter monitoring GERD (gastroesophageal reflux disease) Obesity Graves' disease Hyperlipidemia Surgical History Hx of appendectomy H/O hernia repair S/P insertion of spinal cord stimulator H/O arthroscopic knee surgery History of neck surgery History of back surgery History of left heart catheterization (05/08/17) Family History Brother Hypertension Heart disease Atrial Fib RFAUncle CAD (coronary artery disease) maternal Myocardial infarction, Onset Age: 68 maternalUncle CVA (cerebral vascular accident) Hypertension paternalFather Cancer lung cancerGrandmother Cancer lungBrother Heart disease Social History Smoking Status: Never smoker alcohol intake: never HPI lumbar spine Details: This documentation accurately reflects the service provided and the decisions made by me, Dr. Mayank Figueroa MD 11/07/24 6523. Part of today?s visit was documented by Viktor Gibbs MA, acting as scribe. JIMENA GUAJARDO is a 69 year old M here today for pre op. Patient states that he is still having moderate to severe pain. He hasn't really done anything today. Patient states that he hasn't had any recent injections since his last appointment with us. He says that he did establish care with pain management with Dr. Hyde. He is noticing some right upper extremity pain and weakness which she is attributing to his right shoulder. He has had prior C3-7 ACDF based on prior imaging. No cervical recent imaging available. 09/20/24: JIMENA GUAJARDO is a 69 year old M here today for lumbar spine CT review. Patient states he is having quite a bit of pain today. Patient ambulates with a walking cane today and he tends to use it when it is bothering him the most. He doesn't need it much when he is inside his house as he can use the wall or objects to grab onto. He states the pain is not any better. He states his right foot really seems to bother him and it drags. This seems to get worse throughout the day. He states his legs are very weak and stairs are very difficult for him. He states going up the stairs is more difficult than going down. He states he has to be very careful when ambulating. Patient will take oxycodone and a muscle relaxer before bed to help him sleep at night. Recently he has had to take an oxycodone later in the day as well due to his pain being so bad. He was unable to have the MRI due to his spinal cord stimulator. He reports the spinal cord stimulator no longer helps with his pain. He states his last injection with pain management 6 months ago and he reports it was not helpful. 08/01/2024: JIMENA GUAJARDO is a 68 year old M here today NEW patient for low back pain. He has been seeing Dr. Carlos Valle in [place] for a a few years. He states that his pain is at L1-2. He did have a CT scan of his lumbar spine at [facility] and was unable to get a disc. He has pain having for 20+ years but this pain at L1-2 started in 2019. He states that he gets pain that can radiate down both legs but primarily on the left. It is hard for him to go up or down steps as it causes his pain and he has noticed over the past few months that his legs have gotten weaker. When he goes up steps he has to do 1 at a time. He does get numbness and tingling at different times that seems to be mainly in the right leg. He has noticed recently that he is having a lot of trouble walking. He does not ambulate with any assistive devices. He has done PT in the past but states that he would be unable to tolerate as he is hardly able to do daily activities such as cleaning up around his house. He now has to spread activities throughout the week due to pain. He used to do stretches at home and is unable to them now due to pain. He had had L3-4, L4-5 fused back in 2000. He has had several ablations and epidural injections without relief. He states that he is unable to have an MRI because of the titanium that was used for his fusion. He denies recent xrays. He does take Percocet 5/325 for pain. Ortho Exam General General: Yes no acute distress Neurologic: Yes alert and Yes oriented x3 Psychologic: Yes reasonable and appropriate Spine SPINE TESTING CERVICAL THORACIC LUMBAR Musculoskeletal Strength 0=absent - 5=normal Details: Examination the back shows midline incisional scar in the lumbar as well as thoracic region noticed. Neurologic evaluation of lower extremity shows 5 x 5 power normal shows normal sensations in all dermatomes. There is no hyperreflexia. Coding Level of Care Code Off vis,est,level 4 Diagnoses History of lumbar fusion Z98.1 Other intervertebral disc degeneration, lumbar region with discogenic back pain and lower extremity pain M51.362 Time Spent (min) 35 Assessment and Plan Assessment and Plan (1) History of lumbar fusion: Status: Acute (2) Other intervertebral disc degeneration, lumbar region with discogenic back pain and lower extremity pain: Status: Acute Plan I can reviewed pt's CT myelogram in detail with patient. I had ordered an MRI, but the patient was unable to get this MRI as a spinal cord stimulator is overall and likely MRI noncompatible. CT myelogram shows evidence of solid fusion at L3-5 with adjacent segment degeneration at L2-3 and L1-2 causing lateral recess and foraminal stenosis. Vacuum phenomenon noticed at the L2-3 and L1-2 discs. Also reviewed previous x-rays. There is no dynamic instability and flexion-extension views. Again discussed imaging findings in detail. Patient has developed adjacent segment degeneration at the 2 levels above his prior fusion. We discussed surgical and non surgical options as well as risks, benefits and alternatives to each. He may continue to have additional injections although he has had numerous injections over the years which have no longer given him persistent relief. Additional nonsurgical treatment options additional physical therapy were also discussed which patient has tried in the past without relief. Surgical options include extension of fusion above his prior fusion from L1-3 and revision to the lower construct. We discussed that a fusion is a possibility but there is no guarantee that it would take away his pain as he has had the pain for many years and he has also had the spinal cord stimulator treatment which is no longer helping him. We discussed that pain management after surgery could be difficult because of his long-term pain and because of his tolerance to pain medication. I advised patient that I only manage pain for the first 2 weeks after surgery therefore it is important that he has a pain management doctor. All risks benefits and alternatives for the surgery were discussed in detail. The risks include infection, bleeding, need for blood transfusion, injury to nerves and vessels, hematoma, vessel injury, vascular injury, ileus, DVT, pulm embolism, pneumonia, atelectasis, cardiopulmonary event, need for further surgery, adjacent segment degeneration, hardware failure, persistent pain, persistent numbness and weakness, possible injury to spinal cord stimulator wires. Patient understands and agrees to proceed with surgery. Consent was signed.
[2024-11-20] MEDS: Cefazolin 2 GM in 0.9% Normal Saline (100mL Bag) 100 ML IV ×2 (08:58→17:22)
--- NOTE | 2024-11-20 09:14 | RAD_ITS ---
PROCEDURE: L/S SPINE MIN 4 VIEWS 11/20/2024 REASON FOR EXAM: 360 LUMBAR FUSION L1-2, L2-L3 TECHNIQUE: Fluoroscopy with 14 spot images FINDINGS: Fluoroscopy time 61.0 seconds Cumulative dose 43.34 mGy The addition of intervertebral disc spacers L1-2 and L2-3 with anterolateral anchor screw L2 and bilateral posterior fusion L1 through L3 appears anatomic and intact. Please see operative report for further detail. RAD/L/S Spine Min 4 Views IMPRESSION: Fluoroscopy as above. Reading Location: [id number]
[2024-11-20] MEDS: TRANEXAMIC ACID 1,000 MG in 0.9% Normal Saline (100mL Bag) 100 ML 440 MG IV ×2 (09:15→13:56)
[2024-11-20] MEDS: Ropivacaine 0.5% 30 ML Vial (14:19)
--- NOTE | 2024-11-20 15:03 | PCM.OPRPT ---
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, radiculopathy, stenosis with neurogenic claudication, prior L3-5 fusion Post-Operative Diagnosis: Same Surgery/Procedure Performed: L1-3 oblique lumbar interbody fusion assembler product: Yes Intelligence Research Specialist: Taina Mesa Tasks completed by faculty research assistant: Closing, Removing tissue, Hemostasis: Electrocautery and Retracting Type of Anesthesia: General RN Documented Start/Stop Times: Operation Date: 11/20/24 09:15 Case Time Into Pre-Op 11/20/24 07:08 Anesthesia Start 11/20/24 08:58 Into Room 11/20/24 08:58 Out of Pre-Op 11/20/24 08:58 Procedure Start 11/20/24 09:33 Procedure End 11/20/24 14:29 Anesthesia End 11/20/24 14:44 Out of Room 11/20/24 14:44 Into Recovery 11/20/24 14:50 Procedure Start Time: 09:33 Procedure Stop Time: 14:29 Select all DRAINS/GRAFTS/IMPLANTS that apply: Graft Graft details: Allograft cancellous bone chips, autologous bone marrow aspirate and Implanted device Implanted device details: DePuy cougar lateral lumbar interbody cage?peek Estimated Blood Loss: 100 cc Specimen collected: No Description of surgery: Preoperative diagnosis: 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 L1-2 anterolateral spinal fusion 83527 ? L2-3 anterolateral fusion 28376/51 ? L1-2 insertion of cage 11625 ? L2-3 insertion of cage 58776/51 ? Bone graft aspirate left iliac crest separate incision ? Allograft cancellous chips Attending Surgeon: Dr. Mayank Figueroa Estimated blood loss: 100 mL Anesthesia: General Complications: None Indications: Patient is a 69-year-old pleasant gentleman who has had a long history of low back pain and bilateral lower extremity radiation, difficulty walking distances. Xrays & CT myelogram revealed L1-3 disc degeneration with stenosis, prior L3-5 fusion, prior spinal cord stimulator placement. After undergoing a prolonged period of nonoperative treatment, the patient elected to undergo surgical decompression & fusion. All surgical options were discussed with the patient including anterior and posterior approaches. All risks and benefits associated with the procedure were explained to the patient. The risks include but are not limited to infection, bleeding, injury to nerves and vessels including major vessels like IVC and aorta, persistent paresthesia, persistent pain, dural tear, need for further procedures, adjacent segment degeneration, pseudoarthrosis, hardware failure, retrograde ejaculation, paralytic ileus, etc. Procedure: The patient was identified in the preoperative holding suite using Unique patient identifiers. Skin was marked, consent was reviewed, and all questions were answered. The patient was then brought back to the operative room. A surgical timeout was performed to make sure correct procedure was being done on the correct patient and all operative room staff were on the same page. General endotracheal anesthesia was then given to the patient. Browning catheter was inserted. The patient was then carefully positioned in right lateral decubitus position with the left side up on a regular OR table. Axillary roll was placed and all bony prominences were well- padded. Hip positioners were placed in the posterior buttocks and anterior sternal area. The surgical area was prepped and draped in usual fashion. Preoperative antibiotic was injected IV as preoperative antibiotic. A final timeout was then again done just before starting the procedure. A 2 inch incision oblique was taken in the left lower quadrant of the abdomen 2 fingerbreadths away from the iliac crest and the lower ribs. Sharp dissection with Bovie was carried out up to the fascia covering the external oblique. The external oblique, internal oblique and transversus abdominis muscles were split along the muscle fibers and retroperitoneal space was entered. Sponge sticks were utilized to move the bowel and peritoneum iif-wp-dhh-way and psoas muscle was exposed staying within the retroperitoneal plane. Surgientframe retractor system was positioned and the retractor blade was applied onto the psoas. The interval between psoas and midline structures was developed and appropriate retractors were placed. Once adequate interval was cleared, a disc space was identified and a marker x-ray was taken. This identified the L2-3 disc level. The prepsoas interval was then traced superiorly to expose the L1-2 disc level. Annulotomy was done with a long handled knife starting at L2-3. Pituitary was used to remove disc material. Curettes were used to prepare the endplates. Disc space spreaders were utilized to distract and increase the disc height. Near complete discectomy was performed. Trials of serially increasing sizes were used. A Jamshidi needle was used to aspirate bone marrow from the left anterior iliac crest through a separate incision and this aspirate was mixed with the allograft bone chips. A Depuy [place] cage of size of the 18 x 55 x 10 mm with 15 degrees lordosis was packed with corticocancellous allograft bone chips mixed with bone marrow aspirate. This was inserted into the L2-3 disc space. The retractors were then repositioned to expose the L1-2 disc and the procedure was repeated with complete discectomy and endplate preparation. Smaller disc distractors were also used to bluntly perform a contralateral annulotomy at both levels. Cage size was 18 x 55 x 10 mm at L1-2. AP and lateral C-arm pictures were taken to confirm good position of the cage. Some bone chips were also packed around the cages. Screw with washer was placed into the lower L2 body with a washer partially covering the cage at L2-3. Hemostasis was confirmed. The retractor blades were removed. Closure was done in layers with a continuous strand of # 1 Vicryl in all muscle layers. 2-0 Vicryl was used for subcutaneous tissue and 4-0 for Monocryl for the skin. Steri-Strips were applied and 4 x 4 gauze and Tegaderm were applied. Informatics Physician Taina Mesa PA-C. My physician customer service assistant was a vital part of this case. They were important in appropriate retraction during the case, and protection of soft tissues during the procedure. Their intimate knowledge of the case and my steps aided in safe and expedient completion of the procedure as well as appropriate position of the patient during the surgery. They were also vital in assisting with closure under my direct supervision. Surgical Findings: See operative note Complications Complications: No
--- NOTE | 2024-11-20 15:10 | PCM.OPRPT ---
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, radiculopathy, stenosis with neurogenic claudication, prior L3-5 fusion Post-Operative Diagnosis: Same Surgery/Procedure Performed: L1-3 posterior spinal instrumented fusion, removal reinsertion of prior hardware elementary summer school teacher: Yes Inspector Assemblies And Installations: Taina Mesa Tasks completed by educational assistant: Closing, Removing tissue, Implanting device, Hemostasis: Electrocautery and Retracting Type of Anesthesia: General RN Documented Start/Stop Times: Operation Date: 11/20/24 09:15 Case Time Into Pre-Op 11/20/24 07:08 Anesthesia Start 11/20/24 08:58 Into Room 11/20/24 08:58 Out of Pre-Op 11/20/24 08:58 Procedure Start 11/20/24 09:33 Procedure End 11/20/24 14:29 Anesthesia End 11/20/24 14:44 Out of Room 11/20/24 14:44 Into Recovery 11/20/24 14:50 Procedure Start Time: 09:33 Procedure Stop Time: 14:29 Select all DRAINS/GRAFTS/IMPLANTS that apply: Graft Graft details: Allograft cancellous bone chips and Implanted device Implanted device details: DePSchveyer prime pedicle screw instrumentation Estimated Blood Loss: 100 cc Specimen collected: No Description of surgery: Preoperative diagnosis: 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 L1-2 posterior spinal fusion 44358 ? L1-3 posterior pedicle screw instrumentation 92964 ? L2-3 posterior fusion 95510/51 . Removal of prior L3 pedicle screw, cutting of previous meenu below L3, 96808 . Exploration of previous fusion at L3-4, 47854 ? Allograft cancellous chips Attending Surgeon: Dr. Mayank Figueroa Estimated blood loss: 100 mL (total for entire case) Anesthesia: General Complications: None Description of procedure: After the anterior procedure was complete, the patient was then turned supine. The patient was then transferred to Sumit table in prone position. Back was prepped and draped in usual fashion. C-arm AP view was then taken. C-arm was positioned in a way that L1 was centralized and superior endplate of was parallel to the beam. Spinous process was centered between the pedicles. Midline was marked with skin marker and lateral borders of the pedicles were also marked. Skin marker was also utilized to michelet transversely across the middle of the pedicles at L1. 2 transverse paramedian incisions of 1 inch were placed. The fascia was incised vertically. Finger dissection was utilized to palpate the transverse process and facet joint. Viper Prime screws with towers were inserted and docked onto the transverse processes. This was then slowly moved medially to reach the superior articular process of L1. This was then confirmed on C-arm and then a mallet was utilized to drive the trocar into the pedicle going up to the medial wall of the pedicle on AP view. This was performed both sides. C-arm lateral view confirmed that the tip of the trocar was in the vertebral body, and the screw was advanced into the pedicle and vertebral body. This was repeated similarly at L2 bilaterally. Screw sizes were 7 x 55 mm at L1 and L2 on both sides. Vertical paramedian incision was then placed over L3 screws bilaterally. Fascia was incised vertically. Sequential dilated tubes were placed. Tubular retractor was utilized to expose the L3 screw from the previous hardware. Using instrumentation of prior hardware, the outie setscrew was removed. Using a metal cutting bur, the meenu was cut underneath the L3 screw. Using appropriate hardware removal instrumentation, L3 pedicle screw was then removed. L3-4 fusion was explored and was found to be adequate. A larger size 7.5 x 55 pedicle screw was placed on the right side at L3 and a 7.0 x 50 mm pedicle screw was placed on the left side at L3. 80 mm precontoured titanium 5.5 mm lordotic meenu on both sides were then passed through the screw extensions and reduced down to the screws with the help of Athersys instrumentation system on both sides. AP and lateral view of the C-arm showed good positioning of the screws and cages. Final tightening with the torque screwdriver was then completed. Dantete was utilized to roughen the facet joint at L1-2 and L2-3 on the left side. Cancellous allograft bone chips mixed with bone marrow aspirate were then placed over this decorticated area. Hemostasis was achieved. Closure was done in layers with 0 Vicryls for the fascia, 2-0 Vicryls for the subcutaneous tissue, and Monocryl for the skin. Dermabond was applied. Dressings were applied covered with Tegaderm. The patient was then turned supine onto a hospital bed. The patient was extubated and taken to PACU in stable condition. The patient tolerated the procedure well and no complications occurred. Depuy [place] cage & Viper Prime minimally invasive pedicle screw instrumentation system was utilized in this case. No dural tear was identified intraoperatively. I was present for the entirety of the case and performed the surgery. Roundhouse Supervisor Taina Mesa PA-C. My physician occupational therapist's assistant was a vital part of this case. They were important in appropriate retraction during the case, and protection of soft tissues during the procedure. Their intimate knowledge of the case and my steps aided in safe and expedient completion of the procedure as well as appropriate position of the patient during the surgery. They were also vital in assisting with closure under my direct supervision. Surgical Findings: See operative note Complications Complications: No
--- NOTE | 2024-11-20 16:18 | PCM.POST.ANE ---
Anesthesia: Postop Eval I Current Vital Signs Temperature: 97.3 F Pulse Rate: 92 Blood Pressure: 109/69 Respiratory Rate: 16 Pulse Ox: 98 Oxygen Delivery Method: Simple Mask Oxygen Flow Rate (L/min): 6 Assessment Airway patent: Yes Spontaneous unlabored respirations: Yes Mental status: Awake and Calm nausea: No Vomiting: No Anesthesia Complication: No Fluid Hydration Crystalloid volume administer (ml): 2,200 Total IV fluid infused: 2,200 Progress Note Anesthesia document: Postop Eval 1 completed: Yes
[2024-11-20] MEDS: Ketorolac 15 MG/ML Vial IV (17:22)
--- NOTE | 2024-11-20 19:09 | PCM.PN.HOSP ---
Reason for Visit Reason for Visit: Diagnoses Encounter for other preprocedural examination (11/20/24) Subjective Subjective Called requested with Dr. Javier for postoperative medical management. Patient planing of some back pain posteriorly and feeling of the groggy. Denies any other complaints. Objective Data Objective Data Vital Signs: Vital Signs Temp Pulse Resp BP Pulse Ox O2 Del Method O2 Flow Rate 36.1 C L 105 H 18 122/77 H 93 Nasal Cannula 4 11/20/24 17:28 11/20/24 17:28 11/20/24 17:28 11/20/24 17:28 11/20/24 17:28 11/20/24 17:28 11/20/24 17:28 Oxygen Flow Rate (L/min) 4 Oxygen Delivery Method Nasal Cannula Weight: 99.972 kg Body Mass Index (BMI) 31.6 Intake & Output: Intake and Output for Last 24 Hours 11/18/24 11/19/24 11/20/24 23:59 23:59 23:59 Intake Total 2259.75 / 2259.75 Output Total 300 / 300 Balance 1959.75 / 1959.75 Lab / Micro Data Labs: Laboratory Results - last 24 hr 11/20/24 07:29: POC Glucose 101 Micro: Microbiology 11/07/24 09:57 Swab (Method) Nasal Screen MRSA/MSSA - Final Physical Exam Const alert and no apparent distress Constitutional Narrative: Groggy. Afebrile. Nontoxic. HEENT head/scalp atraumatic Resp normal respiratory effort, no retractions, no use of accessory muscles and clear to auscultation bilaterally Cardio regular rate, regular rhythm, S1 normal heart sound and S2 normal heart sound GI GI Narrative: Distended but not on tender. Normal bowel sounds Neuro Neuro Narrative: Moves all extremities spontaneously. Assessment & Plan Assessment/Plan (1) Other intervertebral disc degeneration, lumbar region with discogenic back pain and lower extremity pain: PLAN: Status post L1-3 spinal instrumented fusion, removal of prior hardware. Management per spine surgery PLAN: Plan Hypothyroidism: Patient previously was hyperthyroid and now is hypothyroid. Continue levothyroxine. Hypertension: Continue lisinopril Diabetes mellitus type 2: A1c 6.2 from November 07. Continue metformin VTE prophylaxis: Will defer to the primary service. Think the consult. The hospital service will follow along. Please call with questions. Charges/Coding Visit Charges Inpatient E&M: 05716 Subs Hosp L2
--- NOTE | 2024-11-20 20:42 | POSTOPAN2_ITS ---
Anesthesia Postop Eval I Sum Postop Eval Completion status Anesthesia document: Postop Eval 1 completed: Yes Anesthesia Postop Eval I Summary Anesthesia Postop Eval I Summary: Anesthesia Postop Eval I: Assessment Summary Airway patent Yes 11/20/24 16:23 CONTACT LENS FITTER.[email or web address] Spontaneous unlabored Yes 11/20/24 16:23 CONTACT LENS FITTER.SKOBY respirations Mental status Awake,Calm 11/20/24 16:23 CONTACT LENS FITTER.SKOBY nausea No 11/20/24 16:23 CONTACT LENS FITTER.SKOBY Vomiting No 11/20/24 16:23 CONTACT LENS FITTER.SKOBY Anesthesia Postop Eval I: Fluid Summary Crystalloid volume administer 2,200 11/20/24 16:23 CONTACT LENS FITTER.SKOBY (ml) Colloids volume administered ( ml) Blood Product volume administered (ml) Total IV fluid infused 2,200 11/20/24 16:23 CONTACT LENS FITTER.TOIOBKaela Anesthesia Postop Eval I: Summary Notes Anesthesia Complication No 11/20/24 16:23 CONTACT LENS FITTER.TOIOBKaela Anesthesia Complication Comment: Post-operative progress note Anesthesia: Postop Eval II Evaluation Mental status: Awake and Calm Pain Level: 2 nausea: No Vomiting: No Complications Anesthesia Complication: No
--- NOTE | 2024-11-20 20:42 | PCM.POSTANE2 ---
Anesthesia Postop Eval I Sum Postop Eval Completion status Anesthesia document: Postop Eval 1 completed: Yes Anesthesia Postop Eval I Summary Anesthesia Postop Eval I Summary: Anesthesia Postop Eval I: Assessment Summary Airway patent Yes 11/20/24 16:23 DIRECTOR OF PHYSICAL EDUCATION.SKOBY Spontaneous unlabored Yes 11/20/24 16:23 DIRECTOR OF PHYSICAL EDUCATION.SKOBY respirations Mental status Awake,Calm 11/20/24 16:23 DIRECTOR OF PHYSICAL EDUCATION.SKOBY nausea No 11/20/24 16:23 DIRECTOR OF PHYSICAL EDUCATION.SKOBY Vomiting No 11/20/24 16:23 DIRECTOR OF PHYSICAL EDUCATION.SKOBY Anesthesia Postop Eval I: Fluid Summary Crystalloid volume administer 2,200 11/20/24 16:23 DIRECTOR OF PHYSICAL EDUCATION.SKOBY (ml) Colloids volume administered ( ml) Blood Product volume administered (ml) Total IV fluid infused 2,200 11/20/24 16:23 DIRECTOR OF PHYSICAL EDUCATION.TOIOBKaela Anesthesia Postop Eval I: Summary Notes Anesthesia Complication No 11/20/24 16:23 DIRECTOR OF PHYSICAL EDUCATION.TOIOBKaela Anesthesia Complication Comment: Post-operative progress note Anesthesia: Postop Eval II Evaluation Mental status: Awake and Calm Pain Level: 2 nausea: No Vomiting: No Complications Anesthesia Complication: No
[2024-11-20] MEDS: Lisinopril 10 MG Tablet PO (21:44)
[2024-11-20] MEDS: Senna/Docusate Sodium 1 Tablet 2 TABLET PO (21:44)
[2024-11-20] MEDS: Loratadine 10 MG Tablet PO (21:44)
[2024-11-20] MEDS: metFORMIN HCl 500 MG Tablet PO (21:44)
[2024-11-20] MEDS: Pantoprazole Sodium 40 MG Tablet PO (21:44)
[2024-11-20] MEDS: oxyCODONE 5 MG Tablet PO (21:54)
[2024-11-20] MEDS: Methocarbamol 500 MG Tablet 1000 MG PO (21:55)
[2024-11-21] MEDS: Cefazolin 2 GM in 0.9% Normal Saline (100mL Bag) 100 ML IV (00:37)
[2024-11-21 01:19] VITALS: BP 106/64; PULSE 104; RESP 16; TEMP 36.6; O2SAT 96
[2024-11-21] MEDS: oxyCODONE 5 MG Tablet PO ×4 (04:04→21:54)
--- NOTE | 2024-11-21 04:40 | RAD_ITS ---
PROCEDURE: LUMBAR SPINE 2 OR 3 VIEWS 11/21/2024 REASON FOR EXAM: SP LUMBAR FUSION TECHNIQUE: 2 view(s) of the lumbar spine FINDINGS: Replacement of the bilateral transpedicular screws at L3 now part of the posterior fusion L1 through L3 appears intact and anatomic. There are now intervertebral disc spacers L1-2 and L2-3 with left anterolateral anchor L2 appears intact and anatomic. Again note of L3-4 and L4-5 intervertebral disc spacers, L3-4 laminectomies and bilateral transpedicular screws L4 and L5 with bilateral vertical and a single horizontal bar. Intraspinal stimulator device. No fracture or malalignment. T12-L1 spondylosis/discogenic change. RAD/Lumbar Spine 2 or 3 Views IMPRESSION: New intervertebral disc spacers and posterior fusion with revision and L3 as ab ove. Reading Location: [id number]
[2024-11-21 05:23] VITALS: BP 112/53; PULSE 96; RESP 16; TEMP 37.1; O2SAT 93
[2024-11-21] MEDS: Levothyroxine 50 MCG Tablet PO (05:24)
[2024-11-21] MEDS: Acetaminophen 500 MG Tablet 1000 MG PO ×3 (05:24→21:55)
[2024-11-21 06:25] LABS: Hematocrit 36.8 % (40-54); Hemoglobin 12.1 g/dL (13.0-16.5); Mean Corp Hgb Conc 32.9 g/dL (32-36); Mean Corpuscular Hgb 29.7 pg (27.0-32.0); Mean Corpuscular Volume 90.4 fL (80-94); Mean Platelet Vol. 9.1 fl (6.2-12.0); Platelet Count 240 K/mm3 (150-450); RBC Distribution Width SD 46.8 fl (35.1-43.9); Red Blood Count 4.07 M/mm3 (4.6-6.2); White Blood Count 11.5 K/mm3 (4.4-11.0)
[2024-11-21 06:49] LABS: Anion Gap 10 (5-15); BUN 18 mg/dL (4-19); BUN/Creat Ratio 17.5 RATIO (10-20); Calcium,Total 8.6 mg/dL (7.6-11.0); Carbon Dioxide 23.2 mmol/L (21.0-32.0); Chloride 103 mmol/L (98-108); Creatinine, Serum 1.03 mg/dL (0.70-1.20); EST Glomerular Filtration Rate 78 (>60); Estimated Creatinine Clearance 79.09 ml/min (50-250); Glucose 166 mg/dL (70-99); Potassium 4.8 mmol/L (3.3-5.1); Sodium Level 137 mmol/L (133-145)
[2024-11-21] MEDS: Senna/Docusate Sodium 1 Tablet 2 TABLET PO ×2 (07:27→21:54)
[2024-11-21] MEDS: Ensure Surgery 237 ML LIQUID PO ×3 (07:29→17:26)
[2024-11-21 08:34] VITALS: BP 109/53; PULSE 94; RESP 16; TEMP 36.9; O2SAT 97
[2024-11-21] MEDS: Meloxicam 15 MG Tablet PO (08:50)
[2024-11-21] MEDS: Methocarbamol 500 MG Tablet 1000 MG PO ×3 (08:50→21:54)
[2024-11-21 10:58] VITALS: BP 116/68; PULSE 100; RESP 16; TEMP 36.6; O2SAT 92
--- NOTE | 2024-11-21 11:20 | CASEMGMT ---
RN CM Face to Face with patient for initial transition planning/care coordination assessment. RN CM introduced self and role at [facility]. Patient lying in bed, alert and oriented. Patient willing to participate in assessment and is able to answer all questions appropriately. Care providers, pharmacy, and demographics verified. Strata: 1 PCP: Freddy Specialists: Aretha, Endocrinology [facility]; Leonard, Pain Management [place]; Henry, ortho Preferred Pharmacy: [facility] Retail Insurance: MMO [facility] Prescription Benefit: yes Living Will/HPOA: none LNOK: Living Arrangements: Patient lives with in a 2 story home. Patient is independent and able to ambulate stairs. Transportation: self, DME/HHC: Patient has shower chair, raised toilet, cane, hip kit, walker at home. No previous HHC or SNF Patient wishes to discharge home, denies need for home health at this time. Patient states he has no further needs or concerns at this time. CM to follow for discharge planning needs that may arise. Disposition Plan: Patient to discharge home with family support and follow-up plans in place. Nevaeh HERNANDEZ, RN, CM
--- NOTE | 2024-11-21 13:25 | PN_ITS ---
Subjective Subjective Patient seen and examined. His was by his bedside. He said his back pain was well controlled. He had no other complaints. Review of systems is otherwise negative. Objective Data Objective Data Vital Signs: Vital Signs Temp Pulse Resp BP Pulse Ox O2 Del Method O2 Flow Rate 97.9 F 100 16 116/68 92 Room Air 4 11/21/24 10:58 11/21/24 10:58 11/21/24 10:58 11/21/24 10:58 11/21/24 10:58 11/21/24 10:58 11/21/24 01:19 Oxygen Flow Rate (L/min) 4 Oxygen Delivery Method Room Air Weight: 220 lb 6.4 oz Body Mass Index (BMI) 31.6 Intake & Output: Intake and Output for Last 24 Hours 11/19/24 11/20/24 11/21/24 23:59 23:59 23:59 Intake Total 2709.75 / 2709.75 1060 / 1060 Output Total 300 / 300 Balance 2409.75 / 2409.75 1060 / 1060 Lab / Micro Data 11/21/24 06:18 11/21/24 06:18 Labs: Laboratory Results - last 24 hr 11/21/24 06:18: WBC 11.5 H, RBC 4.07 L, Hgb 12.1 L, Hct 36.8 L, MCV 90.4, MCH 29.7, MCHC 32.9, RDW Std Deviation 46.8 H, RDW Coeff of Linda 14.0, Plt Count 240, MPV 9.1, Sodium 137, Potassium 4.8, Chloride 103, Carbon Dioxide 23.2, Anion Gap 10, BUN 18, Creatinine 1.03, Estim Creat Clear Calc 79.09, Est GFR (MDRD) Non-Af 78, BUN/Creatinine Ratio 17.5, Glucose 166 H, Calcium 8.6 Micro: Microbiology 11/07/24 09:57 Swab (Method) Nasal Screen MRSA/MSSA - Final Radiography Diagnostic Testing: Radiology Impression Lumbar Spine X-Ray 11/20/24 09:14 IMPRESSION: Fluoroscopy as above. Reading Location: [facility] Lumbar Spine X-Ray 11/21/24 04:40 IMPRESSION: New intervertebral disc spacers and posterior fusion with revision and L3 as above. Reading Location: [facility] Physical Exam Const alert, oriented x3, no apparent distress and well nourished General Appearance: cooperative and well developed HEENT normocephalic, head/scalp atraumatic, moist oral mucous membranes, oropharynx normal and gingiva normal Eyes PERRL and EOMs intact bilaterally Neck no lymphadenopathy and supple Lymph Lymphatic: no lymphadenopathy noted Resp normal respiratory effort, normal air movement and clear to auscultation bilaterally Cardio regular rate, regular rhythm, S1 normal heart sound, S2 normal heart sound and no murmurs GI normal to inspection, nondistended, normoactive bowel sounds, soft to palpation, non-tender and non-distended Extremity normal capillary refill, no clubbing, cyanosis or edema and no calf tenderness Skin Skin Narrative: intact dressing over lower back at site of surgery Neuro no focal motor deficits Motor Exam: general weakness Psych thought process normal, cooperative and affect normal Appearance: appropriate Assessment & Plan Assessment/Plan (1) History of lumbar fusion: (2) Graves' disease: (3) Hyperlipidemia: QUALIFIERS: Hyperlipidemia type: unspecified Qualified Code(s): E 78.5 - Hyperlipidemia, unspecified PLAN: Plan #Severe back pain and lower extremity pain due to intervertebral disc degeneration * S/p L1-L3 spinal fusion and removal of prior hardware. * Management as per spine surgery. P.o. Tylenol, oxycodone and IV morphine as needed * Incentive spirometry. Fall precautions. #Hypothyroidism: On Synthroid # Hypertension: On lisinopril. IV hydralazine prn. #Type 2 diabetes mellitus: On metformin. Insulin sliding scale. Accu-Cheks ACHS. #DVT prophylaxis: As per primary service. Currently on SCDs. Charges/Coding Visit Charges Inpatient E&M: 81060 Subs Hosp L2
--- NOTE | 2024-11-21 14:43 | PCM.PN.ORT ---
Subjective Subjective POD 1 L1-3 posterior spinal instrumented fusion, removal reinsertion of prior hardware. Patient says that his pain has been relatively well tolerated. No flatus as of yet. Says that he has walked to the bathroom multiple times during the night and has walked with therapy who has cleared him for a home discharge. Patient does say that he has some mild left sided groin pain after the surgery and that it is more painful to lay on his back. Seen with Dr. Figueroa. Objective Data Objective Data Vital Signs: Vital Signs Temp Pulse Resp BP Pulse Ox O2 Del Method O2 Flow Rate 97.9 F 100 16 116/68 92 Room Air 4 11/21/24 10:58 11/21/24 10:58 11/21/24 10:58 11/21/24 10:58 11/21/24 10:58 11/21/24 13:48 11/21/24 01:19 Oxygen Flow Rate (L/min) 4 Oxygen Delivery Method Room Air Weight: 220 lb 6.4 oz Body Mass Index (BMI) 31.6 Intake & Output: Intake and Output for Last 24 Hours 11/19/24 11/20/24 11/21/24 23:59 23:59 23:59 Intake Total 2709.75 / 2709.75 1060 / 1060 Output Total 300 / 300 Balance 2409.75 / 2409.75 1060 / 1060 Lab / Micro Data 11/21/24 06:18 11/21/24 06:18 Labs: Laboratory Results - last 24 hr 11/21/24 06:18: WBC 11.5 H, RBC 4.07 L, Hgb 12.1 L, Hct 36.8 L, MCV 90.4, MCH 29.7, MCHC 32.9, RDW Std Deviation 46.8 H, RDW Coeff of Linda 14.0, Plt Count 240, MPV 9.1, Sodium 137, Potassium 4.8, Chloride 103, Carbon Dioxide 23.2, Anion Gap 10, BUN 18, Creatinine 1.03, Estim Creat Clear Calc 79.09, Est GFR (MDRD) Non-Af 78, BUN/Creatinine Ratio 17.5, Glucose 166 H, Calcium 8.6 Micro: Microbiology 11/07/24 09:57 Swab (Method) Nasal Screen MRSA/MSSA - Final Radiography Diagnostic Testing: Radiology Impression Lumbar Spine X-Ray 11/20/24 09:14 IMPRESSION: Fluoroscopy as above. Reading Location: [facility] Lumbar Spine X-Ray 11/21/24 04:40 IMPRESSION: New intervertebral disc spacers and posterior fusion with revision and L3 as above. Reading Location: [facility] Physical Exam Narrative Neurological exam of the lower extremities shows 5x5 power. Normal sensations across all dermatomes. Physical examination of the back and belly shows surgical dressing CDI. Const alert, oriented x3 and no apparent distress Assessment & Plan Assessment/Plan (1) Status post lumbar spinal fusion: PLAN: Plan Postop day 1 L1-3 fusion and removal reinsertion of prior hardware. Patient does continue to have some mild pain however it has been well-tolerated on current regimen. Patient has not yet passed flatus we will continue clear liquids diet until he does not. Dulcolax x 1 ordered. Patient has walked with PT/OT who is cleared for home discharge. Obtained and reviewed x-rays today which show hardware and bone graft in good position. Provide restrictions of no bending, lifting, twisting. Reviewed and educated on the use of the incentive spirometer. Will round on the patient tomorrow. Patient states that on the discharge home prescriptions can be sent to the [facility] pharmacy. Patient is in agreement.
[2024-11-21 14:55] VITALS: BP 123/76; PULSE 91; RESP 16; TEMP 36.9; O2SAT 93
[2024-11-21] MEDS: Bisacodyl 5 MG Tablet 10 MG PO (18:42)
[2024-11-21 21:43] VITALS: BP 124/82; PULSE 86; RESP 18; TEMP 37.1; O2SAT 93
[2024-11-21] MEDS: Pantoprazole Sodium 40 MG Tablet PO (21:54)
[2024-11-21] MEDS: Loratadine 10 MG Tablet PO (21:54)
[2024-11-21] MEDS: metFORMIN HCl 500 MG Tablet PO (21:54)
[2024-11-21] MEDS: Lisinopril 10 MG Tablet PO (21:55)
[2024-11-22] MEDS: oxyCODONE 5 MG Tablet PO ×3 (04:23→15:01)
[2024-11-22 04:24] VITALS: BP 139/72; PULSE 85; RESP 18; TEMP 36.5; O2SAT 93
[2024-11-22] MEDS: Levothyroxine 50 MCG Tablet PO (05:49)
[2024-11-22] MEDS: Acetaminophen 500 MG Tablet 1000 MG PO ×2 (05:49→15:01)
[2024-11-22] MEDS: Methocarbamol 500 MG Tablet 1000 MG PO ×2 (09:36→15:01)
[2024-11-22] MEDS: Senna/Docusate Sodium 1 Tablet 2 TABLET PO (09:37)
[2024-11-22] MEDS: Meloxicam 15 MG Tablet PO (09:38)
[2024-11-22 09:44] VITALS: BP 134/86; PULSE 84; RESP 18; TEMP 36.6; O2SAT 96
[2024-11-22] MEDS: Bisacodyl 10 MG Suppository RC (12:46)
--- NOTE | 2024-11-22 12:51 | PCM.PN.ORT ---
Subjective Subjective POD 2 L1-3 posterior spinal instrumented fusion, removal reinsertion of prior hardware. Patient says that his pain has been relatively well tolerated. Passed flatus. Advance diet. Objective Data Objective Data Vital Signs: Vital Signs Temp Pulse Resp BP Pulse Ox O2 Del Method O2 Flow Rate 97.9 F 84 18 134/86 H 96 Room Air 4 11/22/24 09:44 11/22/24 09:44 11/22/24 09:44 11/22/24 09:44 11/22/24 09:44 11/22/24 09:46 11/21/24 01:19 Oxygen Flow Rate (L/min) 4 Oxygen Delivery Method Room Air Weight: 220 lb 6.4 oz Body Mass Index (BMI) 31.6 Intake & Output: Intake and Output for Last 24 Hours 11/20/24 11/21/24 11/22/24 23:59 23:59 23:59 Intake Total 2709.75 / 2709.75 1510 / 1510 600 / 600 Output Total 300 / 300 Balance 2409.75 / 2409.75 1510 / 1510 600 / 600 Lab / Micro Data 11/21/24 06:18 11/21/24 06:18 Micro: Microbiology 11/07/24 09:57 Swab (Method) Nasal Screen MRSA/MSSA - Final Physical Exam Narrative Neurological exam of the lower extremities shows 5x5 power. Normal sensations across all dermatomes. Physical examination of the back and belly shows surgical dressing CDI. Const alert, oriented x3 and no apparent distress Assessment & Plan Assessment/Plan (1) Status post lumbar spinal fusion: PLAN: Plan Postop day 2 L1-3 fusion and removal reinsertion of prior hardware. Pain in good control. Passed gas. Advance to solid diet. Cleared PT. Okay to discharge home today after tolerates lunch. Follow-up in clinic in 2 weeks.
[2024-11-22 13:44] VITALS: O2SAT 96
[2024-11-22 15:04] VITALS: BP 127/74; PULSE 93; RESP 18; TEMP 37; O2SAT 99
--- NOTE | 2024-11-22 15:07 | PN_ITS ---
Subjective Subjective Patient seen and examined. He had no active complaints. Pain was fairly well- controlled though he said it was coming to time for his pain meds. Review of systems otherwise negative. He has remained hemodynamically stable. Objective Data Objective Data Vital Signs: Vital Signs Temp Pulse Resp BP Pulse Ox O2 Del Method O2 Flow Rate 98.6 F 93 18 127/74 H 99 Room Air 4 11/22/24 15:04 11/22/24 15:04 11/22/24 15:04 11/22/24 15:04 11/22/24 15:04 11/22/24 15:04 11/21/24 01:19 Oxygen Flow Rate (L/min) 4 Oxygen Delivery Method Room Air Weight: 220 lb 6.4 oz Body Mass Index (BMI) 31.6 Intake & Output: Intake and Output for Last 24 Hours 11/20/24 11/21/24 11/22/24 23:59 23:59 23:59 Intake Total 2709.75 / 2709.75 1510 / 1510 600 / 600 Output Total 300 / 300 Balance 2409.75 / 2409.75 1510 / 1510 600 / 600 Lab / Micro Data 11/21/24 06:18 11/21/24 06:18 Micro: Microbiology 11/07/24 09:57 Swab (Method) Nasal Screen MRSA/MSSA - Final Physical Exam Const alert, oriented x3, no apparent distress and well nourished General Appearance: cooperative and well developed HEENT normocephalic, head/scalp atraumatic, moist oral mucous membranes, oropharynx normal and gingiva normal Eyes PERRL and EOMs intact bilaterally Neck no lymphadenopathy and supple Lymph Lymphatic: no lymphadenopathy noted Resp normal respiratory effort, normal air movement, no retractions, no use of accessory muscles and clear to auscultation bilaterally Cardio regular rate, regular rhythm, S1 normal heart sound, S2 normal heart sound and no murmurs GI normal to inspection, nondistended, normoactive bowel sounds, soft to palpation, non-tender and non-distended Extremity normal capillary refill, no clubbing, cyanosis or edema and no calf tenderness Skin Skin Narrative: intact dressing over lower back at site of surgery Neuro no focal motor deficits Neuro Narrative: Moves all extremities spontaneously. Motor Exam: general weakness Psych thought process normal, cooperative and affect normal Appearance: appropriate Assessment & Plan Assessment/Plan (1) History of lumbar fusion: (2) Graves' disease: (3) Hyperlipidemia: QUALIFIERS: Hyperlipidemia type: unspecified Qualified Code(s): E 78.5 - Hyperlipidemia, unspecified PLAN: Plan #Severe back pain and lower extremity pain due to intervertebral disc degeneration * S/p L1-L3 spinal fusion and removal of prior hardware. * Management as per spine surgery. P.o. Tylenol, oxycodone and IV morphine as needed * Incentive spirometry. Fall precautions. * today is POD 2 #Hypothyroidism: On Synthroid # Hypertension: On lisinopril. IV hydralazine prn. #Type 2 diabetes mellitus: On metformin. Insulin sliding scale. Accu-Cheks ACHS. #DVT prophylaxis: As per primary service. Currently on SCDs. Charges/Coding Visit Charges Inpatient E&M: 08467 Subs Hosp L2
== END 2024-11-22 15:53 | disposition home or self-care (01) | DRG 448 ==
LOC: ACINP 15:23 → MS3 16:13
PROVIDERS: Anesthesiology; Student in an Organized Health Care Education/Training Program; Admitting Provider Orthopaedic Surgery Orthopaedic Surgery of the Spine; PCP Family Medicine; Referring Provider Orthopaedic Surgery Orthopaedic Surgery of the Spine; Visit Provider Orthopaedic Surgery Orthopaedic Surgery of the Spine
PROC: 0SG10AJ Fusion of 2 or more Lumbar Vertebral Joints with Interbody Fusion Device, Posterior Approach, Anterior Column, Open Approach (ICD-10-PCS; principal; 2024-11-20 08:45)
DX: M48.062 Spinal stenosis, lumbar region with neurogenic claudication (principal); E03.9 Hypothyroidism, unspecified; E11.9 Type 2 diabetes mellitus without complications; I10 Essential (primary) hypertension; E05.90 Thyrotoxicosis, unspecified without thyrotoxic crisis or storm; E78.5 Hyperlipidemia, unspecified; M51.16 Intervertebral disc disorders with radiculopathy, lumbar region; E05.00 Thyrotoxicosis with diffuse goiter without thyrotoxic crisis or storm; M51.360 Other intervertebral disc degeneration, lumbar region with discogenic back pain only; Z79.84 Long term (current) use of oral hypoglycemic drugs; Z79.899 Other long term (current) drug therapy; Z79.82 Long term (current) use of aspirin; Z79.890 Hormone replacement therapy; Z98.1 Arthrodesis status
CPT/HCPCS: 36415; 72100; 72110; 76000; 80048; 82962; 83036; 83735; 85027; 86703; 86706; 86708; 86803; 86850; 86900; 86901; 87081; 94668; 97162; 97166; C1713; J2405; J3475

== ENCOUNTER → 2024-12-19 | Outpatient (CLI) | payer MEDICARE, SELFPAY ==
[2024-12-19 12:46] LABS: Absolute Lymphocyte Count 1.51 X10^3/uL (0.83-4.51); Absolute Neutrophil Count 3.4 X10^3/uL (2.0-7.7); Basophil# 0.05 X10^3/uL; Basophil% 0.8 % (0-1); Eosinophil# 0.36 X10^3/uL; Eosinophils% 6.1 % (0-5); Hematocrit 39.5 % (40-54); Lymphocyte # 1.51 X10^3/ul (0.83-4.51); Lymphocyte % 25.5 % (19-41); Mean Corp Hgb Conc 32.9 g/dL (32-36); Mean Corpuscular Hgb 29.7 pg (27.0-32.0); Mean Corpuscular Volume 90.2 fL (80-94); Mean Platelet Vol. 10.2 fl (6.2-12.0); Monocyte# 0.51 X10^3/uL; Monocyte% 8.6 % (0-10); NRBC Flagged by Analyzer 0 % (0-5); Neutrophil # 3.44 X10^3/uL (2.7-7.7); Neutrophil % 58.3 % (47-70); Platelet Count 311 K/mm3 (150-450); RBC Distribution Width CV 13.7 % (11.6-14.6); RBC Distribution Width SD 45.2 fl (35.1-43.9); Red Blood Count 4.38 M/mm3 (4.6-6.2); White Blood Count 5.9 K/mm3 (4.4-11.0)
[2024-12-19 13:46] LABS: ALB/GLOB Ratio 1.6 RATIO (0.9-2.4); AST(SGOT) 17 U/L (<=37); Alanine Aminotransfer ALT/SGPT 16 U/L (<=46); Albumin, Serum 4.2 g/dL (3.4-4.8); Alkaline Phosphatase 74 U/L (40-129); Anion Gap 12 (5-15); BUN 22 mg/dL (4-19); BUN/Creat Ratio 20.3 RATIO (10-20); Calcium,Total 9.9 mg/dL (7.6-11.0); Carbon Dioxide 21.6 mmol/L (21.0-32.0); Chloride 105 mmol/L (98-108); Creatinine, Serum 1.09 mg/dL (0.70-1.20); EST Glomerular Filtration Rate 73 (>60); Globulin 2.7 g/dL (2.2-4.2); Glucose 95 mg/dL (70-99); Magnesium 2.1 mg/dL (1.5-2.2); Potassium 4.9 mmol/L (3.3-5.1); Protein, Total 6.9 g/dL (5.9-8.4); Sodium Level 138 mmol/L (133-145); Total Bilirubin 0.28 mg/dL (0.00-1.30)
== END | disposition home or self-care (01) ==
LOC: MFPLAB 09:56
PROVIDERS: PCP Family Medicine; Referring Provider Family Medicine; Visit Provider Family Medicine
DX: D64.9 Anemia, unspecified (principal); E05.00 Thyrotoxicosis with diffuse goiter without thyrotoxic crisis or storm; R63.4 Abnormal weight loss
CPT/HCPCS: 36415; 80053; 83735; 84443; 85025

== ENCOUNTER 2025-02-12 11:00 | Outpatient (RCR) | payer MEDICARE, SELFPAY ==
--- NOTE | 2024-12-17 16:47 | HP.PTEVAL_ITS ---
Patient's Visit Information Visit Information Visit Information: JIMENA GUAJARDO is a 69 year old M referred to Physical Therapy by Dr. Mayank Rodirguez MD with a diagnosis of S/P LUMBAR FUSION 11/20/24. Date of Evaluation: 12/12/24 Physical Therapist: Mireya Dockery PT, Cert MDT Visit Plan Frequency: 2x /Week Duration: 6-8 WEEKS Plan: *NO BENDING, LIFTING > 4 LBS OR TWISTING UNTIL AT LEAST FOLLOW UP WITH DR. RODRIGUEZ AT ~ 6 WKS PO. FOCUS ON DYNAMIC LUMBAR STABILIZATION WITH NEUTRAL SPINE. AVOID PERIPHERALIZATION OF PAIN AND EDUCATE PATIENT IN SAME. USE CP NEEDED TO HELP WITH PAIN AND INFLAMMATION. LE FUNCTIONAL STRENGTHENING. POSTURE CORRECTION/STRENGTH TRAINING. INSTRUCTION IN PROPER BODY MECHANICS - HIP HINGE. CODI LE HIP FLEXOR, HS AND CALF STRETCHING. Subjective Subjective: Work/Leisure: RETIRED/DISABLED - DUE TO SPINAL INJURY. Present symptoms: LOW BACK AND LEFT SIDE INCISION AREA PAIN. MUSCLE SORENESS IN CALVES WITH WALKING BUT OTHERWISE DENIES CODI LE PAIN, NUMBNESS AND TINGLING. PATIENT REPORTS HIS BACK AND LEG SYMPTOMS HE HAD BEFORE SURGERY FOR THE MOST PART ARE GONE. Present since: CHRONIC BACK AND LEG PAIN AND WEAKNESS. Pain Scale: WORST 8/10, LEAST 5/10 Currently: 5/10 Is it getting better, worse or staying the same: GETTING BETTER - NOTICEABLY GETTING BETTER DURING THE DAY. Commenced as a result of: WORK INJURY - COMPUTERS (25 TO 30 LBS FELL ON HEAD) ABOUT 25 YEARS AGO LEADING TO THE START OF SPINAL PROBLEMS Symptoms at onset: ABOUT 1.5 YEARS AGO STARTED NOTICING INCREASED BACK AND LEG PAIN AND WEAKNESS WITH INCREASED ACTIVITY. LAST FEW MONTHS GETTING HARDER AND HARDER TO WALK, COULDN'T STAND UP STRAIGHT AND ALMOST HAD TO CRAWL UP STAIRS ONE AT A TIME PULLING HIMSELF WITH HANDRAIL. Worse: THE DAY PROGRESSES, PROLONGED WALKING, MOVING AROUND DURING THE DAY. SPINAL CORD STIMULATOR - TRIED TURNNING IT BACK ON BUT TURNED IT BACK OFF BECAUSE SEEMS TO IRRITATE IT. Better: IN THE MORNING, ICE, AFTER SHOWER, FREQUENT CHANGE OF POSITION/ACTIVITY. LAYING DOWN, PERCOCET AND M. RELAXER AT NIGHT, OTC TYLONOL NEEDED DURING THE DAY. Disturbed sleep: YES - NOT WAKING UP BECAUSE OF PAIN. Previous history/Previous treatment: PRIOR LUMBAR FUSION 24 YEARS AGO. SPINAL STIMULATOR. A LOT OF JENA'S. 2 ABLATIONS. STEM CELL THERAPY - WORKED THE BEST Treatment this episode: LUMBAR FUSION 11/20/24 Gait: USING CANE INTERMITTENTLY FOR DISTANCE AND UNEVEN SURFACES. NO FALLS Bowel or Bladder Dysfunction: NO Unexplained weight loss: NO OTHER: BONE STIMULATOR 2 HOURS A DAY - TOLERATES IT BETTER LYING DOWN. CURRENT RESTICTIONS: NO BLT. NO LIFTING > 4 LBS. FOLLOW UP AGAIN WITH DR. RODRIGUEZ ~ 6 WKS PO. NO BRACE. CAN DRIVE IF NOT DISTRACTED BY PAIN. PMH/Recent major surgery: Wears hearing aid Loss of hearing Wears glasses History of steroid therapy Thyroid disease Ambulates with cane Hypertension Pre-diabetes Back pain Non-smoker History of echocardiogram Cardiology follow-up encounter History of Holter monitoring GERD (gastroesophageal reflux disease) Obesity Graves' disease Hyperlipidemia Hx of appendectomy H/O hernia repair S/P insertion of spinal cord stimulator H/O arthroscopic knee surgery History of neck surgery History of back surgery History of left heart catheterization 05/08/17 Objective Objective: INDEP GUARDED GAIT INTO PT WITH DECREASED CADANCE, NO AD AND NO LOB. Sensory deficit: CODI LE LIGHT TOUCH SENSATION IS GROSSLY INTACT AND SYMMETICAL. ROM deficit: CODI LE HIP FLEXOR, HS AND CALF TIGHTNESS. Motor deficit: CODI LE'S GROSSLY 5/5 WITH MMT'ING EXCEPT HIPS 4/5. Dural Signs: NEGATIVE CODI LE'S. Lumbar mvmt loss: NT Core strength: FAIR TUG TIME: 10.78 WITHOUT AD 30 STS TEST: 5 WITH HANDS ON KNEES (NO FOAM ON CHAIR). Balance/Special Test Scores Oswestry Low Back Score: 27 Goals Goal 1:: DECREASE C/O BACK AND LE SX'S BY AT LEAST 50% TO EASE ADL'S AND HELP PATIENT RETURN TO PLOF Goal Time Frame: 6-8 Weeks Goal 2:: IMPROVE PERSONAL CARE, SITTING, STANDING, WALKING, LIFTING, TRAVEL, AND YARD WORK FUNCTION WITH AT LEAST 8 POINT IMPROVEMENT IN LUMBAR OSWESTRY SCORE. Goal Time Frame: 8-12 Weeks Goal 3:: INSTRUCT IN PROPHYLAXIS Goal Time Frame: 8-12 Weeks Rehabilitation Potential Physical Therapy Diagnosis: CORE AND CODI LE WEAKNESS AND DECREASED ACTIVITY TOLERANCE WITH C/O BACK PAIN AND LE SORENESS S/P LUMBAR SURGERY 11/20/24. Rehabilitation Potential: Good Anticipated Interventions Patient/Client Instruction: Educate patient on: Condition, Plan of Care and Risk Factors For the Purpose of:: To improve self management Therapeutic Exercise to Include: Strength training, Body mechanics, Postural training, Flexibilty training, Neuromotor development and Dynamic Lumbar Stabilization For the Purpose of:: To decrease pain, To improve muscle performance and motor function, To increase tolerance to activity/condition/position, To improve ability of physical actions for home/community/work/leisure, To increase flexibility/ROM and To improve self management Cryotherapy (ice pack, ice massage): Yes For the Purpose of:: To decrease pain and To decrease swelling/inflammation Text: Thank you for the opportunity to evaluate your patient. For Medicare and Medicare HMO plans, please review the plan of care and approve it. It will need to be FAXED BACK to us at [phone] for Medicare purposes. For Medicare only, by signing this I certify the plan of care. Please let me know if there are questions or concerns regarding this plan of care. Physician Signature: Date:
--- NOTE | 2025-01-20 11:00 | HP.PTREVAL_ITS ---
Re-Evaluation Intro: Dr. Mayank Figueroa MD, It has been my pleasure to treat JIMENA GUAJARDO over the last 12 visits for S/P LUMBAR FUSION 11/20/24. Please see the progress note below for an update on the physical therapy plan of care! Subjective Subjective: PATIENT REPORTS HE HAS LESS BACK PAIN, BETTER MOBILITY IN HIS BACK/LESS STIFFNESS, BETTER, LEG STRENGTH AND BETTER SHLD STRENGTH. DROVE ALL THE WAY TO [place] BY HIMSELF AND HAD SOME INCREASED PAIN BUT SOON HE LAYED DOWN WAS ABLE TO RELIEVE IT - STIRRED UP HIS R KNEE AND TOLD THERAPY THE NEXT DAY. DID MAKE STOPS JUST COULDN'T LAY DOWN. Objective Objective/Function: PATIENT WAS SEEN TODAY FOR RE-ASSESSMENT OF PROGRESS TOWARD THE SET PT GOALS AND THE NEED FOR FURTHER PHYSICAL THERAPY VS READINESS FOR DISCHARGE. THIS PATIENT IS PROGRESSING NICELY WITH PT. HE IS GETTING STRONGER BUT STILL HAS CORE CORE AND LE WEAKNESS AND STIFFNESS. HE WOULD LIKE TO TRY TO TRANSITION TO INDEP GYM PROGRAM. HE IS APPROPRIATE FOR AND AGREEABLE TO CONT PT TO HELP WITH SAFE TRANSITION TO APPROPRIATE PROGRESSIVE RESISTIVE EX WITH GYM MACHINES. UPON EXAM TODAY: Core strength: FAIR. Patient denies increased pain with testing. TUG TIME = 6.89 WITHOUT AD 30 STS TIME = 11 WITHOUT UE ASSIST. Plan Plan Plan: CONT PT 2X'S A WK X 4 WKS. FOCUS ON TRANSITION TO GYM PROGRAM WITH GOOD [employer] AND NO BLT. *CURRENT LIFTING RESTRICTION IS 16 LBS* FOCUS ON DYNAMIC LUMBAR STABILIZATION WITH NEUTRAL SPINE. NO BLT UNTIL 3 MO PO 02/20/25. AVOID PERIPHERALIZATION OF PAIN AND CONT TO EDUCATE PATIENT IN SAME. USE CP NEEDED TO HELP WITH PAIN AND INFLAMMATION. LE FUNCTIONAL STRENGTHENING. POSTURE CORRECTION/STRENGTH TRAINING. INSTRUCTION IN PROPER BODY MECHANICS - HIP HINGE. CODI LE HIP FLEXOR, HS AND CALF STRETCHING. Balance/Gait/Functional tests Balance/Special Test Scores Oswestry Low Back Score: 11 Goals Goals Goal 1:: DECREASE C/O BACK AND LE SX'S BY AT LEAST 50% TO EASE ADL'S AND HELP PATIENT RETURN TO PLOF Goal Time Frame: 6-8 Weeks Goal Progress: Goal Met Goal 2:: IMPROVE PERSONAL CARE, SITTING, STANDING, WALKING, LIFTING, TRAVEL, AND YARD WORK FUNCTION WITH AT LEAST 8 POINT IMPROVEMENT IN LUMBAR OSWESTRY SCORE. Goal Time Frame: 8-12 Weeks Goal Progress: Goal Met Goal 3:: INSTRUCT IN PROPHYLAXIS Goal Time Frame: 8-12 Weeks Goal Progress: Progressing Anticipated Interventions Anticipated Interventions Patient/Client Instruction: Educate patient on: Condition, Plan of Care and Risk Factors For the Purpose of:: To improve self management Therapeutic Exercise to Include: Strength training, Body mechanics, Postural training, Flexibilty training, Neuromotor development and Dynamic Lumbar Stabilization For the Purpose of:: To decrease pain, To improve muscle performance and motor function, To increase tolerance to activity/condition/position, To improve abili ty of physical actions for home/community/work/leisure, To increase flexibility/ROM and To improve self management Cryotherapy (ice pack, ice massage): Yes For the Purpose of:: To decrease pain and To decrease swelling/inflammation Re-Evaluation Ending Re-evaluation ending: Please do not hesitate to contact me at [phone] by phone or if you have questions or concerns regarding this new plan of care! Sincerely, Mireya Dockery, PT, Cert MDT
--- NOTE | 2025-02-12 11:35 | HP.PTDCSUM ---
Discharge Summary D/C summary: It has been my pleasure to treat JIMENA GUAJARDO referred by Dr. Mayank Rodriguez MD, with the diagnosis of S/P LUMBAR FUSION 11/20/24 for a total of 19 visit(s). Discharge Date: 02/12/25 Please see the following information for a summary of their discharge status. Subjective Subjective: I'M AMAZED THAT I FEEL THIS GOOD AT 3 MONTHS. HE REPORTS HE IS DOING MORE AROUND THE HOUSE TOO. PATIENT REPORTS HE SIGNED UP FOR A [employer] MEMBERSHIP TO CONTINUE EXERCISING ON HIS OWN. HE STATES HE FEEL CONFIDENT DONG THE EX'S INDEP'LY NOW. I'VE BEEN DEALING MORE WITH SORENESS THAN PAIN FOLLOW UP PENDING WITH DR. RODRIGUEZ NEXT Monday02/20/25. PATIENT REPORTS HE FEELS LIKE HE IS CONTINUING TO GET STRONGER AND PLANS TO CONTINUE. Pain LB: Pain Intensity (Out of 10): 1 Overall Improvement % Improvement: 80 Objective Objective/Function: PATIENT WAS SEEN TODAY FOR RE-ASSESSMENT OF PROGRESS TOWARD THE SET PT GOALS AND THE NEED FOR FURTHER PHYSICAL THERAPY VS READINESS FOR DISCHARGE. THIS PATIENT HAS DONE GREAT WITH PHYSICAL THERAPY. HE IS INDEP WITH A GYM PROGRAM AND APPROPRIATE FOR DISCHARGE. HE IS EXPRESSING BEING VERY HAPPY WITH HIS PROGRESS AND FEELING CONFIDENT WITH CONTINUING ON HIS OWN AT THIS POINT. UPON EXAM TODAY: Core strength: FAIR. TUG TIME = 6.28 WITHOUT AD 30 STS TIME = 12 WITHOUT UE ASSIST. LAST EX SESSION INCLUDED: Nu-step LVL-3; 5 minutes Slant board calf 2x1' Seated Mid Rows (27): 30# 2x15 Seated Lat Pulldowns (12):2x15 45# Chest Fly's (29): 30# 2x10 Rear delts (29): 25# 2x10 Seated Hip Abd (4) 2x15 50# n/t Leg Press: sled 4 seat 3 100# 3x10 Leg curls: 2x10 30# Goals Goal 1:: DECREASE C/O BACK AND LE SX'S BY AT LEAST 50% TO EASE ADL'S AND HELP PATIENT RETURN TO PLOF Goal Progress: Goal Met Goal 2:: IMPROVE PERSONAL CARE, SITTING, STANDING, WALKING, LIFTING, TRAVEL, AND YARD WORK FUNCTION WITH AT LEAST 8 POINT IMPROVEMENT IN LUMBAR OSWESTRY SCORE. Goal Progress: Goal Met Goal 3:: INSTRUCT IN PROPHYLAXIS Goal Progress: Goal Met Plan Plan: D/C. PATIENT AGREEABLE. D/C Information d/c sentence: If there are questions or concerns regarding this patient's physical therapy, please feel free to call me at [phone]. Thank you for the referral of this patient. Sincerely, Mireya Dockery, PT, Cert MDT Balance/Gait/Functional tests Balance/Special Test Scores Oswestry Low Back Score: 11 Improvement % Improvement: 80
== END 2025-02-12 19:00 | disposition home or self-care (01) ==
LOC: PT 11:00
PROVIDERS: PCP Family Medicine; Referring Provider Orthopaedic Surgery Orthopaedic Surgery of the Spine; Visit Provider Orthopaedic Surgery Orthopaedic Surgery of the Spine
DX: Z98.1 Arthrodesis status (principal)
CPT/HCPCS: 97110; 97162; 97530